=== PATIENT | male | born 1950 | race Caucasian/White ===

== ENCOUNTER 2016-09-14 07:50 | Inpatient (IN) | payer MEDICARE ==
[~2016-09-14] VITALS: Ht 177.8 cm; Wt 77.0 kg
[2016-09-14] VITALS (9 sets, daily range): BP systolic 76–161; BP diastolic 53–99; PULSE 71–90; RESP 16–20; TEMP 97.6–98.4; O2SAT 94–96
[~2016-09-14 07:50] MED LIST: ASAC800T PO; CANA10002 RE; CILO50 PO; CLOP75 PO; ECOT81TA2 PO; LISI-363 PO; LOVA40TA PO; METO25 PO; SODIPAK2; TAB-TAB PO; TAMS0.4C67 PO
--- NOTE | 2016-09-14 08:08 | PD ---
HPI Chief Complaint: Syncope/Near-Syncope Time Seen by Provider: 07:58 Travel History International Travel<30 days: No Contact w/Intl Traveler<30days: No Traveled to known affect area: No History of Present Illness HPI 66-year-old male with history of hypertension, CAD, previous MIs, left-sided carotid endarterectomy, CABG, femoral stents, presents to the ER today because he states that he has been coughing up small amounts of blood after taking several days of aspirin and ibuprofen for a toothache. He states that he felt very clammy this morning, tried to jump up from bed quickly and had a near syncopal episode. He denies any chest pains, shortness of breath, palpitations , fevers, black stools, or other symptoms. Modifying Factors: None Associated Signs & Symptoms: Spitting up blood, near syncopal episode Risk Factors: Cardiac history PFSH Past Medical History Hx Anticoagulant Therapy: Yes (PLAVIX ) Arthritis: No Asthma: No Autoimmune Disease: No Blood Disorders: No Anxiety: No Depression: No Heart Rhythm Problems: No Cancer: No Cardiac Catheterization: Yes (2009) Cardiovascular Problems: Yes (SC) High Cholesterol: Yes Chemotherapy: No Chest Pain: No Congestive Heart Failure: No COPD: No Cerebrovascular Accident: Yes Coronary Artery Disease: Yes Diabetes: No Endocrine: No Gastrointestinal Disorders: Yes GERD: Yes Genitourinary: No Headaches: No Hiatal Hernia: No Hypertension: Yes Immune Disorder: No Kidney Stones: No Musculoskeletal: No Neurologic: Yes Psychiatric: No Reproductive: No Respiratory: No Migraines: No Myocardial Infarction: Yes (X2) Radiation Therapy: No Renal Failure: No Seizures: No Sleep Apnea: No Thyroid Disease: No Ulcer: No Past Surgical History Abdominal Surgery: No AICD: Yes Arteriovenous Shunt: No Cardiac Surgery: Yes (left carotid endarterectomy in April 2011) Coronary Artery Bypass Graft: Yes (3 VESSEL 2001, 1 vessle and valve 2009) Coronary Stent: Yes Ear Surgery: No Endocrine Surgery: No Eye Surgery: No Genitourinary Surgery: No Gynecologic Surgery: No Insulin Pump: No Joint Replacement: No Oral Surgery: No Pacemaker: Yes (wire) Thoracic Surgery: No Other Surgery: Yes (pacer wire) Social History Alcohol Use: Yes (daily) Tobacco Use: Yes (CIGARS 1 X WEEK) Substance Use: Yes (marijuana) Allergies-Medications (Allergen,Severity, Reaction): Coded Allergies: MRI PRECAUTION (Verified Allergy, Severe, PACEMAKER LEAD PER DR MARTINEZ - 08/01/2010 KMD, 09/14/16) Nitrates (Verified Allergy, Severe, Hypotension, 09/14/16) Reported Meds & Prescriptions Reported Meds & Active Scripts Active Reported Cilostazol 50 Mg Tab 50 Mg PO BID Multi Vitamin (Multiple Vitamin) 1 Tab Tab 1 Tab PO DAILY Metoprolol Tartrate 25 Mg Tab 12.5 Mg PO BID Asacol HD (Mesalamine) 800 Mg Tab 800 Mg PO BID Swallow whole. Take on an empty stomach. Lovastatin 40 Mg Tab 80 Mg PO HS Lisinopril 20 Mg Tab 20 Mg PO BID Plavix (Clopidogrel Bisulfate) 75 Mg Tab 75 Mg PO DAILY Canasa Supp (Mesalamine) 1,000 Mg Supp 1,000 Mg [place] HS Aspirin 325 Mg Tab 325 Mg PO DAILY Review of Systems Except as stated in HPI: all other systems reviewed are Neg Physical Exam Narrative GENERAL: Well-nourished, well-developed elderly white male patient in no acute distress at rest. Awake and oriented 3. SKIN: Warm and dry. HEAD: Normocephalic. EYES: No scleral icterus. No injection or drainage. NECK: Supple, trachea midline. CARDIOVASCULAR: Regular rate and rhythm without murmurs, gallops, or rubs. RESPIRATORY: Breath sounds equal bilaterally. No accessory muscle use. GASTROINTESTINAL: Abdomen soft, non-tender, nondistended. MUSCULOSKELETAL: No cyanosis, or edema. BACK: Nontender without obvious deformity. No CVA tenderness. Data Data Last Documented VS Vital Signs Date Time Temp Pulse Resp B/P Pulse Ox O2 Delivery O2 Flow Rate FiO2 09/14/16 10:00 97.8 71 18 128/87 96 Room Air Orders Electrocardiogram (09/14/16 08:04) Complete Blood Count With Diff (09/14/16 08:04) Comprehensive Metabolic Panel (09/14/16 08:04) Magnesium (Mg) (09/14/16 08:04) B-Type Natriuretic Peptide (09/14/16 08:04) Ckmb (Isoenzyme) Profile (09/14/16 08:04) Troponin I (09/14/16 08:04) Act Partial Throm Time (Ptt) (09/14/16 08:04) Prothrombin Time / Inr (Pt) (09/14/16 08:04) Urinalysis - C+S If Indicated (09/14/16 08:04) Chest, Single Ap (09/14/16 08:04) Ct Brain W/O Iv Contrast(Rout) (09/14/16 08:04) Ecg Monitoring (09/14/16 08:04) Iv Access Insert/Monitor (09/14/16 08:04) Oximetry (09/14/16 08:04) Sodium Chloride 0.9% Flush (Ns Flush) (09/14/16 08:15) Orthostatic Vital Signs (09/14/16 08:04) Salicylates (Aspirin) (09/14/16 08:11) Ondansetron Inj (Zofran Inj) (09/14/16 08:45) Sodium Chlor 0.9% 1000 Ml Inj (Ns 1000 M (09/14/16 09:00) Cta Thor Abd Aorta W Iv C W3d (09/14/16 ) Iohexol 350 Inj (Omnipaque 350 Inj) (09/14/16 10:15) Labs Laboratory Tests Test 09/14/16 09/14/16 09/14/16 08:11 09:06 10:30 Prothrombin Time 11.2 SEC Prothromb Time International 1.0 RATIO Ratio Activated Partial 22.4 SEC Thromboplast Time Sodium Level 141 MEQ/L Potassium Level 4.1 MEQ/L Chloride Level 105 MEQ/L Carbon Dioxide Level 30.1 MEQ/L Anion Gap 6 MEQ/L Blood Urea Nitrogen 27 MG/DL Creatinine 1.28 MG/DL Estimat Glomerular Filtration 56 ML/MIN Rate Random Glucose 169 MG/DL Calcium Level 8.3 MG/DL Magnesium Level 1.7 MG/DL Total Bilirubin 0.3 MG/DL Aspartate Amino Transf 15 U/L (AST/SGOT) Alanine Aminotransferase 28 U/L (ALT/SGPT) Alkaline Phosphatase 41 U/L Total Creatine Kinase 77 U/L Troponin I 0.03 NG/ML B-Type Natriuretic Peptide 135 PG/ML Total Protein 6.1 GM/DL Albumin 3.3 GM/DL Salicylates Level 8.1 MG/DL White Blood Count 9.6 TH/MM3 Red Blood Count 3.36 MIL/MM3 Hemoglobin 10.4 GM/DL Hematocrit 30.2 % Mean Corpuscular Volume 90.0 FL Mean Corpuscular Hemoglobin 31.1 PG Mean Corpuscular Hemoglobin 34.5 % Concent Red Cell Distribution Width 12.9 % Platelet Count 210 TH/MM3 Mean Platelet Volume 8.4 FL Neutrophils (%) (Auto) 76.7 % Lymphocytes (%) (Auto) 13.6 % Monocytes (%) (Auto) 8.5 % Eosinophils (%) (Auto) 0.9 % Basophils (%) (Auto) 0.3 % Neutrophils # (Auto) 7.4 TH/MM3 Lymphocytes # (Auto) 1.3 TH/MM3 Monocytes # (Auto) 0.8 TH/MM3 Eosinophils # (Auto) 0.1 TH/MM3 Basophils # (Auto) 0.0 TH/MM3 CBC Comment DIFF FINAL Differential Comment Urine Color YELLOW Urine Turbidity CLEAR Urine pH 6.0 Urine Specific [place] 1.025 Urine Protein NEG mg/dL Urine Glucose (UA) TRACE mg/dL Urine Ketones NEG mg/dL Urine Occult Blood NEG Urine Nitrite NEG Urine Bilirubin NEG Urine Urobilinogen LESS THAN 2.0 MG/DL Urine Leukocyte Esterase NEG Urine RBC 1 /hpf Urine WBC 1 /hpf Urine Hyaline Casts 4 /lpf Urine Mucus FEW /lpf Microscopic Urinalysis Comment CULT NOT INDICATED MDM Medical Decision Making Medical Screen Exam Complete: Yes Emergency Medical Condition: Yes Medical Record Reviewed: Yes Interpretation(s) EKG shows NSR, no ST elevation or depression, and no arrhythmias. No significant T-wave inversions. Laboratory Tests Test 09/14/16 09/14/16 09/14/16 08:11 09:06 10:30 Activated Partial 22.4 SEC Thromboplast Time (24.3-30.1) Blood Urea Nitrogen 27 MG/DL (7-18) Estimat Glomerular Filtration 56 ML/MIN (>89) Rate Random Glucose 169 MG/DL (74-106) Calcium Level 8.3 MG/DL (8.5-10.1) Alkaline Phosphatase 41 U/L (45-117) B-Type Natriuretic Peptide 135 PG/ML (0-100) Total Protein 6.1 GM/DL (6.4-8.2) Albumin 3.3 GM/DL (3.4-5.0) Red Blood Count 3.36 MIL/MM3 (4.50-5.90) Hemoglobin 10.4 GM/DL (13.0-17.0) Hematocrit 30.2 % (39.0-51.0) Neutrophils (%) (Auto) 76.7 % (16.0-70.0) Monocytes (%) (Auto) 8.5 % (0.0-8.0) Urine Mucus FEW /lpf (OCC) Last [address] 09/14/16 0804 Signed Impressions: Service Date/Time: Wednesday, September 14, 2016 08:30 - CONCLUSION: No acute disease. Aden Cardenas MD Aorta CTA 09/14/16 0000 Signed Impressions: Service Date/Time: Wednesday, September 14, 2016 10:07 - CONCLUSION: 1. No evidence of aortic dissection. 2. Moderate focal stenosis involving the origin of the left subclavian artery. 3. Scattered fibrotic scarring and emphysematous changes bilaterally. 4. Uncomplicated colonic diverticulosis. 5. Enlarged prostate with central calcifications. Aden Cardenas MD Differential Diagnosis Coughing up blood, near syncopal episodepneumonia versus hemoptysis versus gastric ulcer versus coagulopathy versus dysrhythmias versus dehydration versus metabolic issues versus GI bleed Narrative Course Patient was initially hypertensive on initial evaluation but became hypotensive during the evaluation in the ER and IV fluids were initiated on the patient. After IV fluid bolus, his blood pressure improves. He appears to be orthostatic. He has Had a bed flat in the ER. Lab work did not indicate significant metabolic issues. His BUN is mildly elevated but not as much as expected for patient with severe dehydration. CAT scans did not reveal any signs of acute pathology. He has no focal neurological deficits. At this point , my plan would be to admit the patient for further evaluation and treatment of hypotension and syncope. Case was discussed with Dr. Willams for admission. Diagnosis Primary Impression: SYNCOPE AND COLLAPSE Admitting Information Admitting Physician Requests: Admit Reynaldo Tay MD Sep 14, 2016 08:08 Reynaldo Tay MD Sep 14, 2016 08:08
[2016-09-14] MEDS ORDERED: SODIUM CHLORIDE 0.9% FLUSH 5 ML FLUSH IVF PRN (08:15)
[2016-09-14 08:41] LABS: APTT (PATIENT) 22.4 SEC (24.3-30.1); PROTHROMBIN TIME - PATIENT 11.2 SEC (9.8-11.6)
[2016-09-14 08:45] LABS: ALT (GPT) 28 U/L (12-78); ANION GAP 6 MEQ/L (5-15); AST (GOT) 15 U/L (15-37); BICARBONATE 30.1 MEQ/L (21.0-32.0); BLOOD UREA NITROGEN 27 MG/DL (7-18); CHLORIDE 105 MEQ/L (98-107); MAGNESIUM 1.7 MG/DL (1.5-2.5); POTASSIUM 4.1 MEQ/L (3.5-5.1); SODIUM (NA) 141 MEQ/L (136-145)
[2016-09-14] MEDS ORDERED: ONDANSETRON HCL 4 MG/2 ML VIAL IV PUSH ONE (08:45)
[2016-09-14 08:50] LABS: ALKALINE PHOSPHATASE 41 U/L (45-117); GLOMERULAR FILTRATION RATE 56 ML/MIN (>89); TOTAL BILIRUBIN ADULT 0.3 MG/DL (0.2-1.0)
[2016-09-14 08:58] LABS: CREATINE KINASE 77 U/L (39-308)
[2016-09-14] MEDS ORDERED: SODIUM CHLOR 0.9% 1000 ML INJ 1,000 ML IV ONE (09:00)
--- NOTE | 2016-09-14 09:14 | RADRPT ---
EXAM DATE/TIME: 09/14/2016 08:30 [facility] COMPARISON: No previous studies available for comparison. INDICATIONS : Dizziness RADIATION DOSE: 42.12 CTDIvol (mGy) MEDICAL HISTORY : Hypertension. Cardiovascular disease Cardiovascular disease SURGICAL HISTORY : None. ENCOUNTER: Initial ACUITY: 1 day PAIN SCALE: 0/10 LOCATION: cranial TECHNIQUE: Multiple contiguous axial images were obtained of the head. Using automated exposure control and adj ustment of the mA and/or kV according to patient size, radiation dose was kept as low as reasonably a chievable to obtain optimal diagnostic quality images. FINDINGS: CEREBRUM: The ventricles are normal for age. No evidence of midline shift, mass lesion, hemorrhage or acute in farction. No extra-axial fluid collections are seen. POSTERIOR FOSSA: The cerebellum and brainstem are intact. The 4th ventricle is midline. The cerebellopontine angle i s unremarkable. EXTRACRANIAL: The visualized portion of the orbits is intact. SKULL: The calvaria is intact. No evidence of skull fracture. CONCLUSION: No acute disease. Aden Cardenas MD on September 14, 2016 at 9:11 Board Certified Radiologist. This report was verified electronically.
[2016-09-14 09:17] LABS: AUTOMATED NEUTROPHIL # 7.4 TH/MM3 (1.8-7.7); BASOPHIL % 0.3 % (0.0-2.0); EOSINOPHIL # 0.1 TH/MM3 (0-0.4); EOSINOPHIL % 0.9 % (0.0-4.0); HEMATOCRIT 30.2 % (39.0-51.0); HEMO FLAGS DIFF FINAL; LYMPH % 13.6 % (9.0-44.0); LYMPHOCYTE # 1.3 TH/MM3 (1.0-4.8); MEAN CORPUSCULAR HEMOGLOBIN 31.1 PG (27.0-34.0); MEAN CORPUSCULAR HGB CONC 34.5 % (32.0-36.0); MONO % 8.5 % (0.0-8.0); NEUT % 76.7 % (16.0-70.0); PLATELET COUNT 210 TH/MM3 (150-450); RED BLOOD COUNT 3.36 MIL/MM3 (4.50-5.90); RED CELL DISTRIBUTION WIDTH 12.9 % (11.6-17.2); WHITE BLOOD COUNT 9.6 TH/MM3 (4.0-11.0)
--- NOTE | 2016-09-14 09:56 | RADRPT ---
EXAM DATE/TIME: 09/14/2016 08:19 [facility] COMPARISON: No previous studies available for comparison. INDICATIONS: Syncope, nausea, chest tightness. MEDICAL HISTORY: Myocardial infarction. SURGICAL HISTORY: CABG. Coronary artery stent. ENCOUNTER: Initial ACUITY: 1 day PAIN SCORE: 0/10 LOCATION: Bilateral chest FINDINGS: Sternal wires from previous bypass are noted. Band and pacing lead is noted on the left. Heart and pulmonary vascularity are normal. Portion of bony skeleton visualized unremarkable. CONCLUSION: Negative chest for acute disease. Anton Amado MD FACR on September 14, 2016 at 9:12 Board Certified Radiologist. This report was verified electronically.
[2016-09-14] MEDS ORDERED: IOHEXOL 350 MG/ML 10 ML VIAL (for RAD DIAG) IV ONE (10:15)
[2016-09-14 10:49] LABS: BLOOD, URINE NEG (NEG); GLUCOSE,URINE TRACE mg/dL (NEG); HYALINE CAST, URINE 4 /lpf (RARE); KETONE, URINE NEG (NEG); MUCUS URINE FEW /lpf (OCC); NITRITE,URINE NEG (NEG); URINE COLOR YELLOW (YELLW/STRAW)
[2016-09-14 10:51] LABS: COMMENT (UR) CULT NOT INDICATED; CULTURE IF INDICATED CULT NOT INDICATED
[2016-09-14] MEDS ORDERED: LOVA40TA PO (10:51)
[2016-09-14] MEDS ORDERED: PLAV75TA29 PO (10:51)
[2016-09-14] MEDS ORDERED: ASPI325T PO (10:51)
[2016-09-14] MEDS ORDERED: ASAC800T PO (10:51)
[2016-09-14] MEDS ORDERED: LISI-515 PO (10:51)
[2016-09-14] MEDS ORDERED: CILO50TA PO (10:51)
[2016-09-14] MEDS ORDERED: METO25TA3 PO (10:51)
[2016-09-14] MEDS ORDERED: CANA10002 PR (10:51)
[2016-09-14] MEDS ORDERED: MULT-135 PO (10:51)
--- NOTE | 2016-09-14 11:03 | EKG ---
Date Performed: 09/14/2016 Time Performed: 08:08:06 PTAGE: 66 years EKG: Sinus rhythm POSSIBLE RIGHT VENTRICULAR CONDUCTION DELAY BORDERLINE ECG PREVIOUS TRACING : 01/16/2016 07.07 No significant change from previous tracing noted. DOCTOR: Eddie Clemons Interpretating Date/Time 09/14/2016 11:02:16
--- NOTE | 2016-09-14 11:16 | RADRPT ---
EXAM DATE/TIME: 09/14/2016 10:07 [facility] COMPARISON: No previous studies available for comparison. INDICATIONS : Syncope. Coughing up blood. Evaluate for aortic dissection. IV CONTRAST: 75 cc Omnipaque 350 (iohexol) IV RADIATION DOSE: 5.52 CTDIvol (mGy) MEDICAL HISTORY : Hypertension. Cardiovascular disease SURGICAL HISTORY : CABG ENCOUNTER: Initial ACUITY: 1 day PAIN SCALE: 0/10 LOCATION: chest TECHNIQUE: Volumetric scanning was performed using a multi-row detector CT scanner. The data was post processed with a variety of visualization algorithms including full volume maximum intensity projection, multi -planar sliding thin slab reformation, curved planar reformation, and surface rendering techniques. Using automated exposure control and adjustment of the mA and/or kV according to patient size, radiat ion dose was kept as low as reasonably achievable to obtain optimal diagnostic quality images. FINDINGS: LUNGS: Scattered fibrotic scarring in the minimal emphysematous changes are noted bilaterally. There is no c onsolidation or pneumothorax. No concerning pulmonary nodule is visualized. No pleural fluid is pre sent. MEDIASTINUM: No abnormally enlarged lymph nodes by CT criteria. No axillary or hilar abnormalities are identified. ABDOMEN: Uncomplicated colonic diverticulosis is noted. The liver and spleen are free of focal defects. The ga llbladder and pancreas demonstrate no abnormality. The adrenal glands are normal. The kidneys demonst rate no evidence of solid renal mass or hydronephrosis. No free fluid or abdominal masses are identif ied. No para-aortic adenopathy is seen. PELVIS: No evidence of free fluid or pelvic mass. No abnormally enlarged inguinal or retroperitoneal lymph no jess are present. The bladder is unremarkable. The prostate is enlarged and contains central calcifica tions. THORACIC AORTA: The thoracic aortic root is normal with normal branching of the great vessels. There is no evidence of aneurysm or dissection. There is moderate focal stenosis involving the origin of the left subclavi an artery. ABDOMINAL AORTA: The aorta is normal in caliber without aneurysm or dissection. The renal arteries are patent bilater ally. The proximal celiac and superior mesenteric arteries are patent and normal in diameter. PELVIC VESSELS: Bilateral common iliac stents are noted. The internal iliac and external iliac vessels are patent wit hout aneurysm or stenosis. CONCLUSION: 1. No evidence of aortic dissection. 2. Moderate focal stenosis involving the origin of the left subclavian artery. 3. Scattered fibrotic scarring and emphysematous changes bilaterally. 4. Uncomplicated colonic diverticulosis. 5. Enlarged prostate with central calcifications. Aden Cardenas MD on September 14, 2016 at 11:07 Board Certified Radiologist. This report was verified electronically.
[2016-09-14] MEDS ORDERED: ACETAMINOPHEN 325 MG TAB PO PRN (12:30)
[2016-09-14] MEDS ORDERED: PANTOPRAZOLE SODIUM 40 MG VIAL IV PUSH SCH (12:30)
[2016-09-14] MEDS ORDERED: SODIUM CHLOR 0.9% 1000 ML INJ 1,000 ML IV SCH ×2 (12:30→18:00)
[2016-09-14] MEDS ORDERED: ONDANSETRON HCL 4 MG/2 ML VIAL IV PRN (12:30)
--- NOTE | 2016-09-14 16:38 | HHI.HP ---
HPI Service [facility] Hospitalists Primary Care Physician Galindo Garcia MD Admission Diagnosis vomiting blood. Chief Complaint: vomiting blood Travel History International Travel<30 Days: No Contact w/Intl Traveler <30 Da: No Traveled to Known Affected Are: No History of Present Illness Pt is 66 yo with cad and pad who developed right bottom molar toothache 3 days ago. His dentist advised extraction of 2 bottom molars for decay in past. he flossed on Wednesday then developed severe intractable pain. He began taking asa 650mg q2hr x 3 days , he took ibuprofen x 10 pills, advil pm x 6 pills and also ultram and his usual plavix and pletal. he usually takes 3 or4 4 shots whiskey per day but none over past 3 days. this AM he awoke in sweat with epigastric discomfort. He jumped up from bed and nearly passed out but caught himsel and no loc. witness vomting of bright red blood into toilet. no melena or brbpr..no further episodes. In ED pt was orthostatic. He also reports mild dizziness upon standing for many months and stopped flomax..but still with some sx's. Review of Systems Other vomited blood. epigastric pain. near syncope. toothache Past Family Social History Past Medical History cad, cabg x 3, redo cabg x 1 with mitral valve repair Left CEA bilateral lower ext stenting for pad htn ulcerative colitis hyperlipidemia Reported Medications Cilostazol 50 Mg Tab 50 Mg PO BID Multi Vitamin (Multiple Vitamin) 1 Tab Tab 1 Tab PO DAILY Metoprolol Tartrate 25 Mg Tab 12.5 Mg PO BID Asacol HD (Mesalamine) 800 Mg Tab 800 Mg PO BID Swallow whole. Take on an empty stomach. Lovastatin 40 Mg Tab 80 Mg PO HS Lisinopril 20 Mg Tab 20 Mg PO BID Plavix (Clopidogrel Bisulfate) 75 Mg Tab 75 Mg PO DAILY Canasa Supp (Mesalamine) 1,000 Mg Supp 1,000 Mg [place] HS Aspirin 325 Mg Tab 325 Mg PO DAILY Allergies: Coded Allergies: MRI PRECAUTION (Verified Allergy, Severe, PACEMAKER LEAD PER DR MARTINEZ - 08/01/2010 [facility], 09/14/16) Nitrates (Verified Allergy, Severe, Hypotension, 09/14/16) Family History nc Social History tob 1ppd x 40yrs quit x 8yrs 3 or 4 shots whiskey per day Physical Exam Vital Signs heent neg heart reg lung cta abd s/nt/nabs ext no edema tatoos. Vital Signs Date Time Temp Pulse Resp B/P Pulse Ox O2 Delivery O2 Flow Rate FiO2 09/14/16 15:43 98.4 85 16 129/75 95 09/14/16 14:00 86 18 127/72 95 Room Air 09/14/16 13:00 82 20 92/59 94 Room Air 09/14/16 12:00 90 20 122/75 94 Room Air 09/14/16 10:00 97.8 71 18 128/87 96 Room Air 09/14/16 09:08 66 18 94/54 09/14/16 09:08 70 18 76/53 09/14/16 08:16 88 18 96 Room Air 09/14/16 08:16 96 Room Air 09/14/16 08:00 97.6 84 18 161/99 96 Laboratory Laboratory Tests Test 09/14/16 09/14/16 09/14/16 08:11 09:06 10:30 Prothrombin Time 11.2 Prothromb Time International 1.0 Ratio Activated Partial 22.4 Thromboplast Time Sodium Level 141 Potassium Level 4.1 Chloride Level 105 Carbon Dioxide Level 30.1 Anion Gap 6 Blood Urea Nitrogen 27 Creatinine 1.28 Estimat Glomerular Filtration 56 Rate Random Glucose 169 Calcium Level 8.3 Magnesium Level 1.7 Total Bilirubin 0.3 Aspartate Amino Transf 15 (AST/SGOT) Alanine Aminotransferase 28 (ALT/SGPT) Alkaline Phosphatase 41 Total Creatine Kinase 77 Troponin I 0.03 B-Type Natriuretic Peptide 135 Total Protein 6.1 Albumin 3.3 Salicylates Level 8.1 White Blood Count 9.6 Red Blood Count 3.36 Hemoglobin 10.4 Hematocrit 30.2 Mean Corpuscular Volume 90.0 Mean Corpuscular Hemoglobin 31.1 Mean Corpuscular Hemoglobin 34.5 Concent Red Cell Distribution Width 12.9 Platelet Count 210 Mean Platelet Volume 8.4 Neutrophils (%) (Auto) 76.7 Lymphocytes (%) (Auto) 13.6 Monocytes (%) (Auto) 8.5 Eosinophils (%) (Auto) 0.9 Basophils (%) (Auto) 0.3 Neutrophils # (Auto) 7.4 Lymphocytes # (Auto) 1.3 Monocytes # (Auto) 0.8 Eosinophils # (Auto) 0.1 Basophils # (Auto) 0.0 CBC Comment DIFF FINAL Differential Comment Urine Color YELLOW Urine Turbidity CLEAR Urine pH 6.0 Urine Specific [place] 1.025 Urine Protein NEG Urine Glucose (UA) TRACE Urine Ketones NEG Urine Occult Blood NEG Urine Nitrite NEG Urine Bilirubin NEG Urine Urobilinogen LESS THAN 2.0 Urine Leukocyte Esterase NEG Urine RBC 1 Urine WBC 1 Urine Hyaline Casts 4 Urine Mucus FEW Microscopic Urinalysis Comment CULT NOT INDICATED Result Diagram: 09/14/1690509/14/16 0811 Assessment and Plan Problem List: (1) Hematemesis Status: Acute Plan: Pt is 66 yo with cad and pad who developed right bottom molar toothache 3 days ago. His dentist advised extraction of 2 bottom molars for decay in past. he flossed on Wednesday then developed severe intractable pain. He began taking asa 650mg q2hr x 3 days , he took ibuprofen x 10 pills, advil pm x 6 pills and also ultram and his usual plavix and pletal. he usually takes 3 or4 4 shots whiskey per day but none over past 3 days. this AM he awoke in sweat with epigastric discomfort. He jumped up from bed and nearly passed out but caught himsel and no loc. witness vomting of bright red blood into toilet. no melena or brbpr.. In ED pt was orthostatic. He also reports mild dizziness upon standing for many months and stopped flomax..but still with some sx's. -concern would be development of erosions or ulcers in upper gi tract from overuse of nsaids and antiplts consult GI hold nsaids ppi recheck hgb clears and ivf overnight. dvt prophyaxis. (2) Drug side effects Status: Acute Plan: see above (3) Near syncope Status: Acute Plan: see above (4) Blood loss anemia Status: Acute Plan: see above (5) IBD (inflammatory bowel disease) Status: Chronic (6) Hypertension Status: Chronic (7) PAD (peripheral artery disease) Status: Chronic Physician Certification 2 Midnight Certification Type: Admission for Inpatient Services Order for Inpatient Services 2The services are ordered in accordance with Medicare regulations or non- Medicare payer requirements, as applicable. In the case of services not specified as inpatient-only, they are appropriately provided as inpatient services in accordance with the 2-midnight benchmark. Estimated LOS (days): 2 2 days is the estimated time the patient will need to remain in the hospital, assuming treatment plan goals are met and no additional complications. Post-Hospital Plan: Home Tyrell Willams MD Sep 14, 2016 16:38
[2016-09-14] MEDS ORDERED: PROT40TA PO ×2 (18:04→18:39)
--- NOTE | 2016-09-14 18:25 | PD.CONS ---
HPI History of Present Illness This is a 66 year old male who apparently presents with complaints of upper abdominal discomfort and near syncope then he vomited up some bright red blood the patient has known underlying colitis for which he takes Asacol and apparently he had been experiencing some molar pain and has been using ibuprofen and aspirin for the past several days this is his first time with hematemesis currently is comfortable in bed denies any pain nausea or vomiting denies any melena or hematochezia PFSH Past Medical History cabg x 3, redo cabg x 1 with mitral valve repair Left CEA bilateral lower ext stenting for pad htn ulcerative colitis hyperlipidemia Coded Allergies: MRI PRECAUTION (Verified Allergy, Severe, PACEMAKER LEAD PER DR MARTINEZ - 08/01/2010 KMD, 09/14/16) Nitrates (Verified Allergy, Severe, Hypotension, 09/14/16) Medications Cilostazol 50 Mg Tab 50 Mg PO BID Multi Vitamin (Multiple Vitamin) 1 Tab Tab 1 Tab PO DAILY Metoprolol Tartrate 25 Mg Tab 12.5 Mg PO BID Asacol HD (Mesalamine) 800 Mg Tab 800 Mg PO BID Swallow whole. Take on an empty stomach. Lovastatin 40 Mg Tab 80 Mg PO HS Lisinopril 20 Mg Tab 20 Mg PO BID Plavix (Clopidogrel Bisulfate) 75 Mg Tab 75 Mg PO DAILY Canasa Supp (Mesalamine) 1,000 Mg Supp 1,000 Mg [place] HS Aspirin 325 Mg Tab 325 Mg PO DAILY Family History Noncontributory Social History tob 1ppd x 40yrs quit x 8yrs 3 or 4 shots whiskey per day Review of Systems ROS Review of systems Patient denies any headache dizziness blurry vision, denies any chest pain shortness of breath cough fever chills, Denies any palpitations or fatigue denies any polyuria dysuria hematuria, denies any numbness tingling or weakness, denies any skin rash pruritus or jaundice, denies any easy bruising or bleeding tendency, denies any recent change in mood GI Exam Vitals I&O Vital Signs Date Time Temp Pulse Resp B/P Pulse Ox O2 Delivery O2 Flow Rate FiO2 09/14/16 15:43 98.4 85 16 129/75 95 09/14/16 14:00 86 18 127/72 95 Room Air 09/14/16 13:00 82 20 92/59 94 Room Air 09/14/16 12:00 90 20 122/75 94 Room Air 09/14/16 10:00 97.8 71 18 128/87 96 Room Air 09/14/16 09:08 66 18 94/54 09/14/16 09:08 70 18 76/53 09/14/16 08:16 88 18 96 Room Air 09/14/16 08:16 96 Room Air 09/14/16 08:00 97.6 84 18 161/99 96 Imaging Last Impressions Head CT 09/14/16 0804 Signed Impressions: Service Date/Time: Wednesday, September 14, 2016 08:30 - CONCLUSION: No acute disease. Aden Cardenas MD Chest X-Ray 09/14/16 0804 Signed Impressions: Service Date/Time: Wednesday, September 14, 2016 08:19 - CONCLUSION: Negative chest for acute disease. Anton Amado MD FACR Aorta CTA 09/14/16 0000 Signed Impressions: Service Date/Time: Wednesday, September 14, 2016 10:07 - CONCLUSION: 1. No evidence of aortic dissection. 2. Moderate focal stenosis involving the origin of the left subclavian artery. 3. Scattered fibrotic scarring and emphysematous changes bilaterally. 4. Uncomplicated colonic diverticulosis. 5. Enlarged prostate with central calcifications. Aden Cardenas MD Laboratory Test 09/14/16 09/14/16 09/14/16 08:11 09:06 10:30 Prothrombin Time 11.2 SEC Prothromb Time International 1.0 RATIO Ratio Activated Partial 22.4 SEC Thromboplast Time Sodium Level 141 MEQ/L Potassium Level 4.1 MEQ/L Chloride Level 105 MEQ/L Carbon Dioxide Level 30.1 MEQ/L Anion Gap 6 MEQ/L Blood Urea Nitrogen 27 MG/DL Creatinine 1.28 MG/DL Estimat Glomerular Filtration 56 ML/MIN Rate Random Glucose 169 MG/DL Calcium Level 8.3 MG/DL Magnesium Level 1.7 MG/DL Total Bilirubin 0.3 MG/DL Aspartate Amino Transf 15 U/L (AST/SGOT) Alanine Aminotransferase 28 U/L (ALT/SGPT) Alkaline Phosphatase 41 U/L Total Creatine Kinase 77 U/L Troponin I 0.03 NG/ML B-Type Natriuretic Peptide 135 PG/ML Total Protein 6.1 GM/DL Albumin 3.3 GM/DL Salicylates Level 8.1 MG/DL White Blood Count 9.6 TH/MM3 Red Blood Count 3.36 MIL/MM3 Hemoglobin 10.4 GM/DL Hematocrit 30.2 % Mean Corpuscular Volume 90.0 FL Mean Corpuscular Hemoglobin 31.1 PG Mean Corpuscular Hemoglobin 34.5 % Concent Red Cell Distribution Width 12.9 % Platelet Count 210 TH/MM3 Mean Platelet Volume 8.4 FL Neutrophils (%) (Auto) 76.7 % Lymphocytes (%) (Auto) 13.6 % Monocytes (%) (Auto) 8.5 % Eosinophils (%) (Auto) 0.9 % Basophils (%) (Auto) 0.3 % Neutrophils # (Auto) 7.4 TH/MM3 Lymphocytes # (Auto) 1.3 TH/MM3 Monocytes # (Auto) 0.8 TH/MM3 Eosinophils # (Auto) 0.1 TH/MM3 Basophils # (Auto) 0.0 TH/MM3 CBC Comment DIFF FINAL Differential Comment Urine Color YELLOW Urine Turbidity CLEAR Urine pH 6.0 Urine Specific [place] 1.025 Urine Protein NEG mg/dL Urine Glucose (UA) TRACE mg/dL Urine Ketones NEG mg/dL Urine Occult Blood NEG Urine Nitrite NEG Urine Bilirubin NEG Urine Urobilinogen LESS THAN 2.0 MG/DL Urine Leukocyte Esterase NEG Urine RBC 1 /hpf Urine WBC 1 /hpf Urine Hyaline Casts 4 /lpf Urine Mucus FEW /lpf Microscopic Urinalysis Comment CULT NOT INDICATED Physical Examination HEENT: Pupils round and reactive to light; normocephalic; atraumatic; no jaundice. Throat is clear. NECK: Neck is supple, no JVD, no lymphadenopathy. CHEST: Chest is clear to auscultation and percussion. CARDIAC: Regular rate and rhythm with no murmur gallop or rubs. ABDOMEN: Soft, nondistended, nontender; no hepatosplenomegaly; bowel sounds are present in all four quadrants. EXTREMITIES: No clubbing, cyanosis, or edema. SKIN: Normal; no rash; no jaundice. PRE ASSEMBLY WIRER: No focal deficits; alert and oriented times three. Assessment and Plan Plan Patient presenting with hematemesis with near syncope with noted anemia with known aspirin and NSAID use and underlying ulcerative colitis Patient is warned about use of aspirin and nonsteroidals No evidence of any active bleeding at this point Patient is advised an EGD and a colonoscopy Continue with current supportive care with PPI close monitoring and transfusions as needed Bry Montaño MD Sep 14, 2016 18:25
[2016-09-14] MEDS ORDERED: MAGNESIUM CITRATE SOLN 300 ML BTL PO ONE (20:00)
[2016-09-14] MEDS ORDERED: METOPROLOL TARTRATE 25 MG TAB PO SCH (21:00)
[2016-09-14] MEDS ORDERED: PRAVASTATIN SOD 80 MG TAB PO SCH (21:00)
[2016-09-15] MEDS ORDERED: MAGNESIUM CITRATE SOLN 300 ML BTL PO ONE (05:00)
[2016-09-15] MEDS ORDERED: MULTIVITAMIN TAB PO SCH (09:00)
== END 2016-09-14 19:31 | disposition left against medical advice (07) | DRG 378 ==
LOC: NEPC 07:50 → NEDA 11:42 → NEPFCDU 15:40
PROVIDERS: ADMIT Hospitalist; ATTEND Hospitalist
DX: K92.0 Hematemesis (principal); D62 Acute posthemorrhagic anemia; I10 Essential (primary) hypertension; K51.90 Ulcerative colitis, unspecified, without complications; I95.1 Orthostatic hypotension; I25.10 Atherosclerotic heart disease of native coronary artery without angina pectoris; I25.2 Old myocardial infarction; K21.9 Gastro-esophageal reflux disease without esophagitis; I73.9 Peripheral vascular disease, unspecified; E78.5 Hyperlipidemia, unspecified; K02.9 Dental caries, unspecified; F12.90 Cannabis use, unspecified, uncomplicated; Z72.0 Tobacco use; Z86.73 Personal history of transient ischemic attack (TIA), and cerebral infarction without residual deficits; Z95.1 Presence of aortocoronary bypass graft; Z95.5 Presence of coronary angioplasty implant and graft
CPT/HCPCS: 70450; 71010; 71275; 74174; 80053; 80329; 81001; 82550; 83735; 83880; 84484; 85025; 85610; 85730; 93005; 96374; 96375; C9113; G0480; J2405; J7030; Q9967

== ENCOUNTER 2016-09-15 01:07 | Inpatient (IN) | payer MEDICARE ==
[~2016-09-15] VITALS: Ht 177.8 cm; Wt 75.0 kg
[~2016-09-15 01:07] MED LIST changes: +ASPI325T PO; +CANA10002 PR; -CANA10002 RE; -CILO50 PO; +CILO50TA PO; -CLOP75 PO; -ECOT81TA2 PO; -LISI-363 PO; +LISI-515 PO; -METO25 PO; +METO25TA3 PO; +MULT-135 PO; +PLAV75TA29 PO; +PROT40TA PO; -SODIPAK2; -TAB-TAB PO; -TAMS0.4C67 PO
[2016-09-15 01:10] VITALS: BP 140/90; PULSE 111; RESP 18; TEMP 98.5; O2SAT 96
--- NOTE | 2016-09-15 06:12 | PD ---
HPI Chief Complaint: GI Complaint Time Seen by Provider: 05:52 Travel History International Travel<30 days: No Contact w/Intl Traveler<30days: No Traveled to known affect area: No History of Present Illness HPI 66yo M with PMH of HTN, CAD, CABG, left carotid endarterectomy, ulcerative colitis presents to the ED with c/o episode of dark blood per rectum at midnight last night after signing out AMA yesterday. Pt was admitted after hematemesis after overusing aspirin and ibuprofen for toothache. Pt was seen by GI Dr. Shultz who advised on EGD and colonoscopy. Pt states he got scared, panic and left AMA. However, pt was diaphoretic and felt weak during the episode of dark blood per rectum so decided to return. PFSH Past Medical History Hx Anticoagulant Therapy: Yes (ASA) Arthritis: No Asthma: No Autoimmune Disease: No Blood Disorders: No Anxiety: No Depression: No Heart Rhythm Problems: No Cancer: No Cardiac Catheterization: Yes (2009) Cardiovascular Problems: Yes (HTN, OPEN HEART SURGERY) High Cholesterol: Yes Chemotherapy: No Chest Pain: No Congestive Heart Failure: No COPD: No Cerebrovascular Accident: Yes (TIA) Coronary Artery Disease: Yes Diabetes: No Endocrine: No Gastrointestinal Disorders: Yes GERD: Yes Genitourinary: No Headaches: No Hiatal Hernia: No Hypertension: Yes Immune Disorder: No Implanted Vascular Access Dvce: No Kidney Stones: No Musculoskeletal: No Neurologic: Yes Psychiatric: No Reproductive: No Respiratory: No Migraines: No Myocardial Infarction: Yes (X2) Radiation Therapy: No Renal Failure: No Seizures: No Sleep Apnea: No Thyroid Disease: No Ulcer: No Past Surgical History Abdominal Surgery: No AICD: Yes Arteriovenous Shunt: No Cardiac Surgery: Yes (left carotid endarterectomy in April 2011) Coronary Artery Bypass Graft: Yes (3 VESSEL 2001, 1 vessle and valve 2009) Coronary Stent: Yes Ear Surgery: No Endocrine Surgery: No Eye Surgery: No Genitourinary Surgery: No Gynecologic Surgery: No Insulin Pump: No Joint Replacement: No Oral Surgery: No Pacemaker: Yes (wire) Thoracic Surgery: No Other Surgery: Yes (TRIPLE BYPASS IN 2001, SINGLE BYPASS IN 2009) Social History Alcohol Use: Yes (daily 4 SHOTS OF WISKEY ) Tobacco Use: No (QUIT ) Substance Use: Yes (cannabis) Allergies-Medications (Allergen,Severity, Reaction): Coded Allergies: MRI PRECAUTION (Verified Allergy, Severe, PACEMAKER LEAD PER DR MARTINEZ - 08/01/2010 KMD, 09/15/16) Nitrates (Verified Allergy, Severe, Hypotension, 09/15/16) Reported Meds & Prescriptions Reported Meds & Active Scripts Active Protonix (Pantoprazole Sodium) 40 Mg Tab 40 Mg PO BID Reported Cilostazol 50 Mg Tab 50 Mg PO BID Multi Vitamin (Multiple Vitamin) 1 Tab Tab 1 Tab PO DAILY Metoprolol Tartrate 25 Mg Tab 12.5 Mg PO BID Asacol HD (Mesalamine) 800 Mg Tab 800 Mg PO BID Swallow whole. Take on an empty stomach. Lovastatin 40 Mg Tab 80 Mg PO HS Lisinopril 20 Mg Tab 20 Mg PO BID Plavix (Clopidogrel Bisulfate) 75 Mg Tab 75 Mg PO DAILY Canasa Supp (Mesalamine) 1,000 Mg Supp 1,000 Mg [place] HS Aspirin 325 Mg Tab 325 Mg PO DAILY Review of Systems Except as stated in HPI: all other systems reviewed are Neg Physical Exam Narrative GENERAL: 66yo M not in distress. SKIN: Warm and dry. HEAD: Atraumatic. Normocephalic. EYES: Pupils equal and round. No scleral icterus. No injection or drainage. ENT: No nasal bleeding or discharge. Mucous membranes pink and moist. NECK: Trachea midline. No JVD. CARDIOVASCULAR: Tachycardic. No murmur appreciated. RESPIRATORY: No accessory muscle use. Clear to auscultation. Breath sounds equal bilaterally. GASTROINTESTINAL: Abdomen soft, non-tender, nondistended. No rebound tenderness or guarding. RECTAL: Black stool, positive hemaprompt. MUSCULOSKELETAL: No obvious deformities. No clubbing. No cyanosis. No edema. NEUROLOGICAL: Awake and alert. No obvious cranial nerve deficits. Motor grossly within normal limits. Normal speech. PSYCHIATRIC: Appropriate mood and affect; insight and judgment normal. Data Data Last Documented VS Vital Signs Date Time Temp Pulse Resp B/P Pulse Ox O2 Delivery O2 Flow Rate FiO2 09/15/16 01:10 98.5 111 18 140/90 96 Room Air Orders Complete Blood Count With Diff (09/15/16 06:12) Basic Metabolic Panel (Bmp) (09/15/16 06:12) Type And Screen (09/15/16 06:13) NPO (09/15/16 06:38) Sodium Chloride 0.9% Flush (Ns Flush) (09/15/16 06:45) Pantoprazole Inj (Protonix Inj) (09/15/16 06:45) Pantoprazole Inj (Protonix Inj) (09/15/16 06:45) Admit Order (Ed Use Only) (09/15/16 07:15) Labs Laboratory Tests Test 09/15/16 09/15/16 06:18 06:21 White Blood Count 7.9 TH/MM3 Red Blood Count 3.58 MIL/MM3 Hemoglobin 10.9 GM/DL Hematocrit 31.9 % Mean Corpuscular Volume 89.1 FL Mean Corpuscular Hemoglobin 30.5 PG Mean Corpuscular Hemoglobin 34.2 % Concent Red Cell Distribution Width 12.8 % Platelet Count 232 TH/MM3 Mean Platelet Volume 8.7 FL Neutrophils (%) (Auto) 73.5 % Lymphocytes (%) (Auto) 16.9 % Monocytes (%) (Auto) 8.7 % Eosinophils (%) (Auto) 0.5 % Basophils (%) (Auto) 0.4 % Neutrophils # (Auto) 5.8 TH/MM3 Lymphocytes # (Auto) 1.3 TH/MM3 Monocytes # (Auto) 0.7 TH/MM3 Eosinophils # (Auto) 0.0 TH/MM3 Basophils # (Auto) 0.0 TH/MM3 CBC Comment DIFF FINAL Differential Comment Sodium Level 140 MEQ/L Potassium Level 3.8 MEQ/L Chloride Level 106 MEQ/L Carbon Dioxide Level 25.0 MEQ/L Anion Gap 9 MEQ/L Blood Urea Nitrogen 28 MG/DL Creatinine 1.04 MG/DL Estimat Glomerular Filtration 72 ML/MIN Rate Random Glucose 109 MG/DL Calcium Level 8.4 MG/DL Blood Type A POSITIVE Antibody Screen NEGATIVE [facility] Medical Decision Making Medical Screen Exam Complete: Yes Emergency Medical Condition: Yes Differential Diagnosis Upper GI bleed vs. lower GI bleed vs. ulcerative colitis Narrative Course 66yo M with ulcerative colitis came in with black stool who AMA yesterday because he was scared. Pt was seen by GI who recommended EGD and endoscopy. Labs reviewed, H/H stable at 10.9/31.9 compared to yesterday at 10.4. Pt was initially mildly tachycardic at 111bpm. BP 140/90. Rectal exam showed black stool that was hemaprompt positive. Protonix bolus and drip ordered. Discussed with Dr. Willams who accepted the patient. Diagnosis Primary Impression: GI bleed Qualified Code: K92.2 - Gastrointestinal hemorrhage, unspecified gastrointestinal hemorrhage type Admitting Information Admitting Physician Requests: it Kalyn Beverly DO Sep 15, 2016 06:12
[2016-09-15 06:38] LABS: AUTOMATED NEUTROPHIL # 5.8 TH/MM3 (1.8-7.7); BASOPHIL % 0.4 % (0.0-2.0); EOSINOPHIL % 0.5 % (0.0-4.0); HEMATOCRIT 31.9 % (39.0-51.0); HEMO FLAGS DIFF FINAL; LYMPH % 16.9 % (9.0-44.0); LYMPHOCYTE # 1.3 TH/MM3 (1.0-4.8); MEAN CELL VOLUME 89.1 FL (80.0-100.0); MEAN CORPUSCULAR HEMOGLOBIN 30.5 PG (27.0-34.0); MEAN CORPUSCULAR HGB CONC 34.2 % (32.0-36.0); MONO % 8.7 % (0.0-8.0); NEUT % 73.5 % (16.0-70.0); PLATELET COUNT 232 TH/MM3 (150-450); RED BLOOD COUNT 3.58 MIL/MM3 (4.50-5.90); RED CELL DISTRIBUTION WIDTH 12.8 % (11.6-17.2); WHITE BLOOD COUNT 7.9 TH/MM3 (4.0-11.0)
[2016-09-15] MEDS ORDERED: SODIUM CHLORIDE 0.9% FLUSH 5 ML FLUSH IVF PRN (06:45)
[2016-09-15] MEDS ORDERED: PANTOPRAZOLE INJ 80 MG in SODIUM CHLORIDE 0.9% INJ 35 ML IV ONE (06:45)
[2016-09-15 06:55] LABS: POTASSIUM 3.8 MEQ/L (3.5-5.1)
[2016-09-15] MEDS ORDERED: ONDANSETRON HCL 4 MG/2 ML VIAL IV PUSH PRN (07:15)
[2016-09-15] MEDS: PANTOPRAZOLE INJ 80 MG in SODIUM CHLORIDE 0.9% INJ 100 ML IV SCH ×2 (07:28→16:22)
[2016-09-15] MEDS ORDERED: PILL SPLITTER OTHER PRN (08:00)
[2016-09-15 08:03] VITALS: BP 129/82; PULSE 100; RESP 18; O2SAT 98
--- NOTE | 2016-09-15 09:38 | HHI.HP ---
HPI Service CP Hospitalists Primary Care Physician No Primary Care Physician Admission Diagnosis GI bleed Chief Complaint: blood stool Travel History International Travel<30 Days: No Contact w/Intl Traveler <30 Da: No Traveled to Known Affected Are: No History of Present Illness Pt is 66 yo with cad and pad who developed right bottom molar toothache 4 days ago. His dentist advised extraction of 2 bottom molars for decay in past. he flossed on Wednesday then developed severe intractable pain. He began taking asa 650mg q2hr x 3 days , he took ibuprofen x 10 pills, advil pm x 6 pills and also ultram and his usual plavix and pletal. he usually takes 3 or4 4 shots whiskey per day but none over past 3 days. this AM he awoke in sweat with epigastric discomfort. He jumped up from bed and nearly passed out but caught himsel and no loc. witness vomting of bright red blood into toilet. We admitted him yesterday for egd/colon and he left AMA last night.; He went home and passed melena and came back. Review of Systems Other vomited blood bloody stool Past Family Social History Past Medical History cad, cabg x 3, redo cabg x 1 with mitral valve repair Left CEA bilateral lower ext stenting for pad htn ulcerative colitis hyperlipidemia Reported Medications Reported Meds & Active Scripts Active Protonix (Pantoprazole Sodium) 40 Mg Tab 40 Mg PO BID Reported Cilostazol 50 Mg Tab 50 Mg PO BID Multi Vitamin (Multiple Vitamin) 1 Tab Tab 1 Tab PO DAILY Metoprolol Tartrate 25 Mg Tab 12.5 Mg PO BID Asacol HD (Mesalamine) 800 Mg Tab 800 Mg PO BID Swallow whole. Take on an empty stomach. Lovastatin 40 Mg Tab 80 Mg PO HS Lisinopril 20 Mg Tab 20 Mg PO BID Plavix (Clopidogrel Bisulfate) 75 Mg Tab 75 Mg PO DAILY Canasa Supp (Mesalamine) 1,000 Mg Supp 1,000 Mg [place] HS Aspirin 325 Mg Tab 325 Mg PO DAILY Allergies: Coded Allergies: MRI PRECAUTION (Verified Allergy, Severe, PACEMAKER LEAD PER DR MARTINEZ - 08/01/2010 KMD, 09/15/16) Nitrates (Verified Allergy, Severe, Hypotension, 09/15/16) Family History nc Social History tob 1ppd x 40yrs quit x 8yrs 3 or 4 shots whiskey per day Physical Exam Vital Signs heent neg heart reg lung cta abd s/nt ext no edema Vital Signs Date Time Temp Pulse Resp B/P Pulse Ox O2 Delivery O2 Flow Rate FiO2 09/15/16 08:03 100 18 129/82 98 Room Air 09/15/16 01:10 98.5 111 18 140/90 96 Room Air Laboratory Laboratory Tests Test 09/15/16 09/15/16 06:18 06:21 White Blood Count 7.9 Red Blood Count 3.58 Hemoglobin 10.9 Hematocrit 31.9 Mean Corpuscular Volume 89.1 Mean Corpuscular Hemoglobin 30.5 Mean Corpuscular Hemoglobin 34.2 Concent Red Cell Distribution Width 12.8 Platelet Count 232 Mean Platelet Volume 8.7 Neutrophils (%) (Auto) 73.5 Lymphocytes (%) (Auto) 16.9 Monocytes (%) (Auto) 8.7 Eosinophils (%) (Auto) 0.5 Basophils (%) (Auto) 0.4 Neutrophils # (Auto) 5.8 Lymphocytes # (Auto) 1.3 Monocytes # (Auto) 0.7 Eosinophils # (Auto) 0.0 Basophils # (Auto) 0.0 CBC Comment DIFF FINAL Differential Comment Sodium Level 140 Potassium Level 3.8 Chloride Level 106 Carbon Dioxide Level 25.0 Anion Gap 9 Blood Urea Nitrogen 28 Creatinine 1.04 Estimat Glomerular Filtration 72 Rate Random Glucose 109 Calcium Level 8.4 Blood Type A POSITIVE Antibody Screen NEGATIVE Result Diagram: 09/15/1661709/15/16617 Assessment and Plan Problem List: (1) Hematemesis Status: Acute Plan: Pt is 66 yo with cad and pad who developed right bottom molar toothache 4 days ago. His dentist advised extraction of 2 bottom molars for decay in past. he flossed on Wednesday then developed severe intractable pain. He began taking asa 650mg q2hr x 3 days , he took ibuprofen x 10 pills, advil pm x 6 pills and also ultram and his usual plavix and pletal. he usually takes 3 or4 4 shots whiskey per day but none over past 3 days. this AM he awoke in sweat with epigastric discomfort. He jumped up from bed and nearly passed out but caught himself and no loc. witness vomting of bright red blood into toilet. He was admitted for egd/colon then left AMA last night. He went home and apparently started passing melena then returned -concern would be development of erosions or ulcers in upper gi tract from overuse of nsaids and antiplts -Reconsult GI -hold nsaids -ppi -recheck hgb -npo -dvt prophyaxis. (2) Drug side effects Status: Acute Plan: see above (3) Near syncope Status: Acute Plan: see above (4) Blood loss anemia Status: Acute Plan: see above (5) Hypertension Status: Chronic Plan: hold elbert (6) IBD (inflammatory bowel disease) Status: Chronic Plan: ulcerative colitis. hold asacol today (7) PAD (peripheral artery disease) Status: Chronic Physician Certification 2 Midnight Certification Type: Admission for Inpatient Services Order for Inpatient Services 2The services are ordered in accordance with Medicare regulations or non- Medicare payer requirements, as applicable. In the case of services not specified as inpatient-only, they are appropriately provided as inpatient services in accordance with the 2-midnight benchmark. Estimated LOS (days): 2 2 days is the estimated time the patient will need to remain in the hospital, assuming treatment plan goals are met and no additional complications. Post-Hospital Plan: Home Tyrell Willams MD Sep 15, 2016 09:38 Microscopic Urinalysis Comment CULT NOT INDICATED Physical Exam Vital Signs heent neg heart reg lung cta abd s/nt ext no edema Vital Signs Date Time Temp Pulse Resp B/P Pulse Ox O2 Delivery O2 Flow Rate FiO2 09/15/16 08:03 100 18 129/82 98 Room Air 09/15/16 01:10 98.5 111 18 140/90 96 Room Air Laboratory Laboratory Tests Test 09/15/16 09/15/16 06:18 06:21 White Blood Count 7.9 Red Blood Count 3.58 Hemoglobin 10.9 Hematocrit 31.9 Mean Corpuscular Volume 89.1 Mean Corpuscular Hemoglobin 30.5 Mean Corpuscular Hemoglobin 34.2 Concent Red Cell Distribution Width 12.8 Platelet Count 232 Mean Platelet Volume 8.7 Neutrophils (%) (Auto) 73.5 Lymphocytes (%) (Auto) 16.9 Monocytes (%) (Auto) 8.7 Eosinophils (%) (Auto) 0.5 Basophils (%) (Auto) 0.4 Neutrophils # (Auto) 5.8 Lymphocytes # (Auto) 1.3 Monocytes # (Auto) 0.7 Eosinophils # (Auto) 0.0 Basophils # (Auto) 0.0 CBC Comment DIFF FINAL Differential Comment Sodium Level 140 Potassium Level 3.8 Chloride Level 106 Carbon Dioxide Level 25.0 Anion Gap 9 Blood Urea Nitrogen 28 Creatinine 1.04 Estimat Glomerular Filtration 72 Rate Random Glucose 109 Calcium Level 8.4 Blood Type A POSITIVE Antibody Screen NEGATIVE Result Diagram: 09/15/1661709/15/16617 Assessment and Plan Problem List: (1) Hematemesis Status: Acute Plan: Pt is 66 yo with cad and pad who developed right bottom molar toothache 4 days ago. His dentist advised extraction of 2 bottom molars for decay in past. he flossed on Wednesday then developed severe intractable pain. He began taking asa 650mg q2hr x 3 days , he took ibuprofen x 10 pills, advil pm x 6 pills and also ultram and his usual plavix and pletal. he usually takes 3 or4 4 shots whiskey per day but none over past 3 days. this AM he awoke in sweat with epigastric discomfort. He jumped up from bed and nearly passed out but caught himself and no loc. witness vomting of bright red blood into toilet. He was admitted for egd/colon then left AMA last night. He went home and apparently started passing melena then returned -concern would be development of erosions or ulcers in upper gi tract from overuse of nsaids and antiplts -Reconsult GI -hold nsaids -ppi -recheck hgb -npo -dvt prophyaxis. (2) Drug side effects Status: Acute Plan: see above (3) Near syncope Status: Acute Plan: see above (4) Blood loss anemia Status: Acute Plan: see above (5) Hypertension Status: Chronic Plan: hold elbert (6) IBD (inflammatory bowel disease) Status: Chronic Plan: ulcerative colitis. hold asacol today (7) PAD (peripheral artery disease) Status: Chronic Physician Certification 2 Midnight Certification Type: Admission for Inpatient Services Order for Inpatient Services 2The services are ordered in accordance with Medicare regulations or non- Medicare payer requirements, as applicable. In the case of services not specified as inpatient-only, they are appropriately provided as inpatient services in accordance with the 2-midnight benchmark. Estimated LOS (days): 2 2 days is the estimated time the patient will need to remain in the hospital, assuming treatment plan goals are met and no additional complications. Post-Hospital Plan: Home Tyrell Willams MD Sep 15, 2016 09:38
[2016-09-15 09:41] VITALS: BP 139/86; PULSE 98; RESP 16; O2SAT 95
[2016-09-15] MEDS: METOPROLOL TARTRATE 25 MG TAB PO SCH ×2 (09:41→22:39)
[2016-09-15] MEDS: SODIUM CHLOR 0.9% 1000 ML INJ 1,000 ML IV SCH ×2 (09:41→22:42)
--- NOTE | 2016-09-15 10:28 | HHI.GIFU ---
Subjective Remarks Patient came in yesterday after an episode of hematemesis with bright red blood after taking aspirin 650 mg by mouth every 2 hours 3 days, along with 10 ibuprofen, and 6 ibuprofen p.m. He also has a history of ulcerative colitis for which she is on mesalamine. It was recommended that he undergo evaluation with an EGD and colonoscopy, but the patient left AMA prior to this being scheduled last night. He reports that he felt fine when he arrived home that shortly after had an episode of hematochezia consisting of red blood mixed within his stool and he became alarmed and returned to the ER. He reports that he had 2 more episodes overnight but has not had any this morning. She is now agreeable to stay and proceed with an EGD colonoscopy in a.m. (Airam Roche) Objective Vitals I&O Vital Signs Date Time Temp Pulse Resp B/P Pulse Ox O2 Delivery O2 Flow Rate FiO2 09/15/16 09:41 98 16 139/86 95 Room Air 09/15/16 08:03 100 18 129/82 98 Room Air 09/15/16 01:10 98.5 111 18 140/90 96 Room Air Laboratory Laboratory Tests Test 09/15/16 09/15/16 06:18 06:21 White Blood Count 7.9 Red Blood Count 3.58 Hemoglobin 10.9 Hematocrit 31.9 Mean Corpuscular Volume 89.1 Mean Corpuscular Hemoglobin 30.5 Mean Corpuscular Hemoglobin 34.2 Concent Red Cell Distribution Width 12.8 Platelet Count 232 Mean Platelet Volume 8.7 Neutrophils (%) (Auto) 73.5 Lymphocytes (%) (Auto) 16.9 Monocytes (%) (Auto) 8.7 Eosinophils (%) (Auto) 0.5 Basophils (%) (Auto) 0.4 Neutrophils # (Auto) 5.8 Lymphocytes # (Auto) 1.3 Monocytes # (Auto) 0.7 Eosinophils # (Auto) 0.0 Basophils # (Auto) 0.0 CBC Comment DIFF FINAL Differential Comment Sodium Level 140 Potassium Level 3.8 Chloride Level 106 Carbon Dioxide Level 25.0 Anion Gap 9 Blood Urea Nitrogen 28 Creatinine 1.04 Estimat Glomerular Filtration 72 Rate Random Glucose 109 Calcium Level 8.4 Blood Type A POSITIVE Antibody Screen NEGATIVE Physical Exam HEENT: Normocephalic; atraumatic; no jaundice. NECK: Neck is supple, no JVD, no lymphadenopathy. CHEST: CTA CARDIAC: RRR ABDOMEN: Soft, nondistended, nontender; no hepatosplenomegaly; bowel sounds are present in all four quadrants. EXTREMITIES: No clubbing, cyanosis, or edema. SKIN: Normal; no rash; no jaundice. SCOOPER: No focal deficits; alert and oriented times three. (Airam Roche) Assessment and Plan Plan Assessment: - GIB with hematemesis and hematochezia in patient with underlying ulcerative colitis who recently took ASA 650mg po q2h x 3 days along with 10 ibuprofen, and 6 ibuprofen p.m. He also has a history of ulcerative colitis for which she is on mesalamine. It was recommended that he undergo evaluation with an EGD and colonoscopy, but the patient left AMA prior to this being scheduled last night. He reports that after he arrived home, he had 2 more episodes overnight but has not had any this morning. He is now agreeable to stay and proceed with an EGD colonoscopy in a.m. HH is stable .. - Anemia secondary to acute blood loss. H&H .. No active bleeding at this time - Ulcerative colitis. Diagnosed in June 2016. Followed by Dr. Clayton. He was taking mesalamine and Canasa suppositories for this but states that he was feeling well and therefore stopped taking the suppositories the months ago and has not had any further diarrhea or rectal bleeding up until last night. - Coronary artery disease, hypertension, hyperlipidemia per primary PLAN: - Plan for EGD/colonoscopy in a.m. - Obtain consent - Clear liquid - Nothing by mouth after midnight - GoLYTELY prep - Mesalamine - Monitor labs - Notify GI of active bleeding - Supportive care - Further recommendations to follow based on results of above - Patient seen and examined by Dr. Montaño and myself and this note is written on his behalf (Airam Roche) Physician Comments Patient seen and examined Agree with above Continue with current supportive care Monitor labs Plan for EGD and colonoscopy tomorrow (Bry Montaño MD) Airam Roche Sep 15, 2016 10:28 Bry Montaño MD Sep 15, 2016 22:12
[2016-09-15 12:07] VITALS: BP 112/65; PULSE 77; RESP 20; O2SAT 99
[2016-09-15] MEDS ORDERED: PEG (High)/E-LYTE SOLN 4000 ML BTL PO ONE (16:00)
[2016-09-15 17:05] VITALS: BP 131/79; PULSE 82; RESP 18; O2SAT 98
[2016-09-15 21:30] VITALS: BP 142/77; PULSE 89; RESP 18; TEMP 98.2; O2SAT 100
[2016-09-15] MEDS: MESALAMINE HD 800 MG DELAYED RELEASE TAB PO SCH (23:08)
[2016-09-16] VITALS: BP 146/70; PULSE 79; RESP 17; TEMP 96.2; O2SAT 98
[2016-09-16] MEDS ORDERED: TEMAZEPAM 15 MG CAP PO PRN ×2 (00:15)
[2016-09-16] MEDS: PANTOPRAZOLE INJ 80 MG in SODIUM CHLORIDE 0.9% INJ 100 ML IV SCH (00:19)
[2016-09-16 04:52] LABS: AUTOMATED NEUTROPHIL # 2.7 TH/MM3 (1.8-7.7); BASOPHIL % 0.6 % (0.0-2.0); EOSINOPHIL # 0.2 TH/MM3 (0-0.4); EOSINOPHIL % 2.8 % (0.0-4.0); HEMATOCRIT 26.1 % (39.0-51.0); HEMO FLAGS DIFF FINAL; MEAN CELL VOLUME 90.4 FL (80.0-100.0); MEAN CORPUSCULAR HEMOGLOBIN 31.4 PG (27.0-34.0); MEAN CORPUSCULAR HGB CONC 34.7 % (32.0-36.0); MONO % 11.7 % (0.0-8.0); NEUT % 48.9 % (16.0-70.0); PLATELET COUNT 189 TH/MM3 (150-450); RED BLOOD COUNT 2.89 MIL/MM3 (4.50-5.90); WHITE BLOOD COUNT 5.5 TH/MM3 (4.0-11.0)
[2016-09-16] MEDS ORDERED: LACTATED RINGER'S 1000 ML IV SCH (05:00)
[2016-09-16 05:29] LABS: APTT (PATIENT) 26.3 SEC (24.3-30.1)
[2016-09-16 08:00] VITALS: BP 151/76; PULSE 79; RESP 18; TEMP 96.7; O2SAT 98
[2016-09-16] MEDS: MESALAMINE HD 800 MG DELAYED RELEASE TAB PO SCH (09:03)
[2016-09-16] MEDS: METOPROLOL TARTRATE 25 MG TAB PO SCH (09:03)
[2016-09-16 12:00] VITALS: BP 148/82; PULSE 76; RESP 18; TEMP 98.7; O2SAT 98
--- NOTE | 2016-09-16 12:27 | HHI.PR ---
Subjective Remarks no bleeding overnight no abdomen pain Objective Vitals heent neg heart reg lung cta abd s/nt ext no edema Vital Signs Date Time Temp Pulse Resp B/P Pulse Ox O2 Delivery O2 Flow Rate FiO2 09/16/16 08:00 96.7 79 18 151/76 98 09/16/16 00:00 96.2 79 17 146/70 98 09/15/16 21:30 98.2 89 18 142/77 100 09/15/16 17:05 82 18 131/79 98 Room Air 09/15/16 09/15/16 09/16/16 15:00 23:00 07:00 Intake Total 495 ml 766 ml Output Total 300 ml 400 ml Balance 195 ml 366 ml Intake Oral 240 ml 240 ml IV Total 255 ml 526 ml Output Urine Total 300 ml 400 ml Result Diagram: 09/16/16 0410 09/15/16 0618 A/P Problem List: (1) Hematemesis Status: Acute Plan: Pt is 66 yo with cad and pad who developed right bottom molar toothache 4 days ago. His dentist advised extraction of 2 bottom molars for decay in past. he flossed on Wednesday then developed severe intractable pain. He began taking asa 650mg q2hr x 3 days , he took ibuprofen x 10 pills, advil pm x 6 pills and also ultram and his usual plavix and pletal. he usually takes 3 or4 4 shots whiskey per day but none over past 3 days. this AM he awoke in sweat with epigastric discomfort. He jumped up from bed and nearly passed out but caught himself and no loc. witness vomting of bright red blood into toilet. He was admitted for egd/colon then left AMA . He went home and apparently started passing melena then returned -concern would be development of erosions or ulcers in upper gi tract from overuse of nsaids and antiplts -egd/colon today..if clear for d/c the send home -hold nsaids -ppi -npo -dvt prophyaxis. will discuss with GI about asa/plavix for cad/pad after egd (2) Drug side effects Status: Acute Plan: see above (3) Near syncope Status: Acute Plan: see above (4) Blood loss anemia Status: Acute Plan: see above (5) Hypertension Status: Chronic Plan: hold elbert (6) IBD (inflammatory bowel disease) Status: Chronic Plan: ulcerative colitis. hold asacol today (7) PAD (peripheral artery disease) Status: Chronic Tyrell Willams MD Sep 16, 2016 12:27
[2016-09-16 13:30] VITALS: BP 148/72; PULSE 76; RESP 20; TEMP 98.7; O2SAT 98
[2016-09-16] MEDS ORDERED: LACTATED RINGER'S 1,000 ML BAG IV ONE (15:10)
[2016-09-16] MEDS ORDERED: PROPOFOL 200 MG/20 ML AMP IV ONE (15:10)
--- NOTE | 2016-09-16 15:33 | PD.PROCEDR ---
GI Procedure REFERRING PHYSICIAN Dr. Willams PROCEDURE PERFORMED EGD with biopsy INDICATION FOR PROCEDURE GI bleed PROCEDURE: The procedure, risks and benefits were discussed with Mr. Smith and informed consent was obtained. Anesthesia sedated him with Diprivan. He was placed in the left lateral decubitus position. EGD: The Pentax videoscope was introduced through the oropharynx and advanced to the second portion of the duodenum under direct visualization. Retroflexion was performed in the stomach. FINDINGS: The esophagus this was normal The stomach there was a medium size ulcer in the antrum clean-based no visible vessel edges slightly prominent this was biopsied otherwise gastric mucosa was unremarkable The duodenum this was normal Colonoscopy: The Pentax videoscope was introduced through the rectum and advanced to cecum where the ileocecal valve and appendiceal orifice were identified. Retroflexion was performed in the rectum. Colonic prep was good FINDINGS: Colonic withdrawal time greater than 6 minutes as the scope was slowly withdrawn colonic mucosa was carefully inspected the patient was noted to have a small polyp in the sigmoid region this was excised using cold snare technique and retrieved for further evaluation the patient was also found to have mild scattered diverticulosis retroflexion was unremarkable cells rectal examination and colonic mucosa was otherwise unremarkable ESTIMATED BLOOD LOSS: None SPECIMENS REMOVED: Gastric and colon COMPLICATIONS: None IMPRESSION: Gastric ulcer Colonic Polyp Diverticulosis PLAN: Await biopsy Avoid aspirin Okay for Plavix PPI Protonix 40 mg daily EGD in 2 months Colonoscopy in 3 years for history of ulcerative colitis and polyp Okay for discharge from a GI standpoint Heart healthy diet Follow-up with GI post discharge Bry Montaño MD Sep 16, 2016 15:33
[2016-09-16 15:41] VITALS: BP 133/77; PULSE 62; RESP 18; O2SAT 100
[2016-09-16] MEDS ORDERED: PROT40TA PO (16:09)
[2016-09-16] MEDS ORDERED: ASPI325T PO (16:09)
--- NOTE | 2016-09-16 16:10 | HHI.DCPOC ---
Discharge Care Plan Diagnosis: (1) Gastric ulcer (2) Hematemesis (3) Blood loss anemia (4) Drug side effects (5) IBD (inflammatory bowel disease) Goals to Promote Your Health * To prevent worsening of your condition and complications * To maintain your health at the optimal level Directions to Meet Your Goals Take your medications as prescribed Follow your dietary instruction Follow activity as directed Keep your appointments as scheduled Take your immunizations and boosters as scheduled If your symptoms worsen call your PCP, if no PCP go to Urgent Care Center or Emergency Room Smoking is Dangerous to Your Health. Avoid second hand smoke Call the 24-hour hour crisis hotline for domestic abuse at Tyrell Willams MD Sep 16, 2016 16:10
[2016-09-16] MEDS ORDERED: MIDAZOLAM HCL 2 MG/2 ML VIAL ONE (17:03)
== END 2016-09-16 18:21 | disposition home or self-care (01) | DRG 378 ==
LOC: NEPE 01:07 → NEDA 07:17 → N07B 21:10
PROVIDERS: ADMIT Hospitalist; ATTEND Hospitalist
PROC: 0DBN8ZZ Excision of Sigmoid Colon, Via Natural or Artificial Opening Endoscopic (ICD-10-PCS; principal; 2016-09-16 14:25)
PROC: 0DB68ZX Excision of Stomach, Via Natural or Artificial Opening Endoscopic, Diagnostic (ICD-10-PCS; 2016-09-16 14:25)
DX: K92.1 Melena (principal); D62 Acute posthemorrhagic anemia; K51.90 Ulcerative colitis, unspecified, without complications; K25.9 Gastric ulcer, unspecified as acute or chronic, without hemorrhage or perforation; I10 Essential (primary) hypertension; I25.10 Atherosclerotic heart disease of native coronary artery without angina pectoris; I25.2 Old myocardial infarction; K21.9 Gastro-esophageal reflux disease without esophagitis; I73.9 Peripheral vascular disease, unspecified; K02.9 Dental caries, unspecified; E78.5 Hyperlipidemia, unspecified; D12.5 Benign neoplasm of sigmoid colon; K57.30 Diverticulosis of large intestine without perforation or abscess without bleeding; F12.90 Cannabis use, unspecified, uncomplicated; Z86.73 Personal history of transient ischemic attack (TIA), and cerebral infarction without residual deficits; Z87.891 Personal history of nicotine dependence; Z95.1 Presence of aortocoronary bypass graft; Z95.5 Presence of coronary angioplasty implant and graft
CPT/HCPCS: 80048; 85025; 85730; 86850; 86900; 86901; 88305; 88312; 99285; C9113; J2250; J7030; J7120

== ENCOUNTER 2016-10-31 08:59 | Inpatient (IN) | payer MEDICARE ==
[2016-10-31] VITALS (8 sets, daily range): BP systolic 94–205; BP diastolic 51–97; PULSE 76–138; RESP 18–28; TEMP 98.5–101.1; O2SAT 94–96
[~2016-10-31] VITALS: Ht 177.8 cm; Wt 79.0 kg
[2016-10-31] MEDS ORDERED: SODIUM CHLOR 0.9% 1000 ML INJ 1,000 ML IV SCH (09:16)
[2016-10-31] MEDS ORDERED: MORPHINE SULFATE 4 MG/ML INJ IV PUSH ONE ×2 (09:30→12:15)
[2016-10-31] MEDS ORDERED: ACETAMINOPHEN 325 MG TAB PO ONE (09:30)
[2016-10-31] MEDS ORDERED: SODIUM CHLORIDE 0.9% FLUSH 5 ML FLUSH IVF PRN ×2 (09:30→15:15)
[2016-10-31] MEDS ORDERED: ONDANSETRON HCL 4 MG/2 ML VIAL IVP ONE (09:30)
--- NOTE | 2016-10-31 09:34 | PD ---
HPI Chief Complaint: GI Complaint Time Seen by Provider: 09:10 Travel History International Travel<30 days: No Contact w/Intl Traveler<30days: No Traveled to known affect area: No History of Present Illness HPI Patient is a 66-year-old male who comes in complaining of fever, weakness, low back pain, constipation. He says he has a history of ulcerative colitis and is on immune modulators for it. He says for the past for 5 days been feeling very weak. He reports no bowel movement in the past 5 days. He says his back is hurting, mostly the lower back. He went to an urgent care yesterday and they gave him some MiraLAX and told him to increase his water intake. He says he still has not had a bowel movement and is feeling worse. He denies chest pain or shortness of breath. He has not had any vomiting. He denies any urinary symptoms. PFSH Past Medical History Hx Anticoagulant Therapy: Yes (ASA) Arthritis: No Asthma: No Autoimmune Disease: No Blood Disorders: No Anxiety: No Depression: No Heart Rhythm Problems: No Cancer: No Cardiac Catheterization: Yes (2009) Cardiovascular Problems: Yes (HTN, OPEN HEART SURGERY) High Cholesterol: Yes Chemotherapy: No Chest Pain: No Congestive Heart Failure: No COPD: No Cerebrovascular Accident: Yes (TIA 2010) Coronary Artery Disease: Yes Diabetes: No Endocrine: No Gastrointestinal Disorders: Yes GERD: Yes Genitourinary: No Headaches: No Hiatal Hernia: No Hypertension: Yes Immune Disorder: No Implanted Vascular Access Dvce: No Kidney Stones: No Musculoskeletal: No Neurologic: Yes Psychiatric: No Reproductive: No Respiratory: No Migraines: No Myocardial Infarction: Yes (X2) Radiation Therapy: No Renal Failure: No Seizures: No Sleep Apnea: No Thyroid Disease: No Ulcer: No Past Surgical History Abdominal Surgery: No AICD: Yes Arteriovenous Shunt: No Cardiac Surgery: Yes (left carotid endarterectomy in April 2011) Coronary Artery Bypass Graft: Yes (3 VESSEL 2001, 1 vessle and valve 2009) Coronary Stent: Yes Ear Surgery: No Endocrine Surgery: No Eye Surgery: No Genitourinary Surgery: No Gynecologic Surgery: No Insulin Pump: No Joint Replacement: No Oral Surgery: No Pacemaker: Yes (wire but no pacer per pt) Thoracic Surgery: No Other Surgery: Yes (TRIPLE BYPASS IN 2001, SINGLE BYPASS IN 2009) Social History Alcohol Use: Yes (daily 4 SHOTS OF WISKEY ) Tobacco Use: No (QUIT ) Substance Use: Yes (cannabis, everyday wednesday) Allergies-Medications (Allergen,Severity, Reaction): Coded Allergies: MRI PRECAUTION (Verified Allergy, Severe, PACEMAKER LEAD PER DR MARTINEZ - 08/01/2010 KMD, 10/31/16) Nitrates (Verified Allergy, Severe, Hypotension, 10/31/16) Reported Meds & Prescriptions Reported Meds & Active Scripts Active Protonix (Pantoprazole Sodium) 40 Mg Tab 40 Mg PO BID Reported Cilostazol 50 Mg Tab 50 Mg PO BID Multi Vitamin (Multiple Vitamin) 1 Tab Tab 1 Tab PO DAILY Metoprolol Tartrate 25 Mg Tab 12.5 Mg PO BID Asacol HD (Mesalamine) 800 Mg Tab 800 Mg PO BID Swallow whole. Take on an empty stomach. Lovastatin 40 Mg Tab 80 Mg PO HS Lisinopril 20 Mg Tab 20 Mg PO BID Plavix (Clopidogrel Bisulfate) 75 Mg Tab 75 Mg PO DAILY Canasa Supp (Mesalamine) 1,000 Mg Supp 1,000 Mg ND HS Review of Systems Except as stated in HPI: all other systems reviewed are Neg General / Constitutional: Positive: Fever, Chills HENT: Positive: Headaches Cardiovascular: No: Chest Pain or Discomfort Respiratory: No: Shortness of Breath Gastrointestinal: Positive: Abdominal Pain, Constipation, No: Nausea, Vomiting , Hematemesis, Hematochezia Genitourinary: No: Dysuria Musculoskeletal: Positive: Weakness Skin: No Rash, No Change in Pigmentation Physical Exam Narrative GENERAL: Awake and alert, in no acute distress. SKIN: Warm and dry. HEAD: Atraumatic. Normocephalic. EYES: Pupils equal and round. No scleral icterus. ENT: Mucous membranes pink and moist. NECK: Trachea midline. No JVD. CARDIOVASCULAR: Regular rate and rhythm. No murmur appreciated. RESPIRATORY: No accessory muscle use. Clear to auscultation. Breath sounds equal bilaterally. GASTROINTESTINAL: Abdomen soft, non-tender, nondistended. No CVA tenderness. MUSCULOSKELETAL: No obvious deformities. No clubbing. No cyanosis. No edema. NEUROLOGICAL: Awake and alert. No obvious cranial nerve deficits. Motor grossly within normal limits. Normal speech. PSYCHIATRIC: Appropriate mood and affect; insight and judgment normal. Data Data Last Documented VS Vital Signs Date Time Temp Pulse Resp B/P Pulse Ox O2 Delivery O2 Flow Rate FiO2 10/31/16 12:37 99 20 94/51 95 Nasal Cannula 2 10/31/16 09:02 101.1 Orders Basic Metabolic Panel (Bmp) (10/31/16 09:16) Complete Blood Count With Diff (10/31/16 09:16) Lipase (10/31/16 09:16) Lactic Acid (10/31/16 09:16) Prothrombin Time / Inr (Pt) (10/31/16 09:16) Act Partial Throm Time (Ptt) (10/31/16 09:16) Urinalysis - C+S If Indicated (10/31/16 09:16) Ua Includes Microscopic (10/31/16 09:16) Ct Abd/Pel W Iv Contrast(Rout) (10/31/16 09:16) Iv Access Insert/Monitor (10/31/16 09:16) Ecg Monitoring (10/31/16 09:16) Oximetry (10/31/16 09:16) Morphine Inj (Morphine Inj) (10/31/16 09:30) Ondansetron Inj (Zofran Inj) (10/31/16 09:30) Sodium Chlor 0.9% 1000 Ml Inj (Ns 1000 M (10/31/16 09:16) Sodium Chloride 0.9% Flush (Ns Flush) (10/31/16 09:30) Hepatic Functional Panel (10/31/16 09:16) Acetaminophen (Tylenol) (10/31/16 09:30) Chest, Pa & Lat (10/31/16 ) Sodium Chlor 0.9% 1000 Ml Inj (Ns 1000 M (10/31/16 10:45) Iohexol 350 Inj (Omnipaque 350 Inj) (10/31/16 11:38) Morphine Inj (Morphine Inj) (10/31/16 12:15) Blood Culture (10/31/16 12:30) Piperacil-Tazo 3.375 Gm Premix (Zosyn 3. (10/31/16 12:30) Type And Screen (10/31/16 12:37) Vancomycin Inj (Vancomycin Inj) (10/31/16 13:15) Sodium Chlor 0.9% 1000 Ml Inj (Ns 1000 M (10/31/16 13:45) Admit Order (Ed Use Only) (10/31/16 ) Troponin I (10/31/16 09:30) Labs Laboratory Tests Test 10/31/16 10/31/16 09:30 12:45 White Blood Count 4.1 TH/MM3 Red Blood Count 3.83 MIL/MM3 Hemoglobin 10.3 GM/DL Hematocrit 31.6 % Mean Corpuscular Volume 82.3 FL Mean Corpuscular Hemoglobin 26.9 PG Mean Corpuscular Hemoglobin 32.7 % Concent Red Cell Distribution Width 15.6 % Platelet Count 229 TH/MM3 Mean Platelet Volume 8.4 FL Neutrophils (%) (Auto) 92.5 % Lymphocytes (%) (Auto) 6.1 % Monocytes (%) (Auto) 1.2 % Eosinophils (%) (Auto) 0.1 % Basophils (%) (Auto) 0.1 % Neutrophils # (Auto) 3.8 TH/MM3 Lymphocytes # (Auto) 0.2 TH/MM3 Monocytes # (Auto) 0.0 TH/MM3 Eosinophils # (Auto) 0.0 TH/MM3 Basophils # (Auto) 0.0 TH/MM3 CBC Comment DIFF FINAL Differential Comment Prothrombin Time 11.3 SEC Prothromb Time International 1.0 RATIO Ratio Activated Partial 26.1 SEC Thromboplast Time Urine Color YELLOW Urine Turbidity CLEAR Urine pH 6.0 Urine Specific [place] 1.021 Urine Protein 30 mg/dL Urine Glucose (UA) TRACE mg/dL Urine Ketones TRACE mg/dL Urine Occult Blood NEG Urine Nitrite NEG Urine Bilirubin NEG Urine Urobilinogen LESS THAN 2.0 MG/DL Urine Leukocyte Esterase NEG Urine RBC LESS THAN 1 /hpf Urine WBC 1 /hpf Urine Bacteria RARE /hpf Urine Hyaline Casts 2 /lpf Urine Mucus FEW /lpf Microscopic Urinalysis Comment CULT NOT INDICATED Sodium Level 131 MEQ/L Potassium Level 3.8 MEQ/L Chloride Level 94 MEQ/L Carbon Dioxide Level 22.7 MEQ/L Anion Gap 14 MEQ/L Blood Urea Nitrogen 12 MG/DL Creatinine 1.41 MG/DL Estimat Glomerular Filtration 50 ML/MIN Rate Random Glucose 192 MG/DL Lactic Acid Level 5.4 mmol/L Calcium Level 8.5 MG/DL Total Bilirubin 0.8 MG/DL Direct Bilirubin 0.3 MG/DL Indirect Bilirubin 0.5 MG/DL Aspartate Amino Transf 13 U/L (AST/SGOT) Alanine Aminotransferase 22 U/L (ALT/SGPT) Alkaline Phosphatase 62 U/L Troponin I LESS THAN 0.02 NG/ML Total Protein 7.3 GM/DL Albumin 3.2 GM/DL Lipase 73 U/L Blood Type A POSITIVE Antibody Screen NEGATIVE MDM Medical Decision Making Medical Screen Exam Complete: Yes Emergency Medical Condition: Yes Medical Record Reviewed: Yes Differential Diagnosis Colitis versus diverticulitis versus ulcerative colitis flare versus sepsis Narrative Course Patient is a 66-year-old male who comes in complaining of feeling unwell with back pain and lower abdominal pain. Patient is febrile on arrival. IV established, patient given IV fluids and Tylenol. Labs sent. Given morphine for pain. Lactic acid is elevated to 5.4. CT abdomen and pelvis shows a periaortitis. Patient given Zosyn and vancomycin for broad coverage. Dr. Schwartz consulted for vascular surgery, he will follow the patient. Suggests no surgical management at this time. Patient became hypotensive. He was given 4 L of IV fluid total. He was admitted to the ICU and started on the bed. Critical Care Narrative Aggregate critical care time was 35 minutes. Time to perform other separately billable procedures was not included in the critical care time. My time did not include minutes spent treating any other patients simultaneously or on activities that did not directly contribute to the patient's treatment. The services I provided to this patient were to treat and/or prevent clinically significant deterioration that could result in: Serious illness or I provided critical care services requiring my management, as noted below: Chart data review, documentation time, medication orders and management, vital sign assessments/reviewing monitor data, ordering and reviewing lab tests, ordering and interpreting/reviewing x-rays and diagnostic studies, care of the patient and discussion of the patient with the admitting physicians. Diagnosis Primary Impression: Severe sepsis Additional Impression: Aortitis Admitting Information Admitting Physician Requests: Admit Haylee Kuhn MD Oct 31, 2016 09:34
[2016-10-31 09:51] LABS: AUTOMATED NEUTROPHIL # 3.8 TH/MM3 (1.8-7.7); BASOPHIL % 0.1 % (0.0-2.0); EOSINOPHIL % 0.1 % (0.0-4.0); HEMATOCRIT 31.6 % (39.0-51.0); HEMO FLAGS DIFF FINAL; LYMPH % 6.1 % (9.0-44.0); LYMPHOCYTE # 0.2 TH/MM3 (1.0-4.8); MEAN CELL VOLUME 82.3 FL (80.0-100.0); MEAN CORPUSCULAR HEMOGLOBIN 26.9 PG (27.0-34.0); MEAN CORPUSCULAR HGB CONC 32.7 % (32.0-36.0); MONO % 1.2 % (0.0-8.0); NEUT % 92.5 % (16.0-70.0); PLATELET COUNT 229 TH/MM3 (150-450); RED BLOOD COUNT 3.83 MIL/MM3 (4.50-5.90); RED CELL DISTRIBUTION WIDTH 15.6 % (11.6-17.2); WHITE BLOOD COUNT 4.1 TH/MM3 (4.0-11.0)
[2016-10-31 09:56] LABS: BACTERIA, URINE RARE /hpf; BLOOD, URINE NEG (NEG); COMMENT (UR) CULT NOT INDICATED; CULTURE IF INDICATED CULT NOT INDICATED; GLUCOSE,URINE TRACE mg/dL (NEG); HYALINE CAST, URINE 2 /lpf (RARE); KETONE, URINE TRACE mg/dL (NEG); MUCUS URINE FEW /lpf (OCC); NITRITE,URINE NEG (NEG); URINE COLOR YELLOW (YELLW/STRAW)
[2016-10-31 09:59] LABS: APTT (PATIENT) 26.1 SEC (24.3-30.1); PROTHROMBIN TIME - PATIENT 11.3 SEC (9.8-11.6)
[2016-10-31 10:19] LABS: ANION GAP 14 MEQ/L (5-15); AST (GOT) 13 U/L (15-37); BICARBONATE 22.7 MEQ/L (21.0-32.0); BLOOD UREA NITROGEN 12 MG/DL (7-18); CHLORIDE 94 MEQ/L (98-107); GLOMERULAR FILTRATION RATE 50 ML/MIN (>89); POTASSIUM 3.8 MEQ/L (3.5-5.1); SODIUM (NA) 131 MEQ/L (136-145)
[2016-10-31 10:22] LABS: ALKALINE PHOSPHATASE 62 U/L (45-117); ALT (GPT) 22 U/L (12-78); INDIRECT BILIRUBIN 0.5 MG/DL (0.0-0.8); TOTAL BILIRUBIN ADULT 0.8 MG/DL (0.2-1.0)
--- NOTE | 2016-10-31 10:44 | RADRPT ---
EXAM DATE/TIME: 10/31/2016 10:03 [facility] COMPARISON: No previous studies available for comparison. INDICATIONS : Fever starting today MEDICAL HISTORY : Myocardial infarction SURGICAL HISTORY : CABG. Coronary artery stent. ENCOUNTER: Initial ACUITY: 1 day PAIN SCORE: 0/10 LOCATION: Bilateral chest FINDINGS: AP and lateral views of the chest. Median sternotomy wires. Prosthetic cardiac valve. The lungs are c lear. Cardiomediastinal silhouette within normal limits. No evidence of pleural effusion or pneumotho rax. CONCLUSION: No acute cardiopulmonary disease identified. Damir Garcia MD on October 31, 2016 at 10:42 Board Certified Radiologist. This report was verified electronically.
[2016-10-31] MEDS ORDERED: SODIUM CHLOR 0.9% 1000 ML INJ 1,000 ML IV ONE ×5 (10:45→14:02)
[2016-10-31] MEDS ORDERED: IOHEXOL 350 MG/ML 10 ML VIAL (for RAD DIAG) IV ONE (11:38)
--- NOTE | 2016-10-31 12:17 | RADRPT ---
EXAM DATE/TIME: 10/31/2016 11:13 [facility] COMPARISON: CTA THORACIC ABDOMINAL AORTA W 3D RECON, September 14, 2016, 10:07. CT ABDOMEN & PELVIS W CONTRAST, Oc tober 2014, 17:43. INDICATIONS : Diffuse abdominal pain and cramping, constipation for 5 days. IV CONTRAST: 67 cc Omnipaque 350 (iohexol) IV ORAL CONTRAST: No oral contrast ingested. RADIATION DOSE: 9.96 CTDIvol (mGy) MEDICAL HISTORY : Gastroesophageal reflux disease. Ulcerative colitis. Hypertension.Cardiovascular disease. SURGICAL HISTORY : CABG Pacemaker. ENCOUNTER: Initial ACUITY: 4 - 6 days PAIN SCALE: 6/10 LOCATION: abdomen. TECHNIQUE: Volumetric scanning of the abdomen and pelvis was performed. Using automated exposure control and ad justment of the mA and/or kV according to patient size, radiation dose was kept as low as reasonably achievable to obtain optimal diagnostic quality images. FINDINGS: LOWER LUNGS: Mild atelectasis at the lung bases. LIVER: Homogeneous density without lesion. There is no dilation of the biliary tree. No calcified gallston es. SPLEEN: Normal size without lesion. PANCREAS: 2.6 cm duodenal diverticulum in the region of the pancreatic head. Pancreas otherwise within normal l imits. KIDNEYS: Normal in size and shape. There is no mass, stone or hydronephrosis. ADRENAL GLANDS: Within normal limits. VASCULAR: Diffuse arterial calcification. New hazy/stranding opacity is seen about the distal abdominal aorta. Aortic diameter within normal limits. There is a small amount of gas also seen within the calcified r ight-sided distal abdominal aortic wall. No associated ureteral dilatation is seen. BOWEL/MESENTERY: Scattered colonic diverticula. No evidence of acute diverticulitis. No bowel wall thickening identifi ed. No evidence of bowel dilatation. Likely appendix seen, within normal limits. ABDOMINAL WALL: Within normal limits. RETROPERITONEUM: Hazy/granular opacity about the distal abdominal aorta. BLADDER: No wall thickening or mass. REPRODUCTIVE: Prostate enlarged measuring 4.5 cm. Prostate calcifications noted. INGUINAL: There is no lymphadenopathy or hernia. MUSCULOSKELETAL: Within normal limits for patient age. CONCLUSION: 1. Inflammatory changes are seen about the distal abdominal aorta. There is prominent stranding/hazy opacity in the para-aortic fat. These findings are new when compared to the prior CTA of 09/14/2016. Fi ndings indicate periaortitis. Aortic diameter is within normal limits. There is a small amount of new gas within the aortic wall in this region. 2. Chronic colonic diverticula cyst. Damir Garcia MD on October 31, 2016 at 11:54 Board Certified Radiologist. This report was verified electronically.
[2016-10-31] MEDS ORDERED: PIPERACIL-TAZO 3.375 GM PREMIX 50 ML IV ONE (12:30)
[2016-10-31] MEDS ORDERED: VANCOMYCIN INJ 1,000 MG in SODIUM CHLOR 0.9% 250 ML INJ 250 ML IV ONE (12:30)
[2016-10-31] MEDS ORDERED: VANCOMYCIN 1,000 MG/NS 250 ML IV ONE ×4 (13:15→16:30)
[2016-10-31] MEDS ORDERED: SODIUM CHLOR 0.9% 1000 ML INJ 400 ML IV ONE (14:02)
[2016-10-31 14:10] LABS: HEMATOCRIT 26.6 % (39.0-51.0); MEAN CELL VOLUME 81.6 FL (80.0-100.0); MEAN CORPUSCULAR HEMOGLOBIN 26.8 PG (27.0-34.0); MEAN CORPUSCULAR HGB CONC 32.9 % (32.0-36.0); PLATELET COUNT 228 TH/MM3 (150-450); RED BLOOD COUNT 3.27 MIL/MM3 (4.50-5.90); RED CELL DISTRIBUTION WIDTH 15.4 % (11.6-17.2); WHITE BLOOD COUNT 15.6 TH/MM3 (4.0-11.0)
[2016-10-31 14:14] LABS: HEMO FLAGS AUTO DIFF
[2016-10-31] MEDS ORDERED: DEXTROSE 50% IN WATER 50 ML VIAL(D50) IV PUSH PRN (14:15)
[2016-10-31] MEDS ORDERED: TERBUTALINE INJ 1 MG/ML AMP SQ PRN (14:15)
[2016-10-31] MEDS ORDERED: ONDANSETRON HCL 4 MG/2 ML VIAL IV PRN (14:15)
[2016-10-31] MEDS ORDERED: ACETAMINOPHEN 325 MG TAB PO PRN (14:15)
[2016-10-31] MEDS ORDERED: SENNOSIDES 8.6 MG TAB PO PRN (14:15)
[2016-10-31] MEDS ORDERED: NOREPINEPHRINE-DEXTROSE DRIP 250 ML IV SCH (14:15)
[2016-10-31] MEDS ORDERED: GLUCAGON 1 MG/ML VIAL OTHER PRN (14:15)
[2016-10-31] MEDS ORDERED: MORPHINE SULFATE 4 MG/ML INJ IV PRN (14:15)
[2016-10-31] MEDS ORDERED: SODIUM CHLORIDE 0.9% FLUSH 5 ML FLUSH IV FLUSH PRN ×2 (14:15)
[2016-10-31] MEDS ORDERED: RESP: ALBUTEROL 2.5 MG/IPRATROPIUM 0.5 MG NEB (PRN) INH (14:15)
[2016-10-31] MEDS ORDERED: MISCELLANEOUS NURSING INFORMATION XX SCH (14:15)
[2016-10-31] MEDS ORDERED: CHLORHEXIDINE GLUCONATE 2 % 1 PACK (2 CLOTHS) TOP PRN (14:15)
[2016-10-31] MEDS ORDERED: NOREPINEPHRINE 4 MG/4 ML AMP ONE (14:18)
--- NOTE | 2016-10-31 14:24 | HHI.HP ---
[facility] Service Critical Care Medicine Primary Care Physician Galindo Garcia MD Admission Diagnosis Sepsis, periaortitis Diagnosis: (1) Aortitis Diagnosis: Principal (2) ETOHism Diagnosis: Principal (3) Hyperglyceridemia Diagnosis: Principal (4) Marijuana abuse Diagnosis: Principal (5) Tobacco use disorder Diagnosis: Principal (6) Alcohol abuse Diagnosis: Principal (7) CAD (coronary artery disease) Diagnosis: Principal (8) Sepsis Diagnosis: Principal (9) Hyperglycemia Diagnosis: Principal (10) Hyponatremia Diagnosis: Principal (11) Lactic acidosis Diagnosis: Principal (12) PAD (peripheral artery disease) Diagnosis: Principal (13) IBD (inflammatory bowel disease) Diagnosis: Principal Chief Complaint: Abd pn Travel History International Travel<30 Days: No Contact w/Intl Traveler <30 Da: No Traveled to Known Affected Are: No Sepsis Criteria SIRS Criteria (2 or more): Heart rate over 90, WBC > 78182, < 4000 or > 10% bands Sepsis Criteria (SIRS+source): Infect source susp/known Severe Sepsis (+one): Lactate >2 Septic Shock Criteria: Lactic acid >=4 Criteria Outcome: Meets septic shock criteria History of Present Illness 66-year-old male. Date of admission 10/31/2016. Past medical history includes peripheral vascular disease, peripheral arterial disease, CABG 3/MVR, Ulcerative Colitis, Hypertension, Dyslipidemia, Coronary Disease, History of TIA , Tobaccoism Prior, THC and EtOH Use. Patient has a history of a known dental abscess lower jaw 6 weeks. Patient presents to [place] ED with a 5 day history of fatigue, fevers, nausea vomiting abdominal pain. CT chest revealed inflammation of the distal abdominal aorta stranding with gas in the wall of the aorta likely indicating aortitis. Incidentally noted was a 2.6 cm duodenal diverticuli at the head of the pancreas. Initially the patient was hypertensive with a normal white blood cell count. Patient deteriorated requiring 4 L normal saline placement of central line with flexion of 5.4. Status post surgery was asked to see. Currently recommending conservative management with antibiotics with possible repaired future. Patient is currently resting very complaining of abdominal pain. CT maxillofacial pending. Review of Systems Constitutional: COMPLAINS OF: Fatigue, Fever, DENIES: Weight gain, Weight loss Endocrine: DENIES: Polydipsia, Polyuria Eyes: DENIES: Blurred vision, Vision loss Ears, nose, mouth, throat: COMPLAINS OF: Toothache, DENIES: Odynophagia Respiratory: DENIES: Apneas, Cough, Shortness of breath Cardiovascular: DENIES: Chest pain Gastrointestinal: COMPLAINS OF: Abdominal pain, Nausea, DENIES: Diarrhea Genitourinary: DENIES: Urgency, Dysuria Musculoskeletal: DENIES: Joint pain, Back pain Integumentary: DENIES: Pruritus, Rash Hematologic/lymphatic: DENIES: Bruising Immunologic/allergic: DENIES: Eczema Neurologic: DENIES: Headache Psychiatric: DENIES: Anxiety, Mood changes Past Family Social History Allergies: Coded Allergies: MRI PRECAUTION (Verified Allergy, Severe, PACEMAKER LEAD PER DR MARTINEZ - 08/01/2010 KMD, 10/31/16) Nitrates (Verified Allergy, Severe, Hypotension, 10/31/16) Past Medical History Ulcerative colitis Peripheral vascular disease Peripheral arterial disease THC use Tobaccoism Coronary artery disease Hypertension Dyslipidemia History of claudication EtOH use Past Surgical History Bilateral lower extremity iliac stents Left carotid endarterectomy 2010 CABG 3 2001, CABG 2009 Mitral valve replacement Reported Medications Reported Meds & Prescriptions Reported Meds & Active Scripts Active Protonix (Pantoprazole Sodium) 40 Mg Tab 40 Mg PO BID Aspirin 325 Mg Tab 325 Mg PO DAILY hold aspirin for 2 weeks then resume. Reported Cilostazol 50 Mg Tab 50 Mg PO BID Multi Vitamin (Multiple Vitamin) 1 Tab Tab 1 Tab PO DAILY Metoprolol Tartrate 25 Mg Tab 12.5 Mg PO BID Asacol HD (Mesalamine) 800 Mg Tab 800 Mg PO BID Swallow whole. Take on an empty stomach. Lovastatin 40 Mg Tab 80 Mg PO HS Lisinopril 20 Mg Tab 20 Mg PO BID Plavix (Clopidogrel Bisulfate) 75 Mg Tab 75 Mg PO DAILY Canasa Supp (Mesalamine) 1,000 Mg Supp 1,000 Mg DE HS Active Ordered Medications Reviewed in EMR Family History F - CAD Social History 3-4 whiskey/day, quit tob x8 years -40 pk years - cigars+, + THC Physical Exam Vital Signs Vital Signs Date Time Temp Pulse Resp B/P Pulse Ox O2 Delivery O2 Flow Rate FiO2 10/31/16 12:37 99 20 94/51 95 Nasal Cannula 2 10/31/16 10:24 18 95 Nasal Cannula 2 10/31/16 10:24 18 10/31/16 09:02 101.1 138 28 205/97 96 Room Air Physical Exam GENERAL: 66-year-old male, critically ill currently resting in bed in no acute distress SKIN: Warm and dry. No rash HEAD: Atraumatic. Normocephalic. EYES: Pupils equal and round around 3 mm bilaterally and reactive. No scleral icterus. No injection or drainage. ENT: No nasal bleeding or discharge. Mucous membranes pink and moist. Oropharynx without erythema NECK: Trachea midline. No JVD. CARDIOVASCULAR: Regular rate and rhythm. S1, S2. No S4 without murmur RESPIRATORY: Clear to auscultation. Breath sounds equal bilaterally. GASTROINTESTINAL: Abdomen soft, tender to palpation periumbilical to suprapubic. Voluntary guarding. No rigidity. Hypoactive bowel sounds. MUSCULOSKELETAL: Extremities without significant peripheral edema. No obvious deformities. NEUROLOGICAL: Awake and alert. No obvious cranial nerve deficits. Motor grossly within normal limits. Five out of 5 muscle strength in the arms and legs. Normal speech. PSYCHIATRIC: Appropriate mood and affect; insight and judgment normal. Laboratory Laboratory Tests Test 10/31/16 10/31/16 10/31/16 09:30 12:45 13:58 White Blood Count 4.1 15.6 Red Blood Count 3.83 3.27 Hemoglobin 10.3 8.8 Hematocrit 31.6 26.6 Mean Corpuscular Volume 82.3 81.6 Mean Corpuscular Hemoglobin 26.9 26.8 Mean Corpuscular Hemoglobin 32.7 32.9 Concent Red Cell Distribution Width 15.6 15.4 Platelet Count 229 228 Mean Platelet Volume 8.4 8.3 Neutrophils (%) (Auto) 92.5 Lymphocytes (%) (Auto) 6.1 Monocytes (%) (Auto) 1.2 Eosinophils (%) (Auto) 0.1 Basophils (%) (Auto) 0.1 Neutrophils # (Auto) 3.8 Lymphocytes # (Auto) 0.2 Monocytes # (Auto) 0.0 Eosinophils # (Auto) 0.0 Basophils # (Auto) 0.0 CBC Comment DIFF FINAL AUTO DIFF Differential Comment Prothrombin Time 11.3 Prothromb Time International 1.0 Ratio Activated Partial 26.1 Thromboplast Time Urine Color YELLOW Urine Turbidity CLEAR Urine pH 6.0 Urine Specific [place] 1.021 Urine Protein 30 Urine Glucose (UA) TRACE Urine Ketones TRACE Urine Occult Blood NEG Urine Nitrite NEG Urine Bilirubin NEG Urine Urobilinogen LESS THAN 2.0 Urine Leukocyte Esterase NEG Urine RBC LESS THAN 1 Urine WBC 1 Urine Bacteria RARE Urine Hyaline Casts 2 Urine Mucus FEW Microscopic Urinalysis Comment CULT NOT INDICATED Sodium Level 131 Potassium Level 3.8 Chloride Level 94 Carbon Dioxide Level 22.7 Anion Gap 14 Blood Urea Nitrogen 12 Creatinine 1.41 Estimat Glomerular Filtration 50 Rate Random Glucose 192 Lactic Acid Level 5.4 Calcium Level 8.5 Total Bilirubin 0.8 Direct Bilirubin 0.3 Indirect Bilirubin 0.5 Aspartate Amino Transf 13 (AST/SGOT) Alanine Aminotransferase 22 (ALT/SGPT) Alkaline Phosphatase 62 Total Protein 7.3 Albumin 3.2 Lipase 73 Blood Type A POSITIVE Antibody Screen NEGATIVE Date/Time Procedure Status Source Growth 10/31/16 12:15 Aerobic Blood Culture Received Blood Peripheral Pending 10/31/16 12:15 Anaerobic Blood Culture Received Blood Peripheral Pending Result Diagram: 10/31/16 1358 10/31/16 0930 Imaging Last Impressions Abdomen/Pelvis CT 10/31/16 0916 Signed Impressions: Service Date/Time: Monday, October 31, 2016 11:13 - CONCLUSION: 1. Inflammatory changes are seen about the distal abdominal aorta. There is prominent stranding/hazy opacity in the para-aortic fat. These findings are new when compared to the prior CTA of 09/14/2016. Findings indicate periaortitis. Aortic diameter is within normal limits. There is a small amount of new gas within the aortic wall in this region. 2. Chronic colonic diverticula cyst. Damir Garcia MD Chest X-Ray 10/31/16 0000 Signed Impressions: Service Date/Time: Monday, October 31, 2016 10:03 - CONCLUSION: No acute cardiopulmonary disease identified. Damir Garcia MD Assessment and Plan Assessment and Plan Neuro/Psych: History of EtOH THC use History of TIA 2010 Acetaminophen for fever [place]/morphine as needed for pain management Vitamin bag daily 3 days for EtOH use. Last use Wednesday according to patient. Monitor for DTs. No history of withdrawal seizures per patient CV: Peripheral arterial disease Peripheral vascular disease History of bilateral iliac stents History of left carotid endarterectomy History of CABG 11/04 with mitral valve replacement Hypertension Dyslipidemia Severe sepsis Claudication Lactic acidosis Status post 4 L normal saline in ED. Norepinephrine if needed to maintain MAP greater than 65 Holding lisinopril 20 mg by mouth twice a day in light of hypotension Holding metoprolol 12.5 mg twice a day in light of hypotension Okay to continue lovastatin 80 mg by mouth at bedtime for dyslipidemia Holding Pletal 50 mg twice a day and Plavix 75 mg daily in light of possible intervention. Resp: Tobaccoism Nasal cannula to maintain saturations greater than or equal to 92% Incentive spirometry while awake Chest x-ray reveals no acute cardio pulmonary findings Tobacco cessation encouraged. GI: History of ulcerative colitis/IBD Continue Asacol 800 mg twice a day and Canasa 100 mg at night for ulcerative colitis Clear liquid diet Protonix for GI prophylaxis. On Protonix 40 mg daily at home Colace/as needed Senokot for bowel regimen : History of BPH Sesay if indicated for accurate I's nose any critically ill patient Endo: Hyperglycemia likely critical illness Sliding-scale insulin to maintain euglycemia. Accu-Cheks before meals/at bedtime/low regimen Renal: Acute kidney injury creatinine currently 1.4 Accurate I/Os Monitor urine output Status post 4 L and normal saline ED. Recheck BMP at 1999 Currently normal saline at 84 cc an hour Heme: Leukocytosis Anemia Currently no indication for transfusion of blood products Follow-up on CBC at 1999 ID: Aortitis Possible dental abscess Empirically placed on vancomycin/Zosyn for aortitis Vascular surgery/Dr. Cooper seen. Please see his note. Currently plan for antibiotic coverage with possible repair in the future. To be determined. Blood cultures 2 pending. UA no acute findings CT maxillofacial pending ID consult for antibiotic management MSK: PT evaluate and treat FEN: Hyponatremia Recheck BMP 1999. Replace electrolytes as clinically indicated Access - Left IJ CVL day #1 Prophylaxis - GI - Protonix - DVT - SCD/holding pharmacological prophylaxis. Resume when okay with vascular surgery Critical Care: The total critical care time was 65 minutes. Time to perform other separately billable procedures was not included in the critical care time. Code Status Full code Discussed Condition With Dr. Cooper, vascular, patient. ED physician Dr. Draper. Care plan discussed all questions answered. Problem Qualifiers (1) CAD (coronary artery disease): Qualified Code: I25.10 - Coronary artery disease involving [place] heart without angina pectoris, unspecified vessel or lesion type (2) Sepsis: Qualified Code: A41.9 - Sepsis, due to unspecified organism Gary Rowell MD Oct 31, 2016 14:23
[2016-10-31 15:00] LABS: BANDS 16 % (0-6); BASOPHILS 2 % (0-2); NEUTROPHIL # MANUAL DIFF 13.4 TH/MM3 (1.8-7.7); POLYS (SEG NEUTROPHILS) 70 % (16-70); WBC DIFF SAMPLE 100
[2016-10-31 15:01] LABS: PLATELET ESTIMATE SMEAR NORMAL (NORMAL); PLATELET MORPHOLOGY NORMAL (NORMAL); SCAN/DIFF FINAL DIFF MANUAL
--- NOTE | 2016-10-31 15:08 | PD.PROCEDR ---
Central Line Procedure REASON FOR PROCEDURE Central venous access PROCEDURE PERFORMED Central line placement: Left IJ CVL CONSENT Informed consent for procedure was obtained. The risks and benefits of the procedure were discussed to include but limited to bleeding, clot formation, infection, and even . ANESTHESIA Local injection of 1% Lidocaine DESCRIPTION OF THE PROCEDURE The patient was placed in supine, mild Trendelenburg position. The area was exposed and cleansed with ChloraPrep, times two. Large sterile drape was used to cover the patient, with the site exposed, under sterile conditions including cap, face mask, sterile gown, and sterile gloves. On single attempt, the introducer needle was inserted with negative pressure in syringe and venous flash was obtained. The guide wire was then advanced without any restriction and the needle was removed. The dilator was used without any complications. Using Seldinger technique the triple lumen catheter was advanced over the guide wire to a depth of 20 centimeters. The guide wire was removed. All ports were aspirated with dark venous blood return and flushed easily with sterile saline. All ports were capped. Antibiotic disc was placed around central line at puncture site. The central line was secured to the skin with two interrupted 2.0 silk sutures. The area was bandaged with sterile see-through central line bandage. RADIOLOGICAL DATA Ultrasound guidance was used to locate left internal jugular vein. Doppler/ color flow was used to confirm venous flow. COMPLICATIONS: No apparent complications ESTIMATED BLOOD LOSS: Less than 1 cc. Gary Rowell MD Oct 31, 2016 15:08
[2016-10-31] MEDS ORDERED: Vancomycin Consult Pharmacy 1 EA OTHER SCH (15:15)
[2016-10-31] MEDS: SODIUM CHLOR 0.9% 1000 ML INJ 1,000 ML IV SCH ×2 (15:25→23:54)
[2016-10-31] MEDS: SODIUM CHLORIDE 0.9% FLUSH 5 ML FLUSH IVF SCH (15:26)
--- NOTE | 2016-10-31 15:27 | RADRPT ---
EXAM DATE/TIME: 10/31/2016 15:01 [facility] COMPARISON: CHEST SINGLE AP, September 14, 2016, 8:19. INDICATIONS : Central Line Placement. MEDICAL HISTORY : Gastroesophageal reflux disease. Ulcerative colitis. Hypertension. Cardiovascular disease. SURGICAL HISTORY : CABG. Pacemaker. ENCOUNTER: Initial ACUITY: 1 day PAIN SCORE: 0/10 LOCATION: Bilateral chest FINDINGS: A single view of the chest demonstrates the lungs to be symmetrically aerated without evidence of mas s, infiltrate or effusion. The cardiomediastinal contours are unremarkable. Osseous structures are intact. Left jugular central line with tip in the cavoatrial junction. Status post CABG. CONCLUSION: Adequate placement of left jugular central line. Attila Whalen MD on October 31, 2016 at 15:25 Board Certified Radiologist. This report was verified electronically.
--- NOTE | 2016-10-31 15:32 | RADRPT ---
EXAM DATE/TIME: 10/31/2016 14:08 [facility] COMPARISON: No previous studies available for comparison. INDICATIONS : Abdominal pain. MEDICAL HISTORY : Myocardial infarction. Hypercholesterolemia. Inflammatory bowel disease. TIA. HTN. Hyperlipidemia. CA D. GERD. Substance use. Anticoagulant therapy, Aspirin. SURGICAL HISTORY : Carotid endarterectomy. CABG. Coronary artery stent. Pacemaker. Cardiac cath. ENCOUNTER: Initial ACUITY: 4-6 days PAIN SCORE: 10/10 LOCATION: Abdomen. MEASUREMENTS: LIVER: 15.3 cm length COMMON DUCT: 3 mm RIGHT KIDNEY: 10.1 x 5.5 x 5.5 cm LEFT KIDNEY: 10.5 x 5.4 x 5.7 cm SPLEEN: 11.1 cm length AORTA: 2.4cm maximal FINDINGS: LIVER: Normal echotexture without focal lesion or ductal dilatation. COMMON DUCT: No intraluminal mass or stone visualized. GALLBLADDER: Contains no stones, demonstrates no wall thickening or pericholecystic fluid. PANCREAS: The visualized portions are within normal limits. RIGHT KIDNEY: 4 mm echogenic focus in the lower pole of the right kidney indicating either an angiomyolipoma or non obstructing calculus. LEFT KIDNEY: No hydronephrosis, stone or mass. SPLEEN: No focal lesion. AORTA: Non aneurysmal. IVC: Within normal limits. CONCLUSION: Nonobstructing calculus versus angiomyolipoma in the lower pole of the right kidney. Abdominal ultras ound otherwise within normal limits. Damir Garcia MD on October 31, 2016 at 15:28 Board Certified Radiologist. This report was verified electronically.
[2016-10-31] MEDS ORDERED: MULTIVITAMIN INJ 10 ML, THIAMINE INJ 100 MG, FOLIC ACID INJ 1 MG in SODIUM CHLORID 0.9%... IV SCH (16:00)
[2016-10-31] MEDS: INSULIN NovoLIN REGULAR SUPPLEMENTAL SCALE SQ SCH ×2 (16:00→21:00)
--- NOTE | 2016-10-31 16:44 | EC ---
Study Study Date:10/31/2016 STUDY CONCLUSIONS SUMMARY - Procedure narrative: Transthoracic echocardiography. Image quality was fair. Scanning was performed from the parasternal, apical, and subcostal acoustic windows. - Left ventricle: The cavity size was normal. Wall thickness was normal. Systolic function was normal. The estimated ejection fraction was in the range of 55% to 60%. Wall motion was normal; there were no regional wall motion abnormalities. - Mitral valve: Moderately calcified annulus. Trace regurgitation. - Tricuspid valve: Mild regurgitation. - Pulmonary arteries: PA peak pressure: 38mm Hg (S). If LV function is below 40, please consider prescribing an ACEI or ARB or document rationale for non-use. PROCEDURE DATA STUDY STATUS: Elective. Procedure: Transthoracic echocardiography. Image quality was fair. Scanning was performed from the parasternal, apical, and subcostal acoustic windows. Study completion: The patient tolerated the procedure well. Transthoracic echocardiography. M-mode, complete 2D, complete spectral Doppler, and color Doppler. Height: Height: 70in. Weight: Weight: 164.7lb. Body mass index: BMI: 23.7kg/m^2. Body surface area: BSA: 1.92m^2. Patient status: Inpatient. CARDIAC ANATOMY LEFT VENTRICLE: The cavity size was normal. Wall thickness was normal. Systolic function was normal. The estimated ejection fraction was in the range of 55% to 60%. Wall motion was normal; there were no regional wall motion abnormalities. AORTIC VALVE: Trileaflet; normal thickness leaflets. Doppler: Transvalvular velocity was within the normal range. There was no stenosis. No regurgitation. Indexed valve area: 0.78cm^2/m^2 (VTI). Valve area: 1.36cm^2 (Vmax). Indexed valve area: 0.71cm^2/m^2 (Vmax). Mean gradient: 6mm Hg (S). Peak gradient: 10mm Hg (S). AORTA: Aortic root: The aortic root was normal in size. MITRAL VALVE: Moderately calcified annulus. Doppler: Transvalvular velocity was within the normal range. There was no evidence for stenosis. Trace regurgitation. Peak gradient: 5mm Hg (D). LEFT ATRIUM: The atrium was normal in size. RIGHT VENTRICLE: The cavity size was normal. Wall thickness was normal. PULMONIC VALVE: Doppler: Transvalvular velocity was within the normal range. There was no evidence for stenosis. No regurgitation. TRICUSPID VALVE: Structurally normal valve. Doppler: Transvalvular velocity was within the normal range. Mild regurgitation. PULMONARY ARTERY: The main pulmonary artery was normal-sized. Systolic pressure was within the normal range. RIGHT ATRIUM: The atrium was normal in size. PERICARDIUM: There was no pericardial effusion. SYSTEMIC VEINS: Inferior vena cava: The vessel was normal in size. Patient weight: 164.7lb _Ejection fraction:_ 65-75% _Fractional shortening:_ 32% up to 5Kg 5-11.5Kg 11.6-22.9Kg 23-45Kg 45-57Kg Aortic Root 7-13 <17 13-22 17-27 17-27 LA diam 6-13 <23 24-38 33-47 37-40 RVID 10-17 7-15 7-15 7-18 8-17 LVIDd 12-22 <32 24-38 33-47 37-40 LVPW 2-4 3-6 5-7 6-8 7-8 IVS 2-4 3-6 5-7 6-8 7-8 BASIC MEASUREMENTS ADULT NORMAL Left ventricle LV internal dimension, ED, chordal 48.7 mm 43-52 level, PLAX LV internal dimension, ES, chordal 33.9 mm 23-38 level, PLAX Fractional shortening, chordal level, 30 % >29 PLAX LV posterior wall thickness, ED 6.38 mm IVS/LVPW ratio, ED *1.32 <1.3 Ventricular septum Septal thickness, ED 8.43 mm Aortic valve Leaflet separation 22 mm 15-26 Aorta Root diameter, ED 39 mm Left atrium Anterior-posterior dimension 44 mm Anterior-posterior dimension index *2.29 cm/m^2 <2.2 BASIC MEASUREMENTS ADULT NORMAL Aortic valve Leaflet separation 22 mm 15-26 DOPPLER MEASUREMENTS ADULT NORMAL Main pulmonary artery Pressure, S *38 mm Hg =30 Aortic valve Peak velocity, S 159 cm/s Mean velocity, S 113 cm/s VTI, S 30.6 cm Mean gradient, S 6 mm Hg Peak gradient, S 10 mm Hg Valve area index, VTI 0.78 cm^2/m^2 Valve area, Vmax 1.36 cm^2 Valve area index, Vmax 0.71 cm^2/m^2 Mitral valve Peak E-wave velocity 116 cm/s Peak A-wave velocity 66.9 cm/s Peak gradient, D 5 mm Hg Peak E/A ratio 1.7 Tricuspid valve Regurgitant peak velocity 270 cm/s Peak RV-RA gradient, S 29 mm Hg Maximal regurgitant velocity 270 cm/s Systemic veins Estimated CVP 10 mm Hg Right ventricle RV pressure, S *39 mm Hg <30 Pulmonic valve Peak velocity, S 53.4 cm/s LEGEND: Mean values are shown as u=mean value. Asterisk (*) patel values outside specified normal range. Prepared and signed by Eddie Clemons [id number]
[2016-10-31] MEDS ORDERED: VANCOMYCIN INJ 2,000 MG in SODIUM CHLOR 0.9% 250 ML INJ 250 ML IV ONE (17:00)
[2016-10-31] MEDS ORDERED: VANCOMYCIN INJ 2,000 MG in SODIUM CHLORID 0.9% 500 ML INJ 500 ML IV ONE (17:00)
--- NOTE | 2016-10-31 17:02 | PD.CONS ---
History of Present Illness Service Infectious disease Consult Requested By Dr. Miley Rowell Reason for Consult Evaluate patient with [place]ton-aortitis, history of dental abscess Primary Care Physician Galindo Garcia MD Diagnoses: History of Present Illness Patient seen and examined. Records reviewed. Patient is a 66-year-old male presented to the hospital for evaluation of constipation, abdominal pain, and back pain. His problems started about 5 days prior to admission when he woke up and he has this lower abdominal discomfort. The pain goes to his lower back. He also didn't have a bowel movement that day which is unusual for him because he usually goes like clockwork every 7:00 in the morning. Over the next days, he has not had any bowel movement, and has developed worsening abdominal pain and back pain. He's been having some chills , and had an episode of sweats. He never took his temperature. He denies any respiratory complaint, no sore throat, no nausea or vomiting. He denies any urinary complaints. Patient's last hospitalization was back in September and at that time he had hematemesis, as well as black tarry stools. He underwent upper endoscopy which showed gastric ulcer, and also had colonoscopy. During that admission he had mentioned that he was having problem with pain on his right lower molar. There is no real significant swelling on his face or jaw area. At that time he had called his dentist, and patient was instructed to hold his Plavix before his dentist can do any kind of procedure. He was given a prescription for antibiotics as well as pain medication. His symptoms resolved, but the patient never did follow-up with his dentist. All his dental complaints have resolved. He has not had any recurrent pain, and has not developed any kind of swelling on his face. On presentation here in the emergency room his white count was 15,000. He was febrile up to 101+. CT of the abdomen and pelvis showed some evidence of inflammatory changes around the distal aorta. His blood pressure was initially elevated, but while in the ED he dropped his blood pressure which improved after fluid resuscitation. Patient currently is pain-free. Vascular surgery saw the patient and recommended conservative treatment and antibiotics. Back in September patient had undergone CT of the aorta and there was no findings as far as aneurysm. Infectious disease consultation has been requested to evaluate the patient. Review of Systems Constitutional: COMPLAINS OF: Fever, Chills, Night Sweats Eyes: DENIES: Eye pain Ears, nose, mouth, throat: COMPLAINS OF: Toothache, DENIES: Nasal discharge, Oral lesions, Throat pain, Ear Pain, Sinus Pain Respiratory: DENIES: Cough, Shortness of breath Cardiovascular: DENIES: Chest pain, Palpitations Gastrointestinal: COMPLAINS OF: Abdominal pain, Constipation, DENIES: Diarrhea , Nausea, Vomiting, Difficulty Swallowing Genitourinary: COMPLAINS OF: Nocturia, DENIES: Urgency, Hematuria, Dysuria Musculoskeletal: COMPLAINS OF: Back pain, DENIES: Joint pain, Joint Swelling Integumentary: DENIES: Rash Hematologic/lymphatic: DENIES: Lymphadenopathy Immunologic/allergic: DENIES: Urticaria Psychiatric: DENIES: Anxiety, Hallucinations Past Family Social History Allergies: Coded Allergies: MRI PRECAUTION (Verified Allergy, Severe, PACEMAKER LEAD PER DR MARTINEZ - 08/01/2010 KMD, 10/31/16) Nitrates (Verified Allergy, Severe, Hypotension, 10/31/16) Past Medical History Ulcerative colitis Peripheral vascular disease THC use Tobaccoism Coronary artery disease Hypertension Dyslipidemia History of claudication ETOH use Gastric ulcer, previous GIB Past Surgical History Bilateral lower extremity iliac stents Left carotid endarterectomy 2010 CABG 3 2001 CABG 1, MV ring annuloplasty 2009 Active Ordered Medications Tylenol [place] Albuterol Colace Insulin Asa call I [place] Morphine MVI thiamine and folate acid Zofran Protonix Zosyn Pravachol Senokot Vancomycin Social History Smokes cigars Drinks whiskey every night about 3 shots Smokes marijuana every day Hari IVDU Physical Exam Vital Signs Vital Signs Date Time Temp Pulse Resp B/P Pulse Ox O2 Delivery O2 Flow Rate FiO2 10/31/16 15:32 79 18 113/63 96 Room Air 10/31/16 12:37 99 20 94/51 95 Nasal Cannula 2 10/31/16 10:24 18 95 Nasal Cannula 2 10/31/16 10:24 18 10/31/16 09:02 101.1 138 28 205/97 96 Room Air Physical Exam GENERAL: This is a well-nourished, well-developed male, awake and alert, not toxic appearing, in no apparent distress. SKIN: Warm and dry. No generalized rash or ecchymosis. No peripheral embolic lesions seen. HEAD: Atraumatic. Normocephalic. No temporal or scalp tenderness. EYES: [place] conjunctivae, no petechia or hemorrhage. Pupils equal round and reactive. Extraocular motions intact. No scleral icterus. No injection or drainage. ENT: Nose without bleeding, or purulent drainage. Moist oral mucosa. Throat without erythema, or exudate. Uvula midline. Airway patent. NECK: Trachea midline. No JVD or lymphadenopathy. Supple, nontender, no meningeal signs. CARDIOVASCULAR: Regular rate and rhythm without murmurs, gallops, or rubs. No murmur. Healed sternotomy incision. RESPIRATORY: Clear to auscultation. Breath sounds equal bilaterally. No wheezes , rales, or rhonchi. GASTROINTESTINAL: Abdomen soft, non-tender, nondistended. Bowel sounds are present and normoactive. No hepato-splenomegaly, or palpable masses. No guarding. No rebound. MUSCULOSKELETAL: Extremities without clubbing, cyanosis, or edema. No joint tenderness, effusion, or edema noted. No calf tenderness. Negative Homans sign bilaterally. NEUROLOGICAL: Awake and alert. Cranial nerves II through XII intact. Motor and sensory grossly within normal limits. Five out of 5 muscle strength in all muscle groups. Normal speech. PSYCH: Normal affect, calm and cooperative LINE: Central line with no evidence of infection, placed 10/31 Laboratory Laboratory Tests Test 10/31/16 10/31/16 10/31/16 09:30 12:45 13:58 White Blood Count 4.1 15.6 Red Blood Count 3.83 3.27 Hemoglobin 10.3 8.8 Hematocrit 31.6 26.6 Mean Corpuscular Volume 82.3 81.6 Mean Corpuscular Hemoglobin 26.9 26.8 Mean Corpuscular Hemoglobin 32.7 32.9 Concent Red Cell Distribution Width 15.6 15.4 Platelet Count 229 228 Mean Platelet Volume 8.4 8.3 Neutrophils (%) (Auto) 92.5 Lymphocytes (%) (Auto) 6.1 Monocytes (%) (Auto) 1.2 Eosinophils (%) (Auto) 0.1 Basophils (%) (Auto) 0.1 Neutrophils # (Auto) 3.8 Lymphocytes # (Auto) 0.2 Monocytes # (Auto) 0.0 Eosinophils # (Auto) 0.0 Basophils # (Auto) 0.0 CBC Comment DIFF FINAL AUTO DIFF Differential Comment FINAL DIFF MANUAL Prothrombin Time 11.3 Prothromb Time International 1.0 Ratio Activated Partial 26.1 Thromboplast Time Urine Color YELLOW Urine Turbidity CLEAR Urine pH 6.0 Urine Specific [place] 1.021 Urine Protein 30 Urine Glucose (UA) TRACE Urine Ketones TRACE Urine Occult Blood NEG Urine Nitrite NEG Urine Bilirubin NEG Urine Urobilinogen LESS THAN 2.0 Urine Leukocyte Esterase NEG Urine RBC LESS THAN 1 Urine WBC 1 Urine Bacteria RARE Urine Hyaline Casts 2 Urine Mucus FEW Microscopic Urinalysis Comment CULT NOT INDICATED Sodium Level 131 Potassium Level 3.8 Chloride Level 94 Carbon Dioxide Level 22.7 Anion Gap 14 Blood Urea Nitrogen 12 Creatinine 1.41 Estimat Glomerular Filtration 50 Rate Random Glucose 192 Lactic Acid Level 5.4 Calcium Level 8.5 Total Bilirubin 0.8 Direct Bilirubin 0.3 Indirect Bilirubin 0.5 Aspartate Amino Transf 13 (AST/SGOT) Alanine Aminotransferase 22 (ALT/SGPT) Alkaline Phosphatase 62 Total Protein 7.3 Albumin 3.2 Lipase 73 Blood Type A POSITIVE Antibody Screen NEGATIVE Differential Total Cells 100 Counted Neutrophils % (Manual) 70 Band Neutrophils % 16 Lymphocytes % 5 Monocytes % 7 Basophils % 2 Neutrophils # (Manual) 13.4 Platelet Estimate NORMAL Platelet Morphology Comment NORMAL Date/Time Procedure Status Source Growth 10/31/16 12:15 Aerobic Blood Culture Received Blood Peripheral Pending 10/31/16 12:15 Anaerobic Blood Culture Received Blood Peripheral Pending Result Diagram: 10/31/16 1358 10/31/16 0930 Imaging RADIOLOGY STUDIES/FILMS REVIEWED Chest X-Ray 10/31/16 1508 Signed Impressions: Service Date/Time: Monday, October 31, 2016 15:01 - CONCLUSION: Adequate placement of left jugular central line. Attila Whalen MD Abdomen/Pelvis CT 10/31/16 0916 Signed Impressions: Service Date/Time: Monday, October 31, 2016 11:13 - CONCLUSION: 1. Inflammatory changes are seen about the distal abdominal aorta. There is prominent stranding/hazy opacity in the para-aortic fat. These findings are new when compared to the prior CTA of 09/14/2016. Findings indicate periaortitis. Aortic diameter is within normal limits. There is a small amount of new gas within the aortic wall in this region. 2. Chronic colonic diverticula cyst. Damir Garcia MD Abdomen Ultrasound 10/31/16 0000 Signed Impressions: Service Date/Time: Monday, October 31, 2016 14:08 - CONCLUSION: Nonobstructing calculus versus angiomyolipoma in the lower pole of the right kidney. Abdominal ultrasound otherwise within normal limits. 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
--- NOTE | 2016-10-31 17:35 | MB ---
cc: NIEVES ANDREW DATE OF CONSULTATION 10/31/16 REASON FOR CONSULTATION Abdominal aorta sepsis, hypotensive shock, peripheral vascular disease. Critical care time 45 minutes. HISTORY OF PRESENT ILLNESS This 66-year-old male presents to the hospital with some mild lower abdominal pain and sweating two days ago. The patient is being is worked up in the emergency room, underwent CT scan of abdomen and pelvis which reveals some air in the distal abdominal aortic wall and has some inflammation around the distal aorta, hence, the consultation. PAST MEDICAL HISTORY 1. Medical noncompliance 2. Hypertension, 3. Coronary artery disease, 4. Peripheral vascular disease PAST SURGICAL HISTORY 1. Bilateral SFA stenting two years ago and last year the patient had a bilateral common iliac stenting for peripheral vascular disease, 2. Pacemaker placement. 3. The patient also has had two admissions for rotten teeth and oral infections just about a few weeks ago. MEDICATIONS 1. Metoprolol. 2. Lisinopril. 3. Plavix. 4. Mesalamine SOCIAL HISTORY The patient smokes cigars and drinks admittedly fair amount of whiskey. REVIEW OF SYSTEMS Except for mild diffuse back pain and abdominal pain, the patient feels okay. PHYSICAL EXAMINATION GENERAL: A 66-year-old male. HEENT: Normocephalic. No trauma to the head. Pupils equally reactive. Extraocular muscles intact. Sclerae appear to be nonicteric and mucous membranes are well vascularized and pink. NECK: Bilateral carotid pulses and bilateral carotid bruits, left more than right. CHEST: Decreased breath sounds over both lung rodriguez consistent with moderate degree of COPD. HEART: Regular rhythm. Pacemaker in place. ABDOMEN: Actually soft. Active bowel sounds. On palpation while I examine the patient, he is not tender. There is no rebound, guarding. No masses. The inflammatory changes observed on the CT scan cannot be confirmed at clinical exam, although ____ there. GROINS: Normal. EXTREMITIES: The patient has weak palpable femoral pulses and dopplerable posterior tibial pulses. Bilateral dorsalis pedis on the left, none on the right. BACK: Back appears to be normal. NEUROLOGIC: The patient is grossly intact. CONCLUSION I reviewed laboratory and diagnostic procedures. 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 There are indeed several specks of air in the abdominal aortic wall, mainly on the right side. Aortitis in humans occurs in two categories. There are noninfectious inflammations of the aorta and then infectious ones in noninfectious ones where generally dealing with collagen vascular diseases like Becket syndrome, ankylosing spondylitis, scleroderma, lupus and other autoimmune connective tissue collagen vascular disorders. As far as infectious processes are concerned, the classic aortic infection seen in the distant past were those related to syphilis and which are very rarely seen today and the most commonly now we see are staph aureus, Streptococcus as well as Salmonella. About 50% of the infections seen are either Salmonella or Staphylococcus. Other things that we can see today are infections with Campylobacter, Clostridium and of course those related to HIV and AIDS infectious. Infectious __titis is bad news because medical therapy sometimes often not sufficient and the patients end up with resections of the aorta and extraanatomic bypasses. In this particular gentleman, he is starting to show symptoms of sepsis. He is becoming slightly more labile in blood pressure, has received about four liters of fluids and is now being resuscitated back to his normotension. This gentleman will get worse before he gets better. He should be placed on broad-spectrum antibiotics, have an echocardiogram of the heart and supportive care in the ICU. It is my opinion that the patient probably acquired infection in the aorta as a result of entries place in his oral cavity, but it is not inconceivable to think that maybe placement of the stents last year might have been the nidus and with infection in the oral cavity, the foreign body has a gotten infected and hence the problem. Either way, the patient will be placed in the ICU. He will be placed on antibiotics and supportive care. In best case scenario, the patient will improve and will not need any surgery. Aortograft unfortunately will not be a good option for this gentleman in face of infection, but also in the face of the fact that he has bilateral iliac stents so I could not place aortobifemoral graft so the only other option would be resection of the abdominal aorta with extraanatomic axillobifemoral graft which is not a small undertaking. Therefore hopefully he will respond to antibiotics and no surgery will be necessary. I will follow patient with you. Critical care time 45 minutes. Piobodan Allison ZHENG /3:23 PM /5:07 PM
--- NOTE | 2016-10-31 17:40 | RADRPT ---
EXAM DATE/TIME: 10/31/2016 17:14 [facility] COMPARISON: No previous studies available for comparison. INDICATIONS : Left molar abscess. RADIATION DOSE: 36.48 CTDIvol (mGy) MEDICAL HISTORY : Cardiovascular disease. Hypertension. SURGICAL HISTORY : None. ENCOUNTER: Initial ACUITY: 1 day PAIN SCORE: 5/10 LOCATION: Left facial TECHNIQUE: Volumetric scanning of the facial bones was performed. Using automated exposure control and adjustme nt of the mA and/or kV according to patient size, radiation dose was kept as low as reasonably achiev able to obtain optimal diagnostic quality images. FINDINGS: ORBITS: The orbital and infraorbital osseous structures are intact. The retroconal structures have a normal configuration. No radiopaque foreign bodies are seen. NASAL BONE: The nasal bone and maxillary spine are intact ZYGOMATIC ARCHES: Symmetric without evidence of fracture. SINUSES: The maxillary, ethmoid and frontal sinuses are intact. No air-fluid levels seen. NASAL CAVITY: The nasal septum is intact and midline. The lacrimal ducts are intact. SOFT TISSUES: No radiopaque foreign bodies seen. There is soft-tissue swelling seen. INTRACRANIAL: No intracranial air seen. CRIBIFORM PLATE: Grossly intact. CONCLUSION: No abscess/fluid collection. Attila Whalen MD on October 31, 2016 at 17:36 Board Certified Radiologist. This report was verified electronically.
[2016-10-31] MEDS: ARTIFICIAL TEARS OPTH SOLN 15 ML BTL EACH EYE SCH (18:00)
[2016-10-31] MEDS: PIPERACIL-TAZO 4.5 GM PREMIX 100 ML IV SCH ×2 (18:44→23:54)
[2016-10-31] MEDS: RESP: ALBUTEROL 2.5 MG/IPRATROPIUM 0.5 MG NEB (SCH) INH (20:51)
[2016-10-31] MEDS ORDERED: SODIUM CHLORIDE 0.9% FLUSH 5 ML FLUSH IV FLUSH SCH (21:00)
[2016-10-31 21:13] LABS: HEMATOCRIT 23.5 % (39.0-51.0); MEAN CELL VOLUME 82.2 FL (80.0-100.0); MEAN CORPUSCULAR HEMOGLOBIN 27.4 PG (27.0-34.0); MEAN CORPUSCULAR HGB CONC 33.3 % (32.0-36.0); PLATELET COUNT 211 TH/MM3 (150-450); RED BLOOD COUNT 2.86 MIL/MM3 (4.50-5.90); RED CELL DISTRIBUTION WIDTH 15.2 % (11.6-17.2); REVIEW FLAG FINAL; WHITE BLOOD COUNT 15.3 TH/MM3 (4.0-11.0)
[2016-10-31] MEDS: PRAVASTATIN SOD 40 MG TAB PO SCH (21:21)
[2016-10-31] MEDS: ACETAMINOPHEN/HYDROcodone 325 MG/5 MG TAB PO PRN (21:21)
[2016-10-31] MEDS: DOCUSATE SODIUM 100 MG CAP PO SCH (21:22)
[2016-10-31] MEDS: SODIUM CHLORIDE 0.9% FLUSH 5 ML FLUSH IV FLUSH SCH (21:22)
[2016-10-31] MEDS: MESALAMINE HD 800 MG DELAYED RELEASE TAB PO SCH (21:22)
[2016-10-31] MEDS: MESALAMINE 1000 MG SUPP PR SCH (21:23)
[2016-10-31] MEDS ORDERED: ZOLPIDEM TARTRATE 10 MG TAB PO PRN (21:30)
[2016-10-31 22:48] LABS: BICARBONATE 24.4 MEQ/L (21.0-32.0); INDIRECT BILIRUBIN 0.3 MG/DL (0.0-0.8); POTASSIUM 4.1 MEQ/L (3.5-5.1); TOTAL BILIRUBIN ADULT 0.5 MG/DL (0.2-1.0)
[2016-11-01] VITALS (14 sets, daily range): BP systolic 90–166; BP diastolic 52–78; PULSE 60–107; RESP 19–27; TEMP 98–98.9; O2SAT 89–98
[2016-11-01] MEDS: RESP: ALBUTEROL 2.5 MG/IPRATROPIUM 0.5 MG NEB (SCH) INH ×4 (03:28→22:27)
[2016-11-01] MEDS: CHLORHEXIDINE GLUCONATE 2 % 1 PACK (2 CLOTHS) TOP SCH (04:00)
[2016-11-01] MEDS: PIPERACIL-TAZO 4.5 GM PREMIX 100 ML IV SCH ×4 (04:25→21:52)
[2016-11-01 04:52] LABS: AUTOMATED NEUTROPHIL # 9.6 TH/MM3 (1.8-7.7); BASOPHIL % 0.2 % (0.0-2.0); EOSINOPHIL # 0.1 TH/MM3 (0-0.4); EOSINOPHIL % 0.7 % (0.0-4.0); HEMATOCRIT 23.2 % (39.0-51.0); HEMO FLAGS DIFF FINAL; LYMPH % 7.1 % (9.0-44.0); LYMPHOCYTE # 0.8 TH/MM3 (1.0-4.8); MEAN CORPUSCULAR HEMOGLOBIN 27.1 PG (27.0-34.0); MONO % 10.6 % (0.0-8.0); NEUT % 81.4 % (16.0-70.0); PLATELET COUNT 207 TH/MM3 (150-450); RED BLOOD COUNT 2.83 MIL/MM3 (4.50-5.90); RED CELL DISTRIBUTION WIDTH 15.5 % (11.6-17.2); WHITE BLOOD COUNT 11.8 TH/MM3 (4.0-11.0)
[2016-11-01 05:06] LABS: APTT (PATIENT) 31.7 SEC (24.3-30.1); PROTHROMBIN TIME - PATIENT 11.6 SEC (9.8-11.6)
[2016-11-01] MEDS: INSULIN NovoLIN REGULAR SUPPLEMENTAL SCALE SQ SCH ×4 (07:00→20:54)
[2016-11-01] MEDS ORDERED: GLYCERIN ADULT 2 GM SUPP RECTAL PRN (08:15)
--- NOTE | 2016-11-01 08:23 | HHI.CCPN ---
Subjective Remarks/Hospital Course 66-year-old male. Date of admission 10/31/2016. Past medical history includes peripheral vascular disease, peripheral arterial disease, CABG 3/MVR, Ulcerative Colitis, Hypertension, Dyslipidemia, Coronary Disease, History of TIA , Tobaccoism Prior, THC and EtOH Use. Patient has a history of a known dental abscess lower jaw 6 weeks. Patient presents to [facility] ED with a 5 day history of fatigue, fevers, nausea vomiting abdominal pain. CT chest revealed inflammation of the distal abdominal aorta stranding with gas in the wall of the aorta likely indicating aortitis. Incidentally noted was a 2.6 cm duodenal diverticuli at the head of the pancreas. Initially the patient was hypertensive with a normal white blood cell count. Patient deteriorated requiring 4 L normal saline placement of central line with flexion of 5.4. Status post surgery was asked to see. Currently recommending conservative management with antibiotics with possible repaired future. Patient is currently resting very complaining of abdominal pain. CT maxillofacial pending. Subjective 11/01: Resting currently in bed. Currently afebrile. Major complaint is constipation. No bowel movement 5 days according to patient. Abdomen less tender today. Tolerating diet. Objective Vital Signs Date Time Temp Pulse Resp B/P Pulse Ox O2 Delivery O2 Flow Rate FiO2 11/01/16 06:00 83 11/01/16 04:00 98.9 19 104/61 98 10/31/16 19:40 Nasal Cannula 2.00 Intake and Output 10/31/16 10/31/16 11/01/16 08:00 16:00 00:00 Intake Total 2136 ml Output Total 800 ml 475 ml Balance -800 ml 1661 ml Result Diagram: 11/01/16 0430 10/31/160 Other Results Microbiology Date/Time Procedure Status Source Growth 11/01/16 04:40 Aerobic Blood Culture Received Blood Peripheral Pending 11/01/16 04:40 Anaerobic Blood Culture Received Blood Peripheral Pending Imaging Last Impressions Chest X-Ray 10/31/16 1508 Signed Impressions: Service Date/Time: Monday, October 31, 2016 15:01 - CONCLUSION: Adequate placement of left jugular central line. Attila Whalen MD Abdomen/Pelvis CT 10/31/16 0916 Signed Impressions: Service Date/Time: Monday, October 31, 2016 11:13 - CONCLUSION: 1. Inflammatory changes are seen about the distal abdominal aorta. There is prominent stranding/hazy opacity in the para-aortic fat. These findings are new when compared to the prior CTA of 09/14/2016. Findings indicate periaortitis. Aortic diameter is within normal limits. There is a small amount of new gas within the aortic wall in this region. 2. Chronic colonic diverticula cyst. Damir Garcia MD Maxillofacial CT 10/31/16 0000 Signed Impressions: Service Date/Time: Monday, October 31, 2016 17:14 - CONCLUSION: No abscess/fluid collection. Attila Whalen MD Abdomen Ultrasound 10/31/16 0000 Signed Impressions: Service Date/Time: Monday, October 31, 2016 14:08 - CONCLUSION: Nonobstructing calculus versus angiomyolipoma in the lower pole of the right kidney. Abdominal ultrasound otherwise within normal limits. Damir Garcia MD Objective Remarks GENERAL: 66-year-old male, critically ill currently resting in bed in no acute distress SKIN: Warm and dry. No rash HEAD: Atraumatic. Normocephalic. EYES: Pupils equal and round around 3 mm bilaterally and reactive. No scleral icterus. No injection or drainage. ENT: No nasal bleeding or discharge. Mucous membranes pink and moist. Oropharynx without erythema NECK: Trachea midline. No JVD. CARDIOVASCULAR: Regular rate and rhythm. S1, S2. No S4 without murmur RESPIRATORY: Clear to auscultation. Breath sounds equal bilaterally. GASTROINTESTINAL: Abdomen soft, tender to palpation periumbilical to suprapubic. Currently minimal voluntary guarding. No rigidity. Hypoactive bowel sounds. MUSCULOSKELETAL: Extremities without significant peripheral edema. No obvious deformities. NEUROLOGICAL: Awake and alert. No obvious cranial nerve deficits. Motor grossly within normal limits. Five out of 5 muscle strength in the arms and legs. Normal speech. PSYCHIATRIC: Appropriate mood and affect; insight and judgment normal. Urinary Catheter: No Assessment to: Continue Vascular Central Line Catheter: Yes Assessment to: Continue Date of Insertion: Oct 31, 2016 Line: Central Venous Catheter Side: Left Location: Internal, Jugular A/P Assessment and Plan Neuro/Psych: History of EtOH THC use History of TIA 2010 Acetaminophen for fever [place]/morphine as needed for pain management Vitamin bag daily 3 days for EtOH use switch to thiamine/folate and multivitamin daily. Last use Wednesday according to patient. Monitor for DTs. No history of withdrawal seizures per patient CV: Peripheral arterial disease Peripheral vascular disease History of bilateral iliac stents History of left carotid endarterectomy History of CABG 11/04 with mitral valve replacement Hypertension Dyslipidemia Severe sepsis Claudication Lactic acidosis Status post 4 L normal saline in ED. Norepinephrine if needed to maintain MAP greater than 65. Currently map acceptable Holding lisinopril 20 mg by mouth twice a day in light of hypotension Holding metoprolol 12.5 mg twice a day in light of hypotension Okay to continue lovastatin 80 mg by mouth at bedtime for dyslipidemia Holding Pletal 50 mg twice a day and Plavix 75 mg daily in light of possible intervention. Discussed with Dr. Allison Dominguez Noted area and wall of aorta on CT with periaortic fat stranding indicative inflammatory type changes likely aortitis. See consult note from vascular. No immediate need for intervention at this time. Likely in future Echo 10/31 EF 55-60%. Calcified mitral valve. Trace regurg. Trace tricuspid regurg. NI 38 mmHg. No signs of endocarditis Resp: Tobaccoism Nasal cannula to maintain saturations greater than or equal to 92% Incentive spirometry while awake Chest x-ray reveals no acute cardio pulmonary findings Tobacco cessation encouraged. GI: History of ulcerative colitis/IBD Constipation Colonic diverticular cyst Continue Asacol 800 mg twice a day and [place] 1000 mg at night for ulcerative colitis Clear liquid diet. Advance as tolerated Protonix for GI prophylaxis. On Protonix 40 mg daily at home Colace/ Senokot/MiraLAX twice a day for bowel regimen. Add lactulose 4 times a day and as needed glycerin suppositories CT abdomen/pelvis revealed no obstructive process his bowels. Positive diverticular cyst near pancreas. Chronic. : History of BPH Sesay if indicated for accurate I's nose any critically ill patient Prostate 4.[address] abdomen/pelvis Endo: Hyperglycemia likely critical illness Sliding-scale insulin to maintain euglycemia. Accu-Cheks before meals/at bedtime/low regimen Renal: Acute kidney injury creatinine currently 1.4 Accurate I/Os Monitor urine output Status post 4 L and normal saline ED. Recheck BMP at 1999 Currently normal saline at 84 cc an hour Heme: Leukocytosis Anemia Currently no indication for transfusion of blood products Follow-up on CBC hemoglobin currently 7.7. ID: Aortitis Possible dental abscess Empirically placed on vancomycin/Zosyn for aortitis day #2 Vascular surgery/Dr. Cooper seen. Please see his note. Currently plan for antibiotic coverage with possible repair in the future. To be determined. Blood cultures 2 10/31 and 11/01 pending. UA revealed no acute findings CT maxillofacial revealed no dental abscess ID consult for antibiotic management MSK: PT evaluate and treat FEN: Hyponatremia - resolved Recheck BMP in a.m. Replace electrolytes as clinically indicated Access - Left IJ CVL day #2 Prophylaxis - GI - Protonix - DVT - SCD/holding pharmacological prophylaxis. Resume when okay with vascular surgery Critical Care: The total care time was 35 minutes. Time to perform other separately billable procedures was not included in the critical care time. Gary Rowell MD Nov 01, 2016 08:23
[2016-11-01] MEDS ORDERED: MAGNESIUM HYDROXIDE SUSP 30 ML CUP PO PRN (08:30)
[2016-11-01] MEDS: MESALAMINE HD 800 MG DELAYED RELEASE TAB PO SCH ×2 (08:41→20:51)
[2016-11-01] MEDS: MULTIVITAMIN TAB PO SCH (08:41)
[2016-11-01] MEDS: DOCUSATE SODIUM 100 MG CAP PO SCH ×2 (08:41→20:52)
[2016-11-01] MEDS: ACETAMINOPHEN/HYDROcodone 325 MG/5 MG TAB PO PRN ×4 (08:42→21:51)
[2016-11-01] MEDS: PANTOPRAZOLE SODIUM 40 MG VIAL IV SCH (08:42)
[2016-11-01] MEDS: SODIUM CHLORIDE 0.9% FLUSH 5 ML FLUSH IV FLUSH SCH ×2 (08:42→20:52)
[2016-11-01] MEDS: FOLIC ACID 1 MG TAB PO SCH (08:42)
[2016-11-01] MEDS: SODIUM CHLORIDE 0.9% FLUSH 5 ML FLUSH IVF SCH (08:43)
[2016-11-01] MEDS: POLYETHYLENE GLYCOL 17 GM PKG PO SCH ×2 (08:49→20:52)
[2016-11-01] MEDS: LACTULOSE SYRUP 20 GM/30 ML CUP PO SCH ×4 (08:50→20:52)
[2016-11-01] MEDS ORDERED: MULTIVITAMIN TAB PO SCH (09:00)
--- NOTE | 2016-11-01 09:25 | HHI.IDPN ---
Subjective Subjective Remarks Notes reviewed Temps normal BP ok, not on pressors Abdominal pain better Still no BM BC (+) gram variable lauro in anaerobic bottle I spoke with micro, it will be subcultured, due to unusual appearance on gram stain WBC better Creatinine down to normal Antibiotics Vancomycin Zosyn Lines Central line LIJ - 10/31 Past Medical History Ulcerative colitis Peripheral vascular disease THC use Tobaccoism Coronary artery disease Hypertension Dyslipidemia History of claudication ETOH use Gastric ulcer, previous GIB Past Surgical History Bilateral lower extremity iliac stents Left carotid endarterectomy 2010 CABG 3 2001 CABG 1, MV ring annuloplasty 2009 Allergies: Coded Allergies: MRI PRECAUTION (Verified Allergy, Severe, PACEMAKER LEAD PER DR MARTINEZ - 08/01/2010 KMD, 10/31/16) Nitrates (Verified Allergy, Severe, Hypotension, 10/31/16) Objective . Vital Signs Date Time Temp Pulse Resp B/P Pulse Ox O2 Delivery O2 Flow Rate FiO2 11/01/16 08:18 97 Nasal Cannula 4.00 11/01/16 06:00 83 11/01/16 04:00 98.9 78 19 104/61 98 11/01/16 04:00 78 11/01/16 02:00 75 11/01/16 00:00 89 11/01/16 00:00 98.4 89 20 90/52 89 10/31/16 22:00 86 10/31/16 20:00 76 10/31/16 20:00 98.5 76 26 99/55 96 10/31/16 19:40 94 Nasal Cannula 2.00 10/31/16 18:00 98.7 80 20 127/64 94 10/31/16 18:00 78 10/31/16 15:32 79 18 113/63 96 Room Air 10/31/16 12:37 99 20 94/51 95 Nasal Cannula 2 10/31/16 10:24 18 95 Nasal Cannula 2 10/31/16 10:24 18 10/31/16 10/31/16 11/01/16 15:00 23:00 07:00 Intake Total 2136 ml 1246 ml Output Total 400 ml 875 ml 775 ml Balance -400 ml 1261 ml 471 ml Intake Oral 480 ml 300 ml IV Total 1656 ml 946 ml Output Urine Total 400 ml 875 ml 775 ml # Voids 1 3 . Laboratory Tests Test 2/25/10/31/16 10/31/16 11/01/16 09:30 13:58 20:50 04:30 White Blood Count 4.1 TH/MM3 15.6 TH/MM3 15.3 TH/MM3 11.8 TH/MM3 Red Blood Count 3.83 MIL/MM3 3.27 MIL/MM3 2.86 MIL/MM3 2.83 MIL/MM3 Hemoglobin 10.3 GM/DL 8.8 GM/DL 7.8 GM/DL 7.7 GM/DL Hematocrit 31.6 % 26.6 % 23.5 % 23.2 % Mean Corpuscular Volume 82.3 FL 81.6 FL 82.2 FL 82.0 FL Mean Corpuscular Hemoglobin 26.9 PG 26.8 PG 27.4 PG 27.1 PG Mean Corpuscular Hemoglobin 32.7 % 32.9 % 33.3 % 33.0 % Concent Red Cell Distribution Width 15.6 % 15.4 % 15.2 % 15.5 % Platelet Count 229 TH/MM3 228 TH/MM3 211 TH/MM3 207 TH/MM3 Mean Platelet Volume 8.4 FL 8.3 FL 8.3 FL 8.3 FL Neutrophils (%) (Auto) 92.5 % % 81.4 % Lymphocytes (%) (Auto) 6.1 % % 7.1 % Monocytes (%) (Auto) 1.2 % % 10.6 % Eosinophils (%) (Auto) 0.1 % % 0.7 % Basophils (%) (Auto) 0.1 % % 0.2 % Neutrophils # (Auto) 3.8 TH/MM3 TH/MM3 9.6 TH/MM3 Lymphocytes # (Auto) 0.2 TH/MM3 TH/MM3 0.8 TH/MM3 Monocytes # (Auto) 0.0 TH/MM3 TH/MM3 1.2 TH/MM3 Eosinophils # (Auto) 0.0 TH/MM3 TH/MM3 0.1 TH/MM3 Basophils # (Auto) 0.0 TH/MM3 TH/MM3 0.0 TH/MM3 CBC Comment DIFF FINAL AUTO DIFF DIFF FINAL Differential Comment FINAL DIFF MANUAL Differential Total Cells 100 Counted Neutrophils % (Manual) 70 % Band Neutrophils % 16 % Lymphocytes % 5 % Monocytes % 7 % Basophils % 2 % Neutrophils # (Manual) 13.4 TH/MM3 Platelet Estimate NORMAL Platelet Morphology Comment NORMAL Laboratory Tests Test 10/31/16 10/31/16 11/01/16 09:30 20:50 04:30 Sodium Level 131 MEQ/L 142 MEQ/L Potassium Level 3.8 MEQ/L 4.1 MEQ/L Chloride Level 94 MEQ/L 109 MEQ/L Carbon Dioxide Level 22.7 MEQ/L 24.4 MEQ/L Anion Gap 14 MEQ/L 9 MEQ/L Blood Urea Nitrogen 12 MG/DL 11 MG/DL Creatinine 1.41 MG/DL 0.99 MG/DL Estimat Glomerular Filtration 50 ML/MIN 76 ML/MIN Rate Random Glucose 192 MG/DL 89 MG/DL Lactic Acid Level 5.4 mmol/L 0.7 mmol/L 0.5 mmol/L Calcium Level 8.5 MG/DL 7.5 MG/DL Total Bilirubin 0.8 MG/DL 0.5 MG/DL Direct Bilirubin 0.3 MG/DL 0.2 MG/DL Indirect Bilirubin 0.5 MG/DL 0.3 MG/DL Aspartate Amino Transf 13 U/L 11 U/L (AST/SGOT) Alanine Aminotransferase 22 U/L 15 U/L (ALT/SGPT) Alkaline Phosphatase 62 U/L 43 U/L Troponin I LESS THAN 0.02 0.03 NG/ML NG/ML Total Protein 7.3 GM/DL 5.6 GM/DL Albumin 3.2 GM/DL 2.6 GM/DL Lipase 73 U/L Ammonia 17 MCMOL/L Total Creatine Kinase 147 U/L Phosphorus Level 2.9 MG/DL Magnesium Level 2.0 MG/DL Microbiology Date/Time Procedure Status Source Growth 10/31/16 12:10 Aerobic Blood Culture Resulted Blood Peripheral Pending 10/31/16 12:10 Anaerobic Blood Culture - Preliminary Resulted Gram Variable Lauro 10/31/16 12:15 Aerobic Blood Culture Resulted Blood Peripheral Pending 10/31/16 12:15 Anaerobic Blood Culture - Preliminary Resulted Gram Variable Lauro 11/01/16 04:40 Aerobic Blood Culture Received Blood Peripheral Pending 11/01/16 04:40 Anaerobic Blood Culture Received Blood Peripheral Pending 11/01/16 04:40 Aerobic Blood Culture Received Blood Peripheral Pending 11/01/16 04:40 Anaerobic Blood Culture Received Blood Peripheral Pending Imaging Chest X-Ray 10/31/16 1504 Signed Impressions: Service Date/Time: Monday, October 31, 2016 15:01 - CONCLUSION: Adequate placement of left jugular central line. Attila Whalen MD Abdomen/Pelvis CT 10/31/16 0916 Signed Impressions: Service Date/Time: Monday, October 31, 2016 11:13 - CONCLUSION: 1. Inflammatory changes are seen about the distal abdominal aorta. There is prominent stranding/hazy opacity in the para-aortic fat. These findings are new when compared to the prior CTA of 09/14/2016. Findings indicate periaortitis. Aortic diameter is within normal limits. There is a small amount of new gas within the aortic wall in this region. 2. Chronic colonic diverticula cyst. Damir Garcia MD Maxillofacial CT 10/31/16 0000 Signed Impressions: Service Date/Time: Monday, October 31, 2016 17:14 - CONCLUSION: No abscess/fluid collection. Attila Whalen MD Abdomen Ultrasound 10/31/16 0000 Signed Impressions: Service Date/Time: Monday, October 31, 2016 14:08 - CONCLUSION: Nonobstructing calculus versus angiomyolipoma in the lower pole of the right kidney. Abdominal ultrasound otherwise within normal limits. Damir Garcia MD Physical Exam GENERAL: Awakens easily, NAD SKIN: Warm and dry. No generalized rash or ecchymosis. No peripheral embolic lesions seen. HEENT: [place] conjunctivae, no petechia or hemorrhage. No scleral icterus. Moist oral mucosa. NECK: Trachea midline. No JVD or lymphadenopathy. Supple, nontender, no meningeal signs. CARDIOVASCULAR: Regular rate and rhythm without murmurs, gallops, or rubs. No murmur. Healed sternotomy incision. RESPIRATORY: Clear to auscultation. Breath sounds equal bilaterally. No wheezes , rales, or rhonchi. GASTROINTESTINAL: Abdomen soft, non-tender, nondistended. Bowel sounds are present and normoactive. No hepato-splenomegaly, or palpable masses. No guarding. No rebound. MUSCULOSKELETAL: Extremities without clubbing, cyanosis, or edema. No calf tenderness. 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
[2016-11-01] MEDS: THIAMINE INJ 100 MG in SODIUM CHLORIDE 0.9% INJ 100 ML IV SCH (09:30)
[2016-11-01] MEDS: ARTIFICIAL TEARS OPTH SOLN 15 ML BTL EACH EYE SCH ×3 (09:30→17:14)
[2016-11-01] MEDS: VANCOMYCIN INJ 1,250 MG in SODIUM CHLOR 0.9% 250 ML INJ 250 ML IV SCH ×2 (10:21→20:51)
[2016-11-01] MEDS: SENNOSIDES 8.6 MG TAB PO SCH (13:15)
[2016-11-01] MEDS: SODIUM CHLOR 0.9% 1000 ML INJ 1,000 ML IV SCH (13:15)
[2016-11-01 13:43] LABS: BICARBONATE 26.3 MEQ/L (21.0-32.0); POTASSIUM 3.7 MEQ/L (3.5-5.1)
--- NOTE | 2016-11-01 17:12 | PD.CAR.PN ---
CVT Progress Note Subjective/Hospital Course: Patient with abdominal pain and finding of periaortic inflammation in the distal aorta just above the bifurcation Patient also has a few small bubbles of air within the aortic wall has the consultation and fear of gas forming organisms in the aortic wall As noted in the consultation the most common pathogens are Staphylococcus and salmonella comprises about half of these cases and the rest this is a divided between gram-negative and gram-positive aerobes and anaerobes. In this particular situation patient is currently stable he is treated with antibiotics In the best case scenario this is going to resolve and long-term antibiotics will treat the condition permanently provided that the sources eliminate which in this case may be patient's dental abscess And worse case scenario patient would need resection of the abdominal aorta with axillobifemoral bypass which is quite an undertaking and carries with it high morbidity and significant mortality in the long run Therefore every effort should be made to treat this medically if possible It should be noted that patient is not a candidate for endovascular grafting for 2 reasons, the first one being that this is an infectious process and placing a stent is possible, but not recommended and the secondarily, patient had recently mental iliac stents placed precluding placement of an aortobifemoral stent graft Today patient is doing better abdomen is soft with few bowel sounds no rebound or guarding White count is normalized the left shift is resolving At this point patient is responding to antibiotics and this is exactly what we should continue The exam, history, and the medical decision-making described in the above note were completed. I reviewed and agree with the findings presented. I attest that I had a [id number] encounter with the patient on the same day, and personally performed and documented my assessment and findings in the medical record. Critical care time 35 minutes. Objective: Vital Signs Date Time Temp Pulse Resp B/P Pulse Ox O2 Delivery O2 Flow Rate FiO2 11/01/16 14:00 88 11/01/16 12:00 82 11/01/16 12:00 98.1 82 20 123/57 94 11/01/16 10:00 93 11/01/16 08:18 97 Nasal Cannula 4.00 11/01/16 08:00 99 11/01/16 08:00 98.5 99 26 166/78 92 11/01/16 06:00 83 11/01/16 04:00 98.9 78 19 104/61 98 11/01/16 04:00 78 2/26/17 02:00 75 11/01/16 00:00 89 11/01/16 00:00 98.4 89 20 90/52 89 10/31/16 22:00 86 10/31/16 20:00 76 10/31/16 20:00 98.5 76 26 99/55 96 10/31/16 19:40 94 Nasal Cannula 2.00 10/31/16 18:00 98.7 80 20 127/64 94 10/31/16 18:00 78 Labs: Laboratory Tests Test 11/01/16 13:00 Sodium Level 140 MEQ/L (136-145) Potassium Level 3.7 MEQ/L (3.5-5.1) Chloride Level 106 MEQ/L (98-107) Carbon Dioxide Level 26.3 MEQ/L (21.0-32.0) Anion Gap 8 MEQ/L (5-15) Blood Urea Nitrogen 10 MG/DL (7-18) Creatinine 0.92 MG/DL (0.60-1.30) Estimat Glomerular Filtration 83 ML/MIN (>89) Rate Random Glucose 106 MG/DL (74-106) Lactic Acid Level 0.8 mmol/L (0.4-2.0) Calcium Level 7.7 MG/DL (8.5-10.1) Result Diagram: 11/01/16 0430 11/01/16 1300 Tierra Cooper MD Nov 01, 2016 17:12
[2016-11-01] MEDS: PRAVASTATIN SOD 40 MG TAB PO SCH (20:51)
[2016-11-01] MEDS: MESALAMINE 1000 MG SUPP PR SCH (20:52)
[2016-11-01 22:16] LABS: HEMATOCRIT 24.6 % (39.0-51.0); MEAN CELL VOLUME 81.5 FL (80.0-100.0); MEAN CORPUSCULAR HEMOGLOBIN 27.2 PG (27.0-34.0); MEAN CORPUSCULAR HGB CONC 33.4 % (32.0-36.0); PLATELET COUNT 213 TH/MM3 (150-450); RED BLOOD COUNT 3.02 MIL/MM3 (4.50-5.90); RED CELL DISTRIBUTION WIDTH 15.6 % (11.6-17.2); REVIEW FLAG FINAL; WHITE BLOOD COUNT 10.4 TH/MM3 (4.0-11.0)
[2016-11-02] VITALS (14 sets, daily range): BP systolic 135–168; BP diastolic 65–84; PULSE 81–115; RESP 20–27; TEMP 98.5–99; O2SAT 92–100
[2016-11-02] MEDS: SENNOSIDES 8.6 MG TAB PO SCH ×3 (02:00→23:33)
[2016-11-02] MEDS: RESP: ALBUTEROL 2.5 MG/IPRATROPIUM 0.5 MG NEB (SCH) INH ×4 (03:53→20:57)
[2016-11-02] MEDS: CHLORHEXIDINE GLUCONATE 2 % 1 PACK (2 CLOTHS) TOP SCH ×2 (04:00→23:33)
[2016-11-02 04:12] LABS: AUTOMATED NEUTROPHIL # 7.6 TH/MM3 (1.8-7.7); BASOPHIL % 0.4 % (0.0-2.0); EOSINOPHIL # 0.1 TH/MM3 (0-0.4); EOSINOPHIL % 0.7 % (0.0-4.0); HEMATOCRIT 24.1 % (39.0-51.0); HEMO FLAGS DIFF FINAL; LYMPH % 9.8 % (9.0-44.0); LYMPHOCYTE # 0.9 TH/MM3 (1.0-4.8); MEAN CELL VOLUME 81.5 FL (80.0-100.0); MEAN CORPUSCULAR HEMOGLOBIN 27.2 PG (27.0-34.0); MEAN CORPUSCULAR HGB CONC 33.3 % (32.0-36.0); MONO % 10.1 % (0.0-8.0); PLATELET COUNT 216 TH/MM3 (150-450); RED BLOOD COUNT 2.95 MIL/MM3 (4.50-5.90); RED CELL DISTRIBUTION WIDTH 15.1 % (11.6-17.2); WHITE BLOOD COUNT 9.6 TH/MM3 (4.0-11.0)
[2016-11-02 04:33] LABS: ALT (GPT) 14 U/L (12-78); ANION GAP 8 MEQ/L (5-15); AST (GOT) 12 U/L (15-37); BICARBONATE 24.4 MEQ/L (21.0-32.0); BLOOD UREA NITROGEN 7 MG/DL (7-18); CHLORIDE 109 MEQ/L (98-107); GLOMERULAR FILTRATION RATE 80 ML/MIN (>89); POTASSIUM 3.3 MEQ/L (3.5-5.1); SODIUM (NA) 141 MEQ/L (136-145)
[2016-11-02 04:35] LABS: ALKALINE PHOSPHATASE 43 U/L (45-117); CREATINE KINASE 110 U/L (39-308); TOTAL BILIRUBIN ADULT 0.3 MG/DL (0.2-1.0)
[2016-11-02] MEDS: PIPERACIL-TAZO 4.5 GM PREMIX 100 ML IV SCH ×4 (04:56→23:30)
[2016-11-02] MEDS: SODIUM CHLOR 0.9% 1000 ML INJ 1,000 ML IV SCH ×3 (04:59→23:33)
[2016-11-02] MEDS: INSULIN NovoLIN REGULAR SUPPLEMENTAL SCALE SQ SCH ×4 (07:00→20:43)
[2016-11-02] MEDS: MESALAMINE HD 800 MG DELAYED RELEASE TAB PO SCH ×2 (08:29→20:40)
[2016-11-02] MEDS: LACTULOSE SYRUP 20 GM/30 ML CUP PO SCH ×4 (08:29→20:41)
[2016-11-02] MEDS: POLYETHYLENE GLYCOL 17 GM PKG PO SCH ×2 (08:29→20:42)
[2016-11-02] MEDS: PANTOPRAZOLE SODIUM 40 MG VIAL IV SCH (08:29)
[2016-11-02] MEDS: DOCUSATE SODIUM 100 MG CAP PO SCH ×2 (08:29→20:41)
[2016-11-02] MEDS: THIAMINE INJ 100 MG in SODIUM CHLORIDE 0.9% INJ 100 ML IV SCH (08:29)
[2016-11-02] MEDS: MULTIVITAMIN TAB PO SCH (08:30)
[2016-11-02] MEDS: FOLIC ACID 1 MG TAB PO SCH (08:30)
[2016-11-02] MEDS: SODIUM CHLORIDE 0.9% FLUSH 5 ML FLUSH IVF SCH (09:00)
[2016-11-02] MEDS: SODIUM CHLORIDE 0.9% FLUSH 5 ML FLUSH IV FLUSH SCH ×2 (09:00→20:41)
[2016-11-02] MEDS: ARTIFICIAL TEARS OPTH SOLN 15 ML BTL EACH EYE SCH ×3 (09:00→17:38)
[2016-11-02] MEDS ORDERED: LORazepam 2 MG/ML VIAL ONE (09:43)
[2016-11-02] MEDS: ACETAMINOPHEN/HYDROcodone 325 MG/5 MG TAB PO PRN (09:47)
--- NOTE | 2016-11-02 11:07 | HHI.CCPN ---
Subjective Remarks/Hospital Course 66-year-old male. Date of admission 10/31/2016. Past medical history includes peripheral vascular disease, peripheral arterial disease, CABG 3/MVR, Ulcerative Colitis, Hypertension, Dyslipidemia, Coronary Disease, History of TIA , Tobaccoism Prior, THC and EtOH Use. Patient has a history of a known dental abscess lower jaw 6 weeks. Patient presents to [place] ED with a 5 day history of fatigue, fevers, nausea vomiting abdominal pain. CT chest revealed inflammation of the distal abdominal aorta stranding with gas in the wall of the aorta likely indicating aortitis. Incidentally noted was a 2.6 cm duodenal diverticuli at the head of the pancreas. Initially the patient was hypertensive with a normal white blood cell count. Patient deteriorated requiring 4 L normal saline placement of central line with flexion of 5.4. Status post surgery was asked to see. Currently recommending conservative management with antibiotics with possible repaired future. Patient is currently resting very complaining of abdominal pain. CT maxillofacial pending. Subjective 11/01: Resting currently in bed. Currently afebrile. Major complaint is constipation. No bowel movement 5 days according to patient. Abdomen less tender today. Tolerating diet. 11/02: Patient alert and oriented, appearing slightly anxious this morning. The patient had 3 bowel movements last night. The patient denies abdominal tenderness at this time. The patient is noted to be hypertensive BP 186/102, sinus tachycardia 107. Patient has a history of EtOH use normally 3-4 whiskeys a day, HC last drank on Wednesday. The patient's concerns are his anxiety, and inability to sleep last evening. Objective Vital Signs Date Time Temp Pulse Resp B/P Pulse Ox O2 Delivery O2 Flow Rate FiO2 11/02/16 10:00 81 11/02/16 08:02 98.6 23 166/77 100 11/01/16 22:27 Nasal Cannula 4.00 Intake and Output 11/01/16 11/01/16 11/02/16 08:00 16:00 00:00 Intake Total 1246 ml 1530 ml 1132 ml Output Total 775 ml 350 ml 400 ml Balance 471 ml 1180 ml 732 ml Result Diagram: 11/02/16 0356 11/02/16 0356 Imaging Last Impressions Chest X-Ray 10/31/16 1508 Signed Impressions: Service Date/Time: Monday, October 31, 2016 15:01 - CONCLUSION: Adequate placement of left jugular central line. Attila Whalen MD Abdomen/Pelvis CT 10/31/16 0916 Signed Impressions: Service Date/Time: Monday, October 31, 2016 11:13 - CONCLUSION: 1. Inflammatory changes are seen about the distal abdominal aorta. There is prominent stranding/hazy opacity in the para-aortic fat. These findings are new when compared to the prior CTA of 09/14/2016. Findings indicate periaortitis. Aortic diameter is within normal limits. There is a small amount of new gas within the aortic wall in this region. 2. Chronic colonic diverticula cyst. Damir Garcia MD Maxillofacial CT 10/31/16 0000 Signed Impressions: Service Date/Time: Monday, October 31, 2016 17:14 - CONCLUSION: No abscess/fluid collection. Attila Whalen MD Abdomen Ultrasound 10/31/16 0000 Signed Impressions: Service Date/Time: Monday, October 31, 2016 14:08 - CONCLUSION: Nonobstructing calculus versus angiomyolipoma in the lower pole of the right kidney. Abdominal ultrasound otherwise within normal limits. Damir Garcia MD Objective Remarks GENERAL: 66-year-old male, critically ill currently resting in bed in no acute distress SKIN: Warm and dry. No rash HEAD: Atraumatic. Normocephalic. EYES: Pupils equal and round around 3 mm bilaterally and reactive. No scleral icterus. No injection or drainage. ENT: No nasal bleeding or discharge. Mucous membranes pink and moist. Oropharynx without erythema NECK: Trachea midline. No JVD. CARDIOVASCULAR: Regular rate and rhythm. S1, S2. No S4 without murmur RESPIRATORY: Clear to auscultation. Breath sounds equal bilaterally. GASTROINTESTINAL: Abdomen soft, tender to palpation periumbilical to suprapubic. Currently minimal voluntary guarding. No rigidity. Hypoactive bowel sounds. MUSCULOSKELETAL: Extremities without significant peripheral edema. No obvious deformities. NEUROLOGICAL: Awake and alert. No obvious cranial nerve deficits. Motor grossly within normal limits. Five out of 5 muscle strength in the arms and legs. Normal speech. PSYCHIATRIC: Appropriate mood and affect; insight and judgment normal. Date of Insertion: Oct 31, 2016 Line: Central Venous Catheter Side: Left Location: Internal, Jugular A/P Assessment and Plan Neuro/Psych: History of EtOH THC use History of TIA 2010 Insomnia Acetaminophen for fever [place]/morphine as needed for pain management Vitamin bag daily 3 days for EtOH use switch to thiamine/folate and multivitamin daily. Last use Wednesday according to patient. Monitor for DTs. No history of withdrawal seizures per patient Will provide Ativan PRN, 1 mg IV now Melatonin 5 mg daily at bedtime when necessary CV: Peripheral arterial disease Peripheral vascular disease History of bilateral iliac stents History of left carotid endarterectomy History of CABG 11/04 with mitral valve replacement Hypertension Dyslipidemia Severe sepsis Claudication Lactic acidosis Status post 4 L normal saline in ED. Norepi discontinued 11/01 Maintain MAP greater than 65mmHg Holding lisinopril 20 mg by mouth twice a day in light of hypotension Resume metoprolol 12.5 mg twice a day in light of hypotension Okay to continue lovastatin 80 mg by mouth at bedtime for dyslipidemia Holding Pletal 50 mg twice a day and Plavix 75 mg daily in light of possible intervention. Discussed with Dr. Allison Dominguez Noted area and wall of aorta on CT with periaortic fat stranding indicative inflammatory type changes likely aortitis. See consult note from vascular. No immediate need for intervention at this time. Likely in future Echo 10/31 EF 55-60%. Calcified mitral valve. Trace regurg. Trace tricuspid regurg. NI 38 mmHg. No signs of endocarditis Resp: Tobaccoism Nasal cannula to maintain saturations greater than or equal to 92% Incentive spirometry while awake Chest x-ray reveals no acute cardio pulmonary findings Tobacco cessation encouraged. GI: History of ulcerative colitis/IBD Constipation Colonic diverticular cyst Continue Asacol 800 mg twice a day and Canasa 1000 mg at night for ulcerative colitis Clear liquid diet. Advance as tolerated Protonix for GI prophylaxis. On Protonix 40 mg daily at home Colace/ Senokot/MiraLAX twice a day for bowel regimen. Discontinue lactulose hold bowel regimen CT abdomen/pelvis revealed no obstructive process his bowels. Positive diverticular cyst near pancreas. Chronic. : History of BPH Sesay if indicated for accurate I's nose any critically ill patient Prostate 4.[address] abdomen/pelvis Endo: Hyperglycemia likely critical illness Sliding-scale insulin to maintain euglycemia. Accu-Cheks before meals/at bedtime/low regimen Renal: Acute kidney injury creatinine currently 1.4 Accurate I/Os Monitor urine output Status post 4 L and normal saline ED. Recheck BMP at 2000 Currently normal saline at 84 cc an hour Heme: Leukocytosis Anemia Currently no indication for transfusion of blood products Follow-up on CBC hemoglobin currently 7.7. ID: Aortitis Possible dental abscess Empirically placed on vancomycin/Zosyn for aortitis day #3 Vascular surgery/Dr. Cooper seen. Please see his note. Currently plan for antibiotic coverage with possible repair in the future. To be determined. Blood cultures 2 10/31 and 11/01 pending. UA revealed no acute findings CT maxillofacial revealed no dental abscess ID consult for antibiotic management MSK: PT evaluate and treat FEN: Hyponatremia - resolved Recheck BMP in a.m. Replace electrolytes as clinically indicated Access - Left IJ CVL day #3 Prophylaxis - GI - Protonix - DVT - SCD/holding pharmacological prophylaxis. Resume when okay with vascular surgery Critical Care: The total care time was 37 minutes. Time to perform other separately billable procedures was not included in the critical care time. Physician Venecia Warner MD Nov 02, 2016 11:07
[2016-11-02] MEDS: VANCOMYCIN INJ 1,250 MG in SODIUM CHLOR 0.9% 250 ML INJ 250 ML IV SCH ×2 (12:37→23:30)
--- NOTE | 2016-11-02 16:09 | PD.CAR.PN ---
CVT Progress Note Subjective/Hospital Course: Patient with abdominal pain and finding of periaortic inflammation in the distal aorta just above the bifurcation Patient also has a few small bubbles of air within the aortic wall has the consultation and fear of gas forming organisms in the aortic wall As noted in the consultation the most common pathogens are Staphylococcus and salmonella comprises about half of these cases and the rest this is a divided between gram-negative and gram-positive aerobes and anaerobes. In this particular situation patient is currently stable he is treated with antibiotics In the best case scenario this is going to resolve and long-term antibiotics will treat the condition permanently provided that the sources eliminate which in this case may be patient's dental abscess And worse case scenario patient would need resection of the abdominal aorta with axillobifemoral bypass which is quite an undertaking and carries with it high morbidity and significant mortality in the long run Therefore every effort should be made to treat this medically if possible It should be noted that patient is not a candidate for endovascular grafting for 2 reasons, the first one being that this is an infectious process and placing a stent is possible, but not recommended and the secondarily, patient had recently mental iliac stents placed precluding placement of an aortobifemoral stent graft Today patient is doing better abdomen is soft with few bowel sounds no rebound or guarding White count is normalized the left shift is resolving At this point patient is responding to antibiotics and this is exactly what we should continue The exam, history, and the medical decision-making described in the above note were completed. I reviewed and agree with the findings presented. I attest that I had a [id number] encounter with the patient on the same day, and personally performed and documented my assessment and findings in the medical record. Critical care time 35 minutes. 11/02/16 Patient is greatly improved abdomen is soft with active bowel sounds and sepsis has resolved Hyperdynamic state has abated and patient is better Would continue antibiotic therapy and a repeat CAT scan of abdomen and pelvis with IV contrast probably by the end of this week which should show significant resolution of inflammatory changes and the aorta Patient will need to be on long-term antibiotics for about 6 weeks and then we can rescan him again If patient remains asymptomatic nothing will need to be done on the other hand the patient still has inflammatory changes of the aorta and he clinically worsens then the only option would be resection of the abdominal aorta with axillobifemoral bypass. Cadaveric aortic graft placement is another option in this patient's but this would be associated with high risk of complications especially with the common iliac stents right up there by the aortic bifurcation Objective: Vital Signs Date Time Temp Pulse Resp B/P Pulse Ox O2 Delivery O2 Flow Rate FiO2 11/02/16 14:00 81 11/02/16 12:00 98.5 97 23 168/79 100 11/02/16 12:00 81 11/02/16 11:07 95 Nasal Cannula 4.00 11/02/16 10:00 81 11/02/16 08:02 98.6 86 23 166/77 100 11/02/16 08:00 81 11/02/16 06:00 92 11/02/16 04:00 98.6 89 23 144/79 100 11/02/16 04:00 89 11/02/16 02:00 88 11/02/16 00:00 91 11/02/16 00:00 99.0 91 20 135/72 93 11/01/16 22:27 94 Nasal Cannula 4.00 11/01/16 22:00 86 11/01/16 20:00 98.8 107 27 129/65 93 11/01/16 20:00 107 11/01/16 18:00 60 Result Diagram: 11/02/16 0356 11/02/16 0356 Tierra Cooper MD Nov 02, 2016 16:09
[2016-11-02] MEDS ORDERED: POTASSIUM PHOSPHATE INJ 30 MMOL in SODIUM CHLOR 0.9% 250 ML INJ 250 ML IV PRN (20:30)
[2016-11-02] MEDS ORDERED: MAGNESIUM OXIDE 400 MG TAB PO PRN (20:30)
[2016-11-02] MEDS ORDERED: METOPROLOL TARTRATE 5 MG/5 ML VIAL IV PUSH PRN (20:30)
[2016-11-02] MEDS ORDERED: MAGNESIUM SULFATE INJ 4 GM in SODIUM CHLORIDE 0.9% INJ 92 ML IV PRN (20:30)
[2016-11-02] MEDS ORDERED: POTASSIUM CHLOR 20 MEQ PREMIX 100 ML IV PRN ×2 (20:30)
[2016-11-02] MEDS ORDERED: POTASSIUM PHOSPHATE MONOBASIC 500 MG TAB PO PRN (20:30)
[2016-11-02] MEDS ORDERED: POTASSIUM CHLOR 40 MEQ PREMIX 100 ML IV PRN ×2 (20:30)
[2016-11-02] MEDS ORDERED: PILL SPLITTER OTHER PRN (20:30)
[2016-11-02] MEDS ORDERED: POTASSIUM PHOSPHATE MONOBASIC 500 MG TAB PO/TUBE PRN (20:30)
[2016-11-02] MEDS ORDERED: POTASSIUM CL 40 MEQ/30 ML LIQ UDC PO/TUBE PRN ×2 (20:30)
[2016-11-02] MEDS ORDERED: SODIUM PHOSPHATE INJ 30 MMOL in SODIUM CHLOR 0.9% 250 ML INJ 240 ML IV PRN (20:30)
[2016-11-02] MEDS ORDERED: MAGNESIUM SULFATE INJ 2 GM in SODIUM CHLORIDE 0.9% INJ 96 ML IV PRN (20:30)
[2016-11-02] MEDS: PRAVASTATIN SOD 40 MG TAB PO SCH (20:40)
[2016-11-02] MEDS: MELATONIN 5 MG TAB PO PRN (20:40)
[2016-11-02] MEDS: LISINOPRIL 20 MG TAB PO SCH (20:40)
[2016-11-02] MEDS: METOPROLOL TARTRATE 25 MG TAB PO SCH (20:41)
[2016-11-02] MEDS: MESALAMINE 1000 MG SUPP PR SCH (20:43)
[2016-11-02] MEDS ORDERED: PHARMACY ORDERED LAB XX ONE (21:45)
[2016-11-02 23:14] LABS: VANCOMYCIN TROUGH 20.3 MCG/ML (5.0-10.0)
[2016-11-03] VITALS (14 sets, daily range): BP systolic 136–172; BP diastolic 65–90; PULSE 80–103; RESP 23–28; TEMP 98.2–98.9; O2SAT 90–99
[2016-11-03] MEDS: RESP: ALBUTEROL 2.5 MG/IPRATROPIUM 0.5 MG NEB (SCH) INH ×4 (04:00→21:55)
[2016-11-03] MEDS: PIPERACIL-TAZO 4.5 GM PREMIX 100 ML IV SCH ×4 (04:26→22:16)
[2016-11-03] MEDS: INSULIN NovoLIN REGULAR SUPPLEMENTAL SCALE SQ SCH ×4 (06:49→20:04)
[2016-11-03] MEDS: CILOSTAZOL 50 MG TAB PO SCH ×2 (07:32→17:03)
[2016-11-03 08:26] LABS: ALT (GPT) 17 U/L (12-78); ANION GAP 8 MEQ/L (5-15); AST (GOT) 14 U/L (15-37); BICARBONATE 26.8 MEQ/L (21.0-32.0); BLOOD UREA NITROGEN 6 MG/DL (7-18); CHLORIDE 105 MEQ/L (98-107); GLOMERULAR FILTRATION RATE 81 ML/MIN (>89); POTASSIUM 3.7 MEQ/L (3.5-5.1); SODIUM (NA) 140 MEQ/L (136-145)
[2016-11-03 08:28] LABS: ALKALINE PHOSPHATASE 45 U/L (45-117); TOTAL BILIRUBIN ADULT 0.4 MG/DL (0.2-1.0)
[2016-11-03] MEDS: PANTOPRAZOLE SODIUM 40 MG VIAL IV SCH (08:38)
[2016-11-03] MEDS: LISINOPRIL 20 MG TAB PO SCH ×2 (08:38→19:56)
[2016-11-03] MEDS: FOLIC ACID 1 MG TAB PO SCH (08:39)
[2016-11-03] MEDS: MESALAMINE HD 800 MG DELAYED RELEASE TAB PO SCH ×2 (08:39→19:59)
[2016-11-03] MEDS: MULTIVITAMIN TAB PO SCH (08:39)
[2016-11-03] MEDS: POLYETHYLENE GLYCOL 17 GM PKG PO SCH ×2 (08:39→19:58)
[2016-11-03] MEDS: METOPROLOL TARTRATE 25 MG TAB PO SCH ×2 (08:39→19:57)
[2016-11-03] MEDS: LACTULOSE SYRUP 20 GM/30 ML CUP PO SCH ×4 (08:39→19:58)
[2016-11-03] MEDS: DOCUSATE SODIUM 100 MG CAP PO SCH ×2 (08:39→19:58)
[2016-11-03] MEDS: ARTIFICIAL TEARS OPTH SOLN 15 ML BTL EACH EYE SCH ×3 (08:40→18:00)
[2016-11-03] MEDS: THIAMINE INJ 100 MG in SODIUM CHLORIDE 0.9% INJ 100 ML IV SCH (08:41)
[2016-11-03] MEDS: SODIUM CHLORIDE 0.9% FLUSH 5 ML FLUSH IVF SCH (09:00)
[2016-11-03] MEDS: SODIUM CHLORIDE 0.9% FLUSH 5 ML FLUSH IV FLUSH SCH ×2 (09:00→19:57)
--- NOTE | 2016-11-03 10:53 | HHI.IDPN ---
Subjective Subjective Remarks Notes reviewed Temps normal BP ok, not on pressors Abdominal pain better Having frequent loose stools No N/V No rash or itching BC (+) gram variable lauro in anaerobic bottle WBC better Creatinine down to normal ESR >140 Antibiotics Vancomycin Zosyn Lines Central line LIJ - 10/31 Past Medical History Ulcerative colitis Peripheral vascular disease THC use Tobaccoism Coronary artery disease Hypertension Dyslipidemia History of claudication ETOH use Gastric ulcer, previous GIB Past Surgical History Bilateral lower extremity iliac stents Left carotid endarterectomy 2010 CABG 3 2001 CABG 1, MV ring annuloplasty 2009 Allergies: Coded Allergies: MRI PRECAUTION (Verified Allergy, Severe, PACEMAKER LEAD PER DR MARTINEZ - 08/01/2010 KMD, 10/31/16) Nitrates (Verified Allergy, Severe, Hypotension, 10/31/16) Objective . Vital Signs Date Time Temp Pulse Resp B/P Pulse Ox O2 Delivery O2 Flow Rate FiO2 11/03/16 10:00 86 11/03/16 09:46 98 Nasal Cannula 4.00 11/03/16 08:00 98.7 84 27 155/87 92 11/03/16 08:00 97 11/03/16 06:00 97 11/03/16 04:00 98.7 87 23 136/65 95 11/03/16 04:00 87 11/03/16 02:00 92 11/03/16 00:00 98 11/03/16 00:00 98.8 98 26 145/82 90 11/02/16 22:00 115 11/02/16 20:57 95 Nasal Cannula 4.00 11/02/16 20:00 113 11/02/16 20:00 98.7 113 27 158/84 92 11/02/16 16:00 102 11/02/16 16:00 98.8 102 20 141/65 93 11/02/16 14:00 81 11/02/16 12:00 98.5 97 23 168/79 100 11/02/16 12:00 81 11/02/16 11:07 95 Nasal Cannula 4.00 11/02/16 11/02/16 11/03/16 15:00 23:00 07:00 Intake Total 1200 ml 965 ml 924 ml Output Total 450 ml 400 ml 300 ml Balance 750 ml 565 ml 624 ml Intake Oral 350 ml 350 ml 350 ml IV Total 850 ml 615 ml 574 ml Output Urine Total 450 ml 400 ml 300 ml # Voids 3 # Bowel Movements 4 1 3 . Laboratory Tests Test 11/01/16 11/02/16 21:54 03:56 White Blood Count 10.4 TH/MM3 9.6 TH/MM3 Red Blood Count 3.02 MIL/MM3 2.95 MIL/MM3 Hemoglobin 8.2 GM/DL 8.0 GM/DL Hematocrit 24.6 % 24.1 % Mean Corpuscular Volume 81.5 FL 81.5 FL Mean Corpuscular Hemoglobin 27.2 PG 27.2 PG Mean Corpuscular Hemoglobin 33.4 % 33.3 % Concent Red Cell Distribution Width 15.6 % 15.1 % Platelet Count 213 TH/MM3 216 TH/MM3 Mean Platelet Volume 8.4 FL 8.4 FL Neutrophils (%) (Auto) 79.0 % Lymphocytes (%) (Auto) 9.8 % Monocytes (%) (Auto) 10.1 % Eosinophils (%) (Auto) 0.7 % Basophils (%) (Auto) 0.4 % Neutrophils # (Auto) 7.6 TH/MM3 Lymphocytes # (Auto) 0.9 TH/MM3 Monocytes # (Auto) 1.0 TH/MM3 Eosinophils # (Auto) 0.1 TH/MM3 Basophils # (Auto) 0.0 TH/MM3 CBC Comment DIFF FINAL Differential Comment Erythrocyte Sedimentation Rate GREATER THAN 140 mm/hr Laboratory Tests Test 11/01/16 11/01/16 11/02/16 11/02/16 13:00 21:54 03:56 22:00 Sodium Level 140 MEQ/L 141 MEQ/L Potassium Level 3.7 MEQ/L 3.3 MEQ/L Chloride Level 106 MEQ/L 109 MEQ/L Carbon Dioxide Level 26.3 MEQ/L 24.4 MEQ/L Anion Gap 8 MEQ/L 8 MEQ/L Blood Urea Nitrogen 10 MG/DL 7 MG/DL Creatinine 0.92 MG/DL 0.95 MG/DL Estimat Glomerular Filtration 83 ML/MIN 80 ML/MIN Rate Random Glucose 106 MG/DL 115 MG/DL Lactic Acid Level 0.8 mmol/L 1.2 mmol/L 1.1 mmol/L Calcium Level 7.7 MG/DL 8.2 MG/DL Phosphorus Level 2.4 MG/DL 2.4 MG/DL Magnesium Level 2.0 MG/DL Total Bilirubin 0.3 MG/DL Aspartate Amino Transf 12 U/L (AST/SGOT) Alanine Aminotransferase 14 U/L (ALT/SGPT) Alkaline Phosphatase 43 U/L Total Creatine Kinase 110 U/L C-Reactive Protein 13.60 MG/DL Total Protein 5.8 GM/DL Albumin 2.5 GM/DL Test 11/03/16 07:30 Sodium Level 140 MEQ/L Potassium Level 3.7 MEQ/L Chloride Level 105 MEQ/L Carbon Dioxide Level 26.8 MEQ/L Anion Gap 8 MEQ/L Blood Urea Nitrogen 6 MG/DL Creatinine 0.94 MG/DL Estimat Glomerular Filtration 81 ML/MIN Rate Random Glucose 97 MG/DL Calcium Level 8.2 MG/DL Total Bilirubin 0.4 MG/DL Aspartate Amino Transf 14 U/L (AST/SGOT) Alanine Aminotransferase 17 U/L (ALT/SGPT) Alkaline Phosphatase 45 U/L Total Protein 6.0 GM/DL Albumin 2.5 GM/DL Microbiology Date/Time Procedure Status Source Growth 10/31/16 12:10 Aerobic Blood Culture - Preliminary Resulted Blood Peripheral NO GROWTH IN 2 DAYS 10/31/16 12:10 Anaerobic Blood Culture - Preliminary Resulted Gram Variable Lauro 10/31/16 12:15 Aerobic Blood Culture - Preliminary Resulted Blood Peripheral NO GROWTH IN 2 DAYS 10/31/16 12:15 Anaerobic Blood Culture - Preliminary Resulted Gram Variable Lauro 11/01/16 04:40 Aerobic Blood Culture - Preliminary Resulted Blood Peripheral NO GROWTH IN 1 DAY 11/01/16 04:40 Anaerobic Blood Culture - Preliminary Resulted Blood Peripheral NO GROWTH IN 1 DAY 11/01/16 04:40 Aerobic Blood Culture - Preliminary Resulted Blood Peripheral NO GROWTH IN 1 DAY 11/01/16 04:40 Anaerobic Blood Culture - Preliminary Resulted Blood Peripheral NO GROWTH IN 1 DAY 11/02/16 05:46 Aerobic Blood Culture Received Blood Peripheral Pending 11/02/16 05:46 Anaerobic Blood Culture Received Blood Peripheral Pending Imaging Chest X-Ray 10/31/16 1508 Signed Impressions: Service Date/Time: Monday, October 31, 2016 15:01 - CONCLUSION: Adequate placement of left jugular central line. Attila Whalen MD Abdomen/Pelvis CT 10/31/16 0916 Signed Impressions: Service Date/Time: Monday, October 31, 2016 11:13 - CONCLUSION: 1. Inflammatory changes are seen about the distal abdominal aorta. There is prominent stranding/hazy opacity in the para-aortic fat. These findings are new when compared to the prior CTA of 09/14/2016. Findings indicate periaortitis. Aortic diameter is within normal limits. There is a small amount of new gas within the aortic wall in this region. 2. Chronic colonic diverticula cyst. Damir Garcia MD Maxillofacial CT 10/31/16 0000 Signed Impressions: Service Date/Time: Monday, October 31, 2016 17:14 - CONCLUSION: No abscess/fluid collection. Attila Whalen MD Abdomen Ultrasound 10/31/16 0000 Signed Impressions: Service Date/Time: Monday, October 31, 2016 14:08 - CONCLUSION: Nonobstructing calculus versus angiomyolipoma in the lower pole of the right kidney. Abdominal ultrasound otherwise within normal limits. Damir Garcia MD Physical Exam GENERAL: Awake and alert, NAD SKIN: Warm and dry. No generalized rash or ecchymosis. No peripheral embolic lesions seen. HEENT: [place] conjunctivae, no petechia or hemorrhage. No scleral icterus. Moist oral mucosa. NECK: Supple, nontender, no meningeal signs. CARDIOVASCULAR: Regular rate and rhythm without murmurs, gallops, or rubs. No murmur. Healed sternotomy incision. RESPIRATORY: Clear to auscultation. Breath sounds equal bilaterally. No wheezes , rales, or rhonchi. GASTROINTESTINAL: Abdomen soft, non-tender, slightly distended. Bowel sounds are present and normoactive. No hepato-splenomegaly, or palpable masses. No guarding. No rebound. MUSCULOSKELETAL: Extremities without clubbing, cyanosis, or edema. No calf tenderness. NEUROLOGICAL: Grossly non-focal PSYCH: Normal affect, calm and cooperative LINE: Central line with no evidence of infection, placed 10/31 Assessment & Plan Remarks IMPRESSION Sepsis on presentation (+) BC with Gram variable lauro Periaortitis in distal aorta - had dental infection and GIB around same time early September 2016 - had EGD and colonoscopy September 2016 - was supposed to get dental extraction, but patient did not show up for his appointment, no symptoms currently Hx CAD, S/P CABG and MV ring annuloplasty PVD RECOMMENDATION Continue Vanco Continue Zosyn Follow C/S Get baseline inflammatory markers Await echo result Repeat CT A/P later this week per vascular Monitor temps Monitor progress Explained plan to patient Naheed Watkins MD Nov 03, 2016 10:53
[2016-11-03] MEDS: SENNOSIDES 8.6 MG TAB PO SCH (14:00)
[2016-11-03] MEDS ORDERED: LORazepam 2 MG/ML VIAL IV PUSH PRN (16:15)
--- NOTE | 2016-11-03 16:25 | HHI.CCPN ---
Subjective Remarks/Hospital Course 66-year-old male. Date of admission 10/31/2016. Past medical history includes peripheral vascular disease, peripheral arterial disease, CABG 3/MVR, Ulcerative Colitis, Hypertension, Dyslipidemia, Coronary Disease, History of TIA , Tobaccoism Prior, THC and EtOH Use. Patient has a history of a known dental abscess lower jaw 6 weeks. Patient presents to [place] ED with a 5 day history of fatigue, fevers, nausea vomiting abdominal pain. CT chest revealed inflammation of the distal abdominal aorta stranding with gas in the wall of the aorta likely indicating aortitis. Incidentally noted was a 2.6 cm duodenal diverticuli at the head of the pancreas. Initially the patient was hypertensive with a normal white blood cell count. Patient deteriorated requiring 4 L normal saline placement of central line with flexion of 5.4. Status post surgery was asked to see. Currently recommending conservative management with antibiotics with possible repaired future. Patient is currently resting very complaining of abdominal pain. CT maxillofacial pending. Subjective 11/01: Resting currently in bed. Currently afebrile. Major complaint is constipation. No bowel movement 5 days according to patient. Abdomen less tender today. Tolerating diet. 11/02: Patient alert and oriented, appearing slightly anxious this morning. The patient had 3 bowel movements last night. The patient denies abdominal tenderness at this time. The patient is noted to be hypertensive BP 186/102, sinus tachycardia 107. Patient has a history of EtOH use normally 3-4 whiskeys a day, HC last drank on Wednesday. The patient's concerns are his anxiety, and inability to sleep last evening. 11/03: Afebrile. Patient normotensive overnight. Received only the one dose of Ativan and 24hrs. patient denies any abdominal pain. Patient received melatonin last night, insomnia resolved. Patient tolerating clear liquid diet will advance to regular diet today. Objective Vital Signs Date Time Temp Pulse Resp B/P Pulse Ox O2 Delivery O2 Flow Rate FiO2 11/03/16 16:00 93 11/03/16 12:00 98.7 27 172/90 92 11/03/16 09:46 Nasal Cannula 4.00 Intake and Output 11/02/16 11/02/16 11/03/16 08:00 16:00 00:00 Intake Total 1118 ml 1200 ml 965 ml Output Total 400 ml 450 ml 400 ml Balance 718 ml 750 ml 565 ml Result Diagram: 11/02/16 0356 11/03/16 0730 Imaging Last Impressions Chest X-Ray 10/31/16 1508 Signed Impressions: Service Date/Time: Monday, October 31, 2016 15:01 - CONCLUSION: Adequate placement of left jugular central line. Attila Whalen MD Abdomen/Pelvis CT 10/31/16 0916 Signed Impressions: Service Date/Time: Monday, October 31, 2016 11:13 - CONCLUSION: 1. Inflammatory changes are seen about the distal abdominal aorta. There is prominent stranding/hazy opacity in the para-aortic fat. These findings are new when compared to the prior CTA of 09/14/2016. Findings indicate periaortitis. Aortic diameter is within normal limits. There is a small amount of new gas within the aortic wall in this region. 2. Chronic colonic diverticula cyst. Damir Garcia MD Maxillofacial CT 10/31/16 0000 Signed Impressions: Service Date/Time: Monday, October 31, 2016 17:14 - CONCLUSION: No abscess/fluid collection. Attila Whalen MD Abdomen Ultrasound 10/31/16 0000 Signed Impressions: Service Date/Time: Monday, October 31, 2016 14:08 - CONCLUSION: Nonobstructing calculus versus angiomyolipoma in the lower pole of the right kidney. Abdominal ultrasound otherwise within normal limits. Damir Garcia MD Objective Remarks GENERAL: 66-year-old male, critically ill currently resting in bed in no acute distress SKIN: Warm and dry. No rash HEAD: Atraumatic. Normocephalic. EYES: Pupils equal and round around 3 mm bilaterally and reactive. No scleral icterus. No injection or drainage. ENT: No nasal bleeding or discharge. Mucous membranes pink and moist. Oropharynx without erythema NECK: Trachea midline. No JVD. CARDIOVASCULAR: Regular rate and rhythm. S1, S2. No S4 without murmur RESPIRATORY: Clear to auscultation. Breath sounds equal bilaterally. GASTROINTESTINAL: Abdomen soft, tender to palpation periumbilical to suprapubic. Currently minimal voluntary guarding. No rigidity. Hypoactive bowel sounds. MUSCULOSKELETAL: Extremities without significant peripheral edema. No obvious deformities. NEUROLOGICAL: Awake and alert. No obvious cranial nerve deficits. Motor grossly within normal limits. Five out of 5 muscle strength in the arms and legs. Normal speech. PSYCHIATRIC: Appropriate mood and affect; insight and judgment normal. Date of Insertion: Oct 31, 2016 Line: Central Venous Catheter Side: Left Location: Internal, Jugular A/P Assessment and Plan Neuro/Psych: History of EtOH THC use History of TIA 2010 Insomnia Acetaminophen for fever [place]/morphine as needed for pain management Vitamin bag daily 3 days for EtOH use switch to thiamine/folate and multivitamin daily. Last use Wednesday according to patient. Monitor for DTs. No history of withdrawal seizures per patient Ativan 2 mg every 4 hours PRN, for agitation Melatonin 5 mg daily at bedtime PRN CV: Peripheral arterial disease Peripheral vascular disease History of bilateral iliac stents History of left carotid endarterectomy History of CABG 11/04 with mitral valve replacement Hypertension Dyslipidemia Severe sepsis Claudication Lactic acidosis Status post 4 L normal saline in ED. Norepi discontinued 11/01 Maintain MAP greater than 65mmHg Discontinue central line Holding lisinopril 20 mg by mouth twice a day in light of hypotension Resume metoprolol 12.5 mg twice a day Okay to continue lovastatin 80 mg by mouth at bedtime for dyslipidemia Holding Pletal 50 mg twice a day and Plavix 75 mg daily in light of possible intervention. Discussed with Dr. Allison Dominguez Noted area and wall of aorta on CT with periaortic fat stranding indicative inflammatory type changes likely aortitis. See consult note from vascular. No immediate need for intervention at this time. Likely in future Echo 10/31 EF 55-60%. Calcified mitral valve. Trace regurg. Trace tricuspid regurg. NI 38 mmHg. No signs of endocarditis Resp: Tobaccoism Nasal cannula to maintain saturations greater than or equal to 92% Incentive spirometry while awake Chest x-ray reveals no acute cardio pulmonary findings Tobacco cessation encouraged. GI: History of ulcerative colitis/IBD Constipation Colonic diverticular cyst Continue Asacol 800 mg twice a day and [place] 1000 mg at night for ulcerative colitis Begin heart healthy diet Protonix for GI prophylaxis. On Protonix 40 mg daily at home Colace/ Senokot/MiraLAX twice a day for bowel regimen. Discontinue lactulose hold bowel regimen 2/2 ulcerative colitis multiple bowel movements CT abdomen/pelvis revealed no obstructive process his bowels. Positive diverticular cyst near pancreas. Chronic. : History of BPH Prostate 4.[address] abdomen/pelvis Endo: Hyperglycemia likely critical illness Sliding-scale insulin to maintain euglycemia. Accu-Cheks before meals/at bedtime/low regimen Renal: Acute kidney injury -resolved Accurate I/Os Monitor urine output Status post 4 L and normal saline ED. Currently normal saline at 84 cc an hour, will discontinue when patient is tolerating by mouth diet Creatinine normalized 0.9 Heme: Leukocytosis Anemia Currently no indication for transfusion of blood products Follow-up on CBC hemoglobin currently 7.7. ID: Aortitis Possible dental abscess Empirically placed on vancomycin/Zosyn for aortitis day #4 Vascular surgery/Dr. Cooper seen. Please see his note. Currently plan for antibiotic coverage with possible repair in the future. To be determined. Blood cultures 2 10/31 and 11/01 pending. UA revealed no acute findings CT maxillofacial revealed no dental abscess ID consult for antibiotic management Blood culture 2-gram variable meka MSK: PT evaluate and treat FEN: Hyponatremia - resolved Recheck BMP in a.m. Replace electrolytes as clinically indicated Access - Left IJ CVL day #4 (discontinued) Prophylaxis - GI - Protonix - DVT - SCD/holding pharmacological prophylaxis. Resume when okay with vascular surgery Critical Care: Level 2 Physician Venecia Hubbard MD Nov 03, 2016 16:25
[2016-11-03] MEDS: SODIUM CHLOR 0.9% 1000 ML INJ 1,000 ML IV SCH (17:05)
[2016-11-03] MEDS: VANCOMYCIN INJ 1,250 MG in SODIUM CHLOR 0.9% 250 ML INJ 250 ML IV SCH (17:22)
[2016-11-03] MEDS: PRAVASTATIN SOD 40 MG TAB PO SCH (19:57)
[2016-11-03] MEDS: MESALAMINE 1000 MG SUPP PR SCH (19:58)
[2016-11-03] MEDS: MELATONIN 5 MG TAB PO PRN (22:11)
[2016-11-04] VITALS (10 sets, daily range): BP systolic 131–168; BP diastolic 63–84; PULSE 68–87; RESP 19–27; TEMP 98.2–98.7; O2SAT 91–99
[2016-11-04] MEDS: SENNOSIDES 8.6 MG TAB PO SCH ×2 (01:20→14:00)
[2016-11-04] MEDS: SODIUM CHLOR 0.9% 1000 ML INJ 1,000 ML IV SCH (01:20)
[2016-11-04] MEDS: CHLORHEXIDINE GLUCONATE 2 % 1 PACK (2 CLOTHS) TOP SCH (01:20)
[2016-11-04] MEDS: RESP: ALBUTEROL 2.5 MG/IPRATROPIUM 0.5 MG NEB (SCH) INH ×2 (04:00→08:10)
[2016-11-04] MEDS: PIPERACIL-TAZO 4.5 GM PREMIX 100 ML IV SCH ×4 (05:07→23:27)
[2016-11-04 05:15] LABS: HEMATOCRIT 23.6 % (39.0-51.0); MEAN CELL VOLUME 81.3 FL (80.0-100.0); MEAN CORPUSCULAR HEMOGLOBIN 26.6 PG (27.0-34.0); MEAN CORPUSCULAR HGB CONC 32.7 % (32.0-36.0); PLATELET COUNT 245 TH/MM3 (150-450); RED CELL DISTRIBUTION WIDTH 15.7 % (11.6-17.2); REVIEW FLAG FINAL; WHITE BLOOD COUNT 6.3 TH/MM3 (4.0-11.0)
[2016-11-04 05:35] LABS: BICARBONATE 27.7 MEQ/L (21.0-32.0); POTASSIUM 3.5 MEQ/L (3.5-5.1)
[2016-11-04] MEDS: INSULIN NovoLIN REGULAR SUPPLEMENTAL SCALE SQ SCH ×4 (06:33→20:30)
[2016-11-04] MEDS: CILOSTAZOL 50 MG TAB PO SCH ×2 (06:33→16:18)
[2016-11-04] MEDS: PANTOPRAZOLE SODIUM 40 MG VIAL IV SCH (08:07)
[2016-11-04] MEDS: ARTIFICIAL TEARS OPTH SOLN 15 ML BTL EACH EYE SCH ×3 (08:07→18:00)
[2016-11-04] MEDS: MULTIVITAMIN TAB PO SCH (08:07)
[2016-11-04] MEDS: FOLIC ACID 1 MG TAB PO SCH (08:08)
[2016-11-04] MEDS: METOPROLOL TARTRATE 25 MG TAB PO SCH ×2 (08:08→20:29)
[2016-11-04] MEDS: LISINOPRIL 20 MG TAB PO SCH ×2 (08:08→20:29)
[2016-11-04] MEDS: MESALAMINE HD 800 MG DELAYED RELEASE TAB PO SCH ×2 (08:08→20:29)
[2016-11-04] MEDS: POLYETHYLENE GLYCOL 17 GM PKG PO SCH ×2 (08:09→20:29)
[2016-11-04] MEDS: LACTULOSE SYRUP 20 GM/30 ML CUP PO SCH ×4 (08:09→20:29)
[2016-11-04] MEDS: SODIUM CHLORIDE 0.9% FLUSH 5 ML FLUSH IVF SCH (08:09)
[2016-11-04] MEDS: DOCUSATE SODIUM 100 MG CAP PO SCH ×2 (08:09→20:30)
[2016-11-04] MEDS: SODIUM CHLORIDE 0.9% FLUSH 5 ML FLUSH IV FLUSH SCH ×2 (08:09→20:30)
[2016-11-04] MEDS: THIAMINE INJ 100 MG in SODIUM CHLORIDE 0.9% INJ 100 ML IV SCH (08:56)
--- NOTE | 2016-11-04 11:04 | PD.CAR.PN ---
CVT Progress Note Subjective/Hospital Course: Patient with abdominal pain and finding of periaortic inflammation in the distal aorta just above the bifurcation Patient also has a few small bubbles of air within the aortic wall has the consultation and fear of gas forming organisms in the aortic wall As noted in the consultation the most common pathogens are Staphylococcus and salmonella comprises about half of these cases and the rest this is a divided between gram-negative and gram-positive aerobes and anaerobes. In this particular situation patient is currently stable he is treated with antibiotics In the best case scenario this is going to resolve and long-term antibiotics will treat the condition permanently provided that the sources eliminate which in this case may be patient's dental abscess And worse case scenario patient would need resection of the abdominal aorta with axillobifemoral bypass which is quite an undertaking and carries with it high morbidity and significant mortality in the long run Therefore every effort should be made to treat this medically if possible It should be noted that patient is not a candidate for endovascular grafting for 2 reasons, the first one being that this is an infectious process and placing a stent is possible, but not recommended and the secondarily, patient had recently mental iliac stents placed precluding placement of an aortobifemoral stent graft Today patient is doing better abdomen is soft with few bowel sounds no rebound or guarding White count is normalized the left shift is resolving At this point patient is responding to antibiotics and this is exactly what we should continue The exam, history, and the medical decision-making described in the above note were completed. I reviewed and agree with the findings presented. I attest that I had a [id number] encounter with the patient on the same day, and personally performed and documented my assessment and findings in the medical record. Critical care time 35 minutes. 11/02/16 Patient is greatly improved abdomen is soft with active bowel sounds and sepsis has resolved Hyperdynamic state has abated and patient is better Would continue antibiotic therapy and a repeat CAT scan of abdomen and pelvis with IV contrast probably by the end of this week which should show significant resolution of inflammatory changes and the aorta Patient will need to be on long-term antibiotics for about 6 weeks and then we can rescan him again If patient remains asymptomatic nothing will need to be done on the other hand the patient still has inflammatory changes of the aorta and he clinically worsens then the only option would be resection of the abdominal aorta with axillobifemoral bypass. Cadaveric aortic graft placement is another option in this patient's but this would be associated with high risk of complications especially with the common iliac stents right up there by the aortic bifurcation 11/04/16 Patient is asymptomatic at this time Abdomen soft with active bowel sounds and good distal perfusion We'll repeat CAT scan of abdomen and pelvis later on this week and Wednesday to see if the inflammatory changes have regressed At this point patient is responding to antibiotics and doing very well so I would keep him on antibiotics for about 6 weeks Surgery should be the last option for this gentleman Objective: Vital Signs Date Time Temp Pulse Resp B/P Pulse Ox O2 Delivery O2 Flow Rate FiO2 11/04/16 10:00 87 11/04/16 08:00 82 11/04/16 08:00 98.5 82 20 157/82 91 11/04/16 06:00 70 11/04/16 04:00 68 11/04/16 04:00 98.6 68 21 140/71 95 11/04/16 02:00 78 11/04/16 00:00 87 11/04/16 00:00 98.4 87 21 131/63 99 11/03/16 22:00 85 11/03/16 20:00 93 11/03/16 20:00 98.9 93 24 139/77 99 11/03/16 19:05 97 21 11/03/16 18:00 103 11/03/16 16:00 98.2 96 28 164/86 97 11/03/16 16:00 93 11/03/16 14:00 86 11/03/16 12:00 86 11/03/16 12:00 98.7 80 27 172/90 92 Labs: Laboratory Tests Test 11/04/16 04:42 White Blood Count 6.3 TH/MM3 (4.0-11.0) Red Blood Count 2.90 MIL/MM3 (4.50-5.90) Hemoglobin 7.7 GM/DL (13.0-17.0) Hematocrit 23.6 % (39.0-51.0) Mean Corpuscular Volume 81.3 FL (80.0-100.0) Mean Corpuscular Hemoglobin 26.6 PG (27.0-34.0) Mean Corpuscular Hemoglobin 32.7 % Concent (32.0-36.0) Red Cell Distribution Width 15.7 % (11.6-17.2) Platelet Count 245 TH/MM3 (150-450) Mean Platelet Volume 8.1 FL (7.0-11.0) Sodium Level 140 MEQ/L (136-145) Potassium Level 3.5 MEQ/L (3.5-5.1) Chloride Level 104 MEQ/L (98-107) Carbon Dioxide Level 27.7 MEQ/L (21.0-32.0) Anion Gap 8 MEQ/L (5-15) Blood Urea Nitrogen 9 MG/DL (7-18) Creatinine 1.08 MG/DL (0.60-1.30) Estimat Glomerular Filtration 69 ML/MIN (>89) Rate Random Glucose 93 MG/DL (74-106) Calcium Level 8.0 MG/DL (8.5-10.1) Phosphorus Level 3.2 MG/DL (2.5-4.9) Magnesium Level 2.0 MG/DL (1.5-2.5) Result Diagram: 11/04/16 0442 11/04/16 0442 Tierra Cooper MD Nov 04, 2016 11:04
[2016-11-04] MEDS: VANCOMYCIN INJ 1,250 MG in SODIUM CHLOR 0.9% 250 ML INJ 250 ML IV SCH (12:11)
--- NOTE | 2016-11-04 14:24 | HHI.IDPN ---
Subjective Subjective Remarks Notes reviewed Temps normal BP ok 2 BC on admission with Clostridium perfringens Follow up BC negative Abdominal pain better No N/V No rash or itching WBC better Creatinine down to normal ESR >140 CRP 13.6 Antibiotics Vancomycin Zosyn Lines Central line [facility] - 10/31 Past Medical History Ulcerative colitis Peripheral vascular disease THC use Tobaccoism Coronary artery disease Hypertension Dyslipidemia History of claudication ETOH use Gastric ulcer, previous GIB Past Surgical History Bilateral lower extremity iliac stents Left carotid endarterectomy 2010 CABG 3 2001 CABG 1, MV ring annuloplasty 2009 Allergies: Coded Allergies: MRI PRECAUTION (Verified Allergy, Severe, PACEMAKER LEAD PER DR MARTINEZ - 08/01/2010 KMD, 10/31/16) Nitrates (Verified Allergy, Severe, Hypotension, 10/31/16) Objective . Vital Signs Date Time Temp Pulse Resp B/P Pulse Ox O2 Delivery O2 Flow Rate FiO2 11/04/16 12:00 81 11/04/16 12:00 98.7 81 22 152/72 92 11/04/16 10:00 87 11/04/16 08:00 82 11/04/16 08:00 98.5 82 20 157/82 91 11/04/16 06:00 70 11/04/16 04:00 68 11/04/16 04:00 98.6 68 21 140/71 95 11/04/16 02:00 78 11/04/16 00:00 87 11/04/16 00:00 98.4 87 21 131/63 99 11/03/16 22:00 85 11/03/16 20:00 93 11/03/16 20:00 98.9 93 24 139/77 99 11/03/16 19:05 97 21 11/03/16 18:00 103 11/03/16 16:00 98.2 96 28 164/86 97 11/03/16 16:00 93 11/03/16 11/03/16 11/04/16 15:00 23:00 07:00 Intake Total 2031 ml 630 ml 913 ml Output Total 850 ml 350 ml 400 ml Balance 1181 ml 280 ml 513 ml Intake Oral 1020 ml 240 ml 350 ml IV Total 1011 ml 390 ml 563 ml Output Urine Total 850 ml 350 ml 400 ml # Voids 3 # Bowel Movements 3 2 2 . Laboratory Tests Test 11/04/16 04:42 White Blood Count 6.3 TH/MM3 Red Blood Count 2.90 MIL/MM3 Hemoglobin 7.7 GM/DL Hematocrit 23.6 % Mean Corpuscular Volume 81.3 FL Mean Corpuscular Hemoglobin 26.6 PG Mean Corpuscular Hemoglobin 32.7 % Concent Red Cell Distribution Width 15.7 % Platelet Count 245 TH/MM3 Mean Platelet Volume 8.1 FL Laboratory Tests Test 11/02/16 11/03/16 11/04/16 22:00 07:30 04:42 Phosphorus Level 2.4 MG/DL 3.2 MG/DL Sodium Level 140 MEQ/L 140 MEQ/L Potassium Level 3.7 MEQ/L 3.5 MEQ/L Chloride Level 105 MEQ/L 104 MEQ/L Carbon Dioxide Level 26.8 MEQ/L 27.7 MEQ/L Anion Gap 8 MEQ/L 8 MEQ/L Blood Urea Nitrogen 6 MG/DL 9 MG/DL Creatinine 0.94 MG/DL 1.08 MG/DL Estimat Glomerular Filtration 81 ML/MIN 69 ML/MIN Rate Random Glucose 97 MG/DL 93 MG/DL Calcium Level 8.2 MG/DL 8.0 MG/DL Total Bilirubin 0.4 MG/DL Aspartate Amino Transf 14 U/L (AST/SGOT) Alanine Aminotransferase 17 U/L (ALT/SGPT) Alkaline Phosphatase 45 U/L Total Protein 6.0 GM/DL Albumin 2.5 GM/DL Magnesium Level 2.0 MG/DL Microbiology Date/Time Procedure Status Source Growth 11/02/16 05:46 Aerobic Blood Culture - Preliminary Resulted Blood Peripheral NO GROWTH IN 2 DAYS 11/02/16 05:46 Anaerobic Blood Culture - Preliminary Resulted Blood Peripheral NO GROWTH IN 2 DAYS Imaging Chest X-Ray 10/31/16 1508 Signed Impressions: Service Date/Time: Monday, October 31, 2016 15:01 - CONCLUSION: Adequate placement of left jugular central line. Attila Whalen MD Abdomen/Pelvis CT 10/31/16 0916 Signed Impressions: Service Date/Time: Monday, October 31, 2016 11:13 - CONCLUSION: 1. Inflammatory changes are seen about the distal abdominal aorta. There is prominent stranding/hazy opacity in the para-aortic fat. These findings are new when compared to the prior CTA of 09/14/2016. Findings indicate periaortitis. Aortic diameter is within normal limits. There is a small amount of new gas within the aortic wall in this region. 2. Chronic colonic diverticula cyst. Damir Garcia MD Maxillofacial CT 10/31/16 0000 Signed Impressions: Service Date/Time: Monday, October 31, 2016 17:14 - CONCLUSION: No abscess/fluid collection. Attila Whalen MD Abdomen Ultrasound 10/31/16 0000 Signed Impressions: Service Date/Time: Monday, October 31, 2016 14:08 - CONCLUSION: Nonobstructing calculus versus angiomyolipoma in the lower pole of the right kidney. Abdominal ultrasound otherwise within normal limits. Damir Garcia MD Physical Exam GENERAL: Awake and alert, NAD SKIN: Warm and dry. No generalized rash. No peripheral embolic lesions seen. HEENT: [place] conjunctivae, no petechia or hemorrhage. No scleral icterus. Moist oral mucosa. NECK: Supple, nontender, no meningeal signs. CARDIOVASCULAR: Regular rate and rhythm without murmurs, gallops, or rubs. No murmur. Healed sternotomy incision. RESPIRATORY: Clear to auscultation. Breath sounds equal bilaterally. No wheezes , rales, or rhonchi. GASTROINTESTINAL: Abdomen soft, non-tender, slightly distended. Bowel sounds are present and normoactive. No guarding. No rebound. MUSCULOSKELETAL: Extremities without clubbing, cyanosis, or edema. No calf tenderness. 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
[2016-11-04] MEDS: ACETAMINOPHEN/HYDROcodone 325 MG/5 MG TAB PO PRN ×2 (14:58→20:29)
--- NOTE | 2016-11-04 17:36 | HHI.PR ---
Subjective Remarks Pt is a 66 y/o M admitted to [facility] with c/o abdominal pain 10/31. Pt with h/o PVD, PAD, CAD - s/p 3V CABG &MVR UC, HTN, TIA, alcohol abuse, THC abuse. CT abd (10/31/16) revealed aortitis. Pt is being followed by [facility] and ID. CCM transferred pt to the medical service. Pt is eating well. No n/v/d. Pt c/o insomnia. Objective Vitals Vital Signs Date Time Temp Pulse Resp B/P Pulse Ox O2 Delivery O2 Flow Rate FiO2 11/04/16 16:00 98.3 79 19 168/80 93 11/04/16 16:00 79 11/04/16 15:58 23 11/04/16 12:00 81 11/04/16 12:00 98.7 81 22 152/72 92 11/04/16 10:00 87 11/04/16 08:00 82 11/04/16 08:00 98.5 82 20 157/82 91 11/04/16 06:00 70 11/04/16 04:00 68 11/04/16 04:00 98.6 68 21 140/71 95 11/04/16 02:00 78 11/04/16 00:00 87 11/04/16 00:00 98.4 87 21 131/63 99 11/03/16 22:00 85 11/03/16 20:00 93 11/03/16 20:00 98.9 93 24 139/77 99 11/03/16 19:05 97 21 11/03/16 18:00 103 11/03/16 11/03/16 11/04/16 15:00 23:00 07:00 Intake Total 2031 ml 630 ml 913 ml Output Total 850 ml 350 ml 400 ml Balance 1181 ml 280 ml 513 ml Intake Oral 1020 ml 240 ml 350 ml IV Total 1011 ml 390 ml 563 ml Output Urine Total 850 ml 350 ml 400 ml # Voids 3 # Bowel Movements 3 2 2 Result Diagram: 11/04/16 0442 11/04/16 0442 Imaging Last Impressions Chest X-Ray 10/31/16 1508 Signed Impressions: Service Date/Time: Monday, October 31, 2016 15:01 - CONCLUSION: Adequate placement of left jugular central line. Attila Whalen MD Abdomen/Pelvis CT 10/31/16 0916 Signed Impressions: Service Date/Time: Monday, October 31, 2016 11:13 - CONCLUSION: 1. Inflammatory changes are seen about the distal abdominal aorta. There is prominent stranding/hazy opacity in the para-aortic fat. These findings are new when compared to the prior CTA of 09/14/2016. Findings indicate periaortitis. Aortic diameter is within normal limits. There is a small amount of new gas within the aortic wall in this region. 2. Chronic colonic diverticula cyst. Damir Garcia MD Maxillofacial CT 10/31/16 0000 Signed Impressions: Service Date/Time: Monday, October 31, 2016 17:14 - CONCLUSION: No abscess/fluid collection. Attila Whalen MD Abdomen Ultrasound 10/31/16 0000 Signed Impressions: Service Date/Time: Monday, October 31, 2016 14:08 - CONCLUSION: Nonobstructing calculus versus angiomyolipoma in the lower pole of the right kidney. Abdominal ultrasound otherwise within normal limits. Damir Garcia MD Objective Remarks GENERAL: This is a well-nourished, well-developed patient, in no apparent distress. CARDIOVASCULAR: Regular rate and rhythm without murmurs, gallops, or rubs. RESPIRATORY: Clear to auscultation. Breath sounds equal bilaterally. No wheezes , rales, or rhonchi. GASTROINTESTINAL: Abdomen soft, non-tender, nondistended. Normal active bowel sounds MUSCULOSKELETAL: Extremities without clubbing, cyanosis, or edema. NEURO: Alert & Oriented x4 to person, place, time, situation. Moves all ext x4 Date of Insertion: Oct 31, 2016 Line: Central Venous Catheter Side: Left Location: Internal, Jugular A/P Problem List: (1) Aortitis Status: Acute Plan: - comgmt with ID and [facility] - Vancomycin 11/01 - 11/04 - zosyn 10/31 - blood cx (10/31/16) --> clostridium perfringens - repeat blood cx (10/2716) --> NGTD - Repeat CT A/P later this week (2) CAD (coronary artery disease) Status: Chronic Plan: - lisinopril, metoprolol (3) Ulcerative colitis Status: Acute Plan: - canasa, asacol (4) ETOHism Status: Acute (5) Hyperglyceridemia Status: Acute (6) Marijuana abuse Status: Acute (7) Tobacco use disorder Status: Acute (8) Alcohol abuse Status: Acute (9) PAD (peripheral artery disease) Status: Chronic Problem Qualifiers (1) CAD (coronary artery disease): Qualified Code: I25.10 - Coronary artery disease involving [place] heart without angina pectoris, unspecified vessel or lesion type (2) Ulcerative colitis: Qualified Code: K51.919 - Ulcerative colitis with complication, unspecified location Leon Abebe DO Nov 04, 2016 17:36
[2016-11-04] MEDS ORDERED: SODIUM CHLOR 0.9% 250 ML INJ 250 ML IV ONE (18:00)
[2016-11-04] MEDS ORDERED: FUROSEMIDE 20 MG/2 ML VIAL IV ONE (18:00)
[2016-11-04] MEDS: PRAVASTATIN SOD 40 MG TAB PO SCH (20:27)
[2016-11-04] MEDS: MESALAMINE 1000 MG SUPP PR SCH (20:30)
[2016-11-04] MEDS: TEMAZEPAM 15 MG CAP PO PRN (23:37)
[2016-11-05] VITALS (9 sets, daily range): BP systolic 115–179; BP diastolic 58–87; PULSE 70–83; RESP 18–28; TEMP 98.3–98.7; O2SAT 94–99
[2016-11-05] MEDS: SODIUM CHLOR 0.9% 1000 ML INJ 1,000 ML IV SCH ×2 (01:17→13:12)
[2016-11-05] MEDS: SENNOSIDES 8.6 MG TAB PO SCH ×2 (02:00→14:00)
[2016-11-05] MEDS ORDERED: FUROSEMIDE 20 MG/2 ML VIAL IV SCH (02:30)
[2016-11-05] MEDS: CHLORHEXIDINE GLUCONATE 2 % 1 PACK (2 CLOTHS) TOP SCH (04:00)
[2016-11-05] MEDS: PIPERACIL-TAZO 4.5 GM PREMIX 100 ML IV SCH (04:22)
[2016-11-05] MEDS: ACETAMINOPHEN/HYDROcodone 325 MG/5 MG TAB PO PRN ×2 (04:22→20:35)
[2016-11-05] MEDS ORDERED: PHARMACY ORDERED LAB XX ONE (04:45)
[2016-11-05] MEDS: INSULIN NovoLIN REGULAR SUPPLEMENTAL SCALE SQ SCH ×4 (07:00→20:36)
[2016-11-05 08:48] LABS: AUTOMATED NEUTROPHIL # 4.2 TH/MM3 (1.8-7.7); BASOPHIL # 0.1 TH/MM3 (0-0.2); BASOPHIL % 0.7 % (0.0-2.0); EOSINOPHIL # 0.3 TH/MM3 (0-0.4); EOSINOPHIL % 4.3 % (0.0-4.0); HEMATOCRIT 32.6 % (39.0-51.0); HEMO FLAGS DIFF FINAL; LYMPH % 23.4 % (9.0-44.0); LYMPHOCYTE # 1.7 TH/MM3 (1.0-4.8); MEAN CELL VOLUME 79.3 FL (80.0-100.0); MEAN CORPUSCULAR HEMOGLOBIN 26.8 PG (27.0-34.0); MEAN CORPUSCULAR HGB CONC 33.8 % (32.0-36.0); MONO % 12.3 % (0.0-8.0); NEUT % 59.3 % (16.0-70.0); PLATELET COUNT 283 TH/MM3 (150-450); RED BLOOD COUNT 4.12 MIL/MM3 (4.50-5.90); WHITE BLOOD COUNT 7.1 TH/MM3 (4.0-11.0)
[2016-11-05] MEDS: SODIUM CHLORIDE 0.9% FLUSH 5 ML FLUSH IVF SCH (09:00)
[2016-11-05] MEDS: ARTIFICIAL TEARS OPTH SOLN 15 ML BTL EACH EYE SCH ×3 (09:00→18:00)
[2016-11-05] MEDS: THIAMINE INJ 100 MG in SODIUM CHLORIDE 0.9% INJ 100 ML IV SCH (09:00)
[2016-11-05] MEDS: DOCUSATE SODIUM 100 MG CAP PO SCH ×2 (09:00→20:36)
[2016-11-05] MEDS: PANTOPRAZOLE SODIUM 40 MG VIAL IV SCH (09:00)
[2016-11-05] MEDS: POLYETHYLENE GLYCOL 17 GM PKG PO SCH ×2 (09:00→20:36)
[2016-11-05] MEDS: LACTULOSE SYRUP 20 GM/30 ML CUP PO SCH ×4 (09:00→20:36)
[2016-11-05] MEDS: SODIUM CHLORIDE 0.9% FLUSH 5 ML FLUSH IV FLUSH SCH ×2 (09:00→20:36)
[2016-11-05] MEDS: FOLIC ACID 1 MG TAB PO SCH (09:57)
[2016-11-05] MEDS: LISINOPRIL 20 MG TAB PO SCH ×2 (09:57→20:35)
[2016-11-05] MEDS: MULTIVITAMIN TAB PO SCH (09:57)
[2016-11-05] MEDS: MESALAMINE HD 800 MG DELAYED RELEASE TAB PO SCH ×2 (09:57→20:35)
[2016-11-05] MEDS: METOPROLOL TARTRATE 25 MG TAB PO SCH ×2 (09:57→20:35)
[2016-11-05] MEDS: CILOSTAZOL 50 MG TAB PO SCH ×2 (09:57→16:00)
--- NOTE | 2016-11-05 14:07 | HHI.IDPN ---
Subjective Subjective Remarks Notes reviewed D/W RN Temps normal BP ok 2 BC on admission with Clostridium perfringens Follow up BC negative Abdominal pain better No N/V No rash or itching WBC better Creatinine down to normal ESR >140 CRP 13.6 Antibiotics Zosyn Past Medical History Ulcerative colitis Peripheral vascular disease THC use Tobaccoism Coronary artery disease Hypertension Dyslipidemia History of claudication ETOH use Gastric ulcer, previous GIB Past Surgical History Bilateral lower extremity iliac stents Left carotid endarterectomy 2010 CABG 3 2001 CABG 1, MV ring annuloplasty 2009 Allergies: Coded Allergies: MRI PRECAUTION (Verified Allergy, Severe, PACEMAKER LEAD PER DR MARTINEZ - 08/01/2010 KMD, 10/31/16) Nitrates (Verified Allergy, Severe, Hypotension, 10/31/16) Objective . Vital Signs Date Time Temp Pulse Resp B/P Pulse Ox O2 Delivery O2 Flow Rate FiO2 11/05/16 08:41 98 21 11/05/16 04:27 70 21 167/79 96 11/05/16 04:00 98.7 70 21 167/79 96 11/05/16 04:00 70 11/05/16 02:42 71 18 115/58 99 11/05/16 00:00 98.5 83 21 145/75 99 11/05/16 00:00 83 11/04/16 21:40 20 11/04/16 20:00 98.2 84 27 161/84 95 11/04/16 20:00 84 11/04/16 19:26 95 11/04/16 16:00 98.3 79 19 168/80 93 11/04/16 16:00 79 11/04/16 11/04/16 11/05/16 15:00 23:00 07:00 Intake Total 2210 ml 2905 ml Output Total 2500 ml Balance 2210 ml 405 ml Intake Oral 840 ml 900 ml IV Total 1370 ml 1405 ml Packed Cells 600 ml Output Urine Total 2500 ml # Voids 3 6 # Bowel Movements 2 0 . Laboratory Tests Test 11/04/16 11/05/16 04:42 08:24 White Blood Count 6.3 TH/MM3 7.1 TH/MM3 Red Blood Count 2.90 MIL/MM3 4.12 MIL/MM3 Hemoglobin 7.7 GM/DL 11.0 GM/DL Hematocrit 23.6 % 32.6 % Mean Corpuscular Volume 81.3 FL 79.3 FL Mean Corpuscular Hemoglobin 26.6 PG 26.8 PG Mean Corpuscular Hemoglobin 32.7 % 33.8 % Concent Red Cell Distribution Width 15.7 % 17.0 % Platelet Count 245 TH/MM3 283 TH/MM3 Mean Platelet Volume 8.1 FL 7.8 FL Neutrophils (%) (Auto) 59.3 % Lymphocytes (%) (Auto) 23.4 % Monocytes (%) (Auto) 12.3 % Eosinophils (%) (Auto) 4.3 % Basophils (%) (Auto) 0.7 % Neutrophils # (Auto) 4.2 TH/MM3 Lymphocytes # (Auto) 1.7 TH/MM3 Monocytes # (Auto) 0.9 TH/MM3 Eosinophils # (Auto) 0.3 TH/MM3 Basophils # (Auto) 0.1 TH/MM3 CBC Comment DIFF FINAL Differential Comment Laboratory Tests Test 11/04/16 04:42 Sodium Level 140 MEQ/L Potassium Level 3.5 MEQ/L Chloride Level 104 MEQ/L Carbon Dioxide Level 27.7 MEQ/L Anion Gap 8 MEQ/L Blood Urea Nitrogen 9 MG/DL Creatinine 1.08 MG/DL Estimat Glomerular Filtration 69 ML/MIN Rate Random Glucose 93 MG/DL Calcium Level 8.0 MG/DL Phosphorus Level 3.2 MG/DL Magnesium Level 2.0 MG/DL Imaging Chest X-Ray 10/31/16 1508 Signed Impressions: Service Date/Time: Monday, October 31, 2016 15:01 - CONCLUSION: Adequate placement of left jugular central line. Attila Whalen MD Abdomen/Pelvis CT 10/31/16 0916 Signed Impressions: Service Date/Time: Monday, October 31, 2016 11:13 - CONCLUSION: 1. Inflammatory changes are seen about the distal abdominal aorta. There is prominent stranding/hazy opacity in the para-aortic fat. These findings are new when compared to the prior CTA of 09/14/2016. Findings indicate periaortitis. Aortic diameter is within normal limits. There is a small amount of new gas within the aortic wall in this region. 2. Chronic colonic diverticula cyst. Damir Garcia MD Maxillofacial CT 10/31/16 0000 Signed Impressions: Service Date/Time: Monday, October 31, 2016 17:14 - CONCLUSION: No abscess/fluid collection. Attila Whalen MD Abdomen Ultrasound 10/31/16 0000 Signed Impressions: Service Date/Time: Monday, October 31, 2016 14:08 - CONCLUSION: Nonobstructing calculus versus angiomyolipoma in the lower pole of the right kidney. Abdominal ultrasound otherwise within normal limits. Damir Garcia MD Physical Exam GENERAL: Awake and alert, NAD SKIN: Warm and dry. No generalized rash. No peripheral embolic lesions seen. HEENT: [place] conjunctivae, no petechia or hemorrhage. No scleral icterus. Moist oral mucosa. NECK: Supple, nontender, no meningeal signs. CARDIOVASCULAR: Regular rate and rhythm without murmurs, gallops, or rubs. No murmur. Healed sternotomy incision. RESPIRATORY: Clear to auscultation. Breath sounds equal bilaterally. No wheezes , rales, or rhonchi. GASTROINTESTINAL: Abdomen soft, non-tender, not distended. Bowel sounds are present and normoactive. No guarding. No rebound. MUSCULOSKELETAL: Extremities without clubbing, cyanosis, or edema. No calf tenderness. 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
[2016-11-05] MEDS: PIPERACIL TAZO IV SCH ×2 (17:00→22:05)
--- NOTE | 2016-11-05 17:09 | HHI.PR ---
Subjective Remarks No new complaints. Objective Vitals Vital Signs Date Time Temp Pulse Resp B/P Pulse Ox O2 Delivery O2 Flow Rate FiO2 11/05/16 16:38 98.3 77 21 163/79 96 11/05/16 16:02 78 11/05/16 08:41 98 21 11/05/16 04:27 70 21 167/79 96 11/05/16 04:00 98.7 70 21 167/79 96 11/05/16 04:00 70 11/05/16 02:42 71 18 115/58 99 11/05/16 00:00 98.5 83 21 145/75 99 11/05/16 00:00 83 11/04/16 21:40 20 11/04/16 20:00 98.2 84 27 161/84 95 11/04/16 20:00 84 11/04/16 19:26 95 11/04/16 11/04/16 11/05/16 15:00 23:00 07:00 Intake Total 2210 ml 2905 ml Output Total 2500 ml Balance 2210 ml 405 ml Intake Oral 840 ml 900 ml IV Total 1370 ml 1405 ml Packed Cells 600 ml Output Urine Total 2500 ml # Voids 3 6 # Bowel Movements 2 0 Result Diagram: 11/05/16 0824 11/04/16 0442 Imaging Last Impressions Chest X-Ray 10/31/16 1508 Signed Impressions: Service Date/Time: Monday, October 31, 2016 15:01 - CONCLUSION: Adequate placement of left jugular central line. Attila Whalen MD Abdomen/Pelvis CT 10/31/16 0916 Signed Impressions: Service Date/Time: Monday, October 31, 2016 11:13 - CONCLUSION: 1. Inflammatory changes are seen about the distal abdominal aorta. There is prominent stranding/hazy opacity in the para-aortic fat. These findings are new when compared to the prior CTA of 09/14/2016. Findings indicate periaortitis. Aortic diameter is within normal limits. There is a small amount of new gas within the aortic wall in this region. 2. Chronic colonic diverticula cyst. Damir Garcia MD Maxillofacial CT 10/31/16 0000 Signed Impressions: Service Date/Time: Monday, October 31, 2016 17:14 - CONCLUSION: No abscess/fluid collection. Attila Whalen MD Abdomen Ultrasound 10/31/16 0000 Signed Impressions: Service Date/Time: Monday, October 31, 2016 14:08 - CONCLUSION: Nonobstructing calculus versus angiomyolipoma in the lower pole of the right kidney. Abdominal ultrasound otherwise within normal limits. Damir Garcia MD Objective Remarks GENERAL: This is a well-nourished, well-developed patient, in no apparent distress. CARDIOVASCULAR: Regular rate and rhythm without murmurs, gallops, or rubs. RESPIRATORY: Clear to auscultation. Breath sounds equal bilaterally. No wheezes , rales, or rhonchi. GASTROINTESTINAL: Abdomen soft, non-tender, nondistended. Normal active bowel sounds MUSCULOSKELETAL: Extremities without clubbing, cyanosis, or edema. NEURO: Alert & Oriented x4 to person, place, time, situation. Moves all ext x4 Date of Insertion: Oct 31, 2016 Line: Central Venous Catheter Side: Left Location: Internal, Jugular A/P Problem List: (1) Aortitis Status: Acute Plan: - comgmt with ID and [facility] - Vancomycin 11/01 - 11/04 - zosyn 10/31 - present - blood cx (10/31/16) --> clostridium perfringens - repeat blood cx (10/2716) --> NGTD - Repeat CT A/P 11/08/16 - Case d/w Dr. Cooper (11/05/16) - will transfer to general medical floor (2) CAD (coronary artery disease) Status: Chronic Plan: - lisinopril, metoprolol (3) Ulcerative colitis Status: Acute Plan: - canasa, asacol (4) ETOHism Status: Acute (5) Hyperglyceridemia Status: Acute (6) Marijuana abuse Status: Acute (7) Tobacco use disorder Status: Acute (8) Alcohol abuse Status: Acute (9) PAD (peripheral artery disease) Status: Chronic Problem Qualifiers (1) CAD (coronary artery disease): Qualified Code: I25.10 - Coronary artery disease involving [place] heart without angina pectoris, unspecified vessel or lesion type (2) Ulcerative colitis: Qualified Code: K51.919 - Ulcerative colitis with complication, unspecified location Leon Abebe DO Nov 05, 2016 17:08
[2016-11-05] MEDS ORDERED: cloNIDine HCL 0.2 MG TAB PO PRN (17:30)
[2016-11-05] MEDS ORDERED: ENALAPRILAT 1.25 MG/ML VIAL IV PRN (17:30)
[2016-11-05] MEDS: NIFEdipine 30 MG SUSTAINED RELEASE TAB PO SCH (18:21)
--- NOTE | 2016-11-05 18:54 | RADRPT ---
EXAM DATE/TIME: 11/05/2016 18:13 This report includes an Addendum and supersedes previous reports for this exam. [facility] COMPARISON: CHEST SINGLE AP, October 31, 2016, 15:01. INDICATIONS : PICC line placement. MEDICAL HISTORY : Cardiovascular disease. Hypertension. SURGICAL HISTORY : None. ENCOUNTER: Initial ACUITY: 1 day PAIN SCORE: 0/10 LOCATION: chest FINDINGS: The lungs are clear without infiltrate, nodule, or mass. There is no appreciable pleural effusion fo r technique. Heart and mediastinum are unremarkable. There is evidence for prior median sternotomy. CONCLUSION: No acute cardiopulmonary disease. Nickolas Betancourt MD on November 05, 2016 at 18:52 Board Certified Radiologist. This report was verified electronically. ADDENDUM: A left upper extremity PICC line has been inserted and appears to be in good position. The tip is at the caval atrial junction. Left jugular line has been removed. Dominick Kitchen MD on November 06, 2016 at 19:41 Board Certified Radiologist. This report was verified electronically.
[2016-11-05] MEDS: PRAVASTATIN SOD 40 MG TAB PO SCH (20:35)
[2016-11-05] MEDS: MESALAMINE 1000 MG SUPP PR SCH (20:36)
[2016-11-05] MEDS: TEMAZEPAM 15 MG CAP PO PRN (22:05)
[2016-11-06] VITALS (8 sets, daily range): BP systolic 122–153; BP diastolic 61–88; PULSE 74–90; RESP 16–22; TEMP 97.9–98.7; O2SAT 94–99
[2016-11-06] MEDS: SODIUM CHLOR 0.9% 1000 ML INJ 1,000 ML IV SCH (01:07)
[2016-11-06] MEDS: SENNOSIDES 8.6 MG TAB PO SCH ×3 (02:00→22:10)
[2016-11-06] MEDS: CHLORHEXIDINE GLUCONATE 2 % 1 PACK (2 CLOTHS) TOP SCH (04:00)
[2016-11-06] MEDS: CILOSTAZOL 50 MG TAB PO SCH ×2 (05:26→17:22)
[2016-11-06] MEDS: PIPERACIL TAZO IV SCH ×2 (05:27→11:00)
[2016-11-06] MEDS: INSULIN NovoLIN REGULAR SUPPLEMENTAL SCALE SQ SCH ×2 (07:00→11:00)
[2016-11-06] MEDS: NIFEdipine 30 MG SUSTAINED RELEASE TAB PO SCH (07:58)
[2016-11-06] MEDS: FOLIC ACID 1 MG TAB PO SCH (07:58)
[2016-11-06] MEDS: MULTIVITAMIN TAB PO SCH (07:58)
[2016-11-06] MEDS: POLYETHYLENE GLYCOL 17 GM PKG PO SCH ×2 (07:59→21:00)
[2016-11-06] MEDS: METOPROLOL TARTRATE 25 MG TAB PO SCH (07:59)
[2016-11-06] MEDS: LISINOPRIL 20 MG TAB PO SCH ×2 (07:59→21:16)
[2016-11-06] MEDS: LACTULOSE SYRUP 20 GM/30 ML CUP PO SCH ×4 (07:59→21:00)
[2016-11-06] MEDS: ARTIFICIAL TEARS OPTH SOLN 15 ML BTL EACH EYE SCH ×3 (08:15→17:56)
[2016-11-06] MEDS: PANTOPRAZOLE SODIUM 40 MG VIAL IV SCH (08:15)
[2016-11-06] MEDS: SODIUM CHLORIDE 0.9% FLUSH 5 ML FLUSH IV FLUSH SCH ×2 (08:15→22:10)
[2016-11-06] MEDS: SODIUM CHLORIDE 0.9% FLUSH 5 ML FLUSH IVF SCH (08:16)
[2016-11-06] MEDS: MESALAMINE HD 800 MG DELAYED RELEASE TAB PO SCH ×2 (08:16→22:10)
[2016-11-06] MEDS: DOCUSATE SODIUM 100 MG CAP PO SCH ×2 (08:16→21:00)
[2016-11-06] MEDS ORDERED: DIATRIZOATE MEGLUM/DIATRIZOATE SOD 9 ML CUP PO ONE (17:05)
--- NOTE | 2016-11-06 17:09 | HHI.IDPN ---
Subjective Subjective Remarks Notes reviewed Temps normal BP better, numbers more within normal range BM still not normal but going once a day 2 BC on admission with Clostridium perfringens Follow up BC negative No abdominal pain No N/V No rash or itching WBC better Creatinine down to normal ESR >140 CRP 13.6 Antibiotics Zosyn Lines PICC Past Medical History Ulcerative colitis Peripheral vascular disease THC use Tobaccoism Coronary artery disease Hypertension Dyslipidemia History of claudication ETOH use Gastric ulcer, previous GIB Past Surgical History Bilateral lower extremity iliac stents Left carotid endarterectomy 2010 CABG 3 2001 CABG 1, MV ring annuloplasty 2009 Allergies: Coded Allergies: MRI PRECAUTION (Verified Allergy, Severe, PACEMAKER LEAD PER DR MARTINEZ - 08/01/2010 KMD, 10/31/16) Nitrates (Verified Allergy, Severe, Hypotension, 10/31/16) Objective . Vital Signs Date Time Temp Pulse Resp B/P Pulse Ox O2 Delivery O2 Flow Rate FiO2 11/06/16 12:22 94 Nasal Cannula 21 11/06/16 12:03 98.5 82 22 122/72 99 11/06/16 12:00 74 11/06/16 08:00 98.7 82 22 138/72 99 11/06/16 08:00 78 11/06/16 04:00 98.2 77 19 128/61 98 11/06/16 04:00 77 11/06/16 00:00 98.3 75 21 140/76 99 11/06/16 00:00 75 11/05/16 22:06 21 11/05/16 20:00 83 11/05/16 20:00 98.4 83 28 179/87 98 11/05/16 19:10 94 21 11/05/16 11/05/16 11/06/16 15:00 23:00 07:00 Intake Total 1155 ml 457 ml 500 ml Output Total 1250 ml Balance -95 ml 457 ml 500 ml Intake Oral 800 ml 400 ml 450 ml IV Total 355 ml 57 ml 50 ml Output Urine Total 1250 ml # Voids 2 5 # Bowel Movements 2 0 0 . Laboratory Tests Test 11/05/16 08:24 White Blood Count 7.1 TH/MM3 Red Blood Count 4.12 MIL/MM3 Hemoglobin 11.0 GM/DL Hematocrit 32.6 % Mean Corpuscular Volume 79.3 FL Mean Corpuscular Hemoglobin 26.8 PG Mean Corpuscular Hemoglobin 33.8 % Concent Red Cell Distribution Width 17.0 % Platelet Count 283 TH/MM3 Mean Platelet Volume 7.8 FL Neutrophils (%) (Auto) 59.3 % Lymphocytes (%) (Auto) 23.4 % Monocytes (%) (Auto) 12.3 % Eosinophils (%) (Auto) 4.3 % Basophils (%) (Auto) 0.7 % Neutrophils # (Auto) 4.2 TH/MM3 Lymphocytes # (Auto) 1.7 TH/MM3 Monocytes # (Auto) 0.9 TH/MM3 Eosinophils # (Auto) 0.3 TH/MM3 Basophils # (Auto) 0.1 TH/MM3 CBC Comment DIFF FINAL Differential Comment Imaging Chest X-Ray 10/31/16 1508 Signed Impressions: Service Date/Time: Monday, October 31, 2016 15:01 - CONCLUSION: Adequate placement of left jugular central line. Attila Whalen MD Abdomen/Pelvis CT 10/31/16 0916 Signed Impressions: Service Date/Time: Monday, October 31, 2016 11:13 - CONCLUSION: 1. Inflammatory changes are seen about the distal abdominal aorta. There is prominent stranding/hazy opacity in the para-aortic fat. These findings are new when compared to the prior CTA of 09/14/2016. Findings indicate periaortitis. Aortic diameter is within normal limits. There is a small amount of new gas within the aortic wall in this region. 2. Chronic colonic diverticula cyst. Damir Garcia MD Maxillofacial CT 10/31/16 0000 Signed Impressions: Service Date/Time: Monday, October 31, 2016 17:14 - CONCLUSION: No abscess/fluid collection. Attila Whalen MD Abdomen Ultrasound 10/31/16 0000 Signed Impressions: Service Date/Time: Monday, October 31, 2016 14:08 - CONCLUSION: Nonobstructing calculus versus angiomyolipoma in the lower pole of the right kidney. Abdominal ultrasound otherwise within normal limits. Damir Garcia MD Physical Exam GENERAL: Awake and alert, NAD SKIN: Warm and dry. No generalized rash. HEENT: [place] conjunctivae. No scleral icterus. Moist oral mucosa. NECK: Supple, nontender, no meningeal signs. CARDIOVASCULAR: Regular rate and rhythm without murmurs, gallops, or rubs. No murmur. Healed sternotomy incision. RESPIRATORY: Clear to auscultation. Breath sounds equal bilaterally. No wheezes , rales, or rhonchi. GASTROINTESTINAL: Abdomen soft, non-tender, not distended. Bowel sounds are present and normoactive. No guarding. No rebound. MUSCULOSKELETAL: Extremities without clubbing, cyanosis, or edema. No calf tenderness. 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 Explained plan to patient D/W Naheed Gandara MD Nov 06, 2016 17:09
--- NOTE | 2016-11-06 17:11 | HHI.PR ---
Subjective Remarks No new complaints. Objective Vitals Vital Signs Date Time Temp Pulse Resp B/P Pulse Ox O2 Delivery O2 Flow Rate FiO2 11/06/16 12:22 94 Nasal Cannula 21 11/06/16 12:03 98.5 82 22 122/72 99 11/06/16 12:00 74 11/06/16 08:00 98.7 82 22 138/72 99 11/06/16 08:00 78 11/06/16 04:00 98.2 77 19 128/61 98 11/06/16 04:00 77 11/06/16 00:00 98.3 75 21 140/76 99 11/06/16 00:00 75 11/05/16 22:06 21 11/05/16 20:00 83 11/05/16 20:00 98.4 83 28 179/87 98 11/05/16 19:10 94 21 11/05/16 11/05/16 11/06/16 15:00 23:00 07:00 Intake Total 1155 ml 457 ml 500 ml Output Total 1250 ml Balance -95 ml 457 ml 500 ml Intake Oral 800 ml 400 ml 450 ml IV Total 355 ml 57 ml 50 ml Output Urine Total 1250 ml # Voids 2 5 # Bowel Movements 2 0 0 Result Diagram: 11/05/16 0824 11/04/16 0442 Imaging Last Impressions Chest X-Ray 10/31/16 1508 Signed Impressions: Service Date/Time: Monday, October 31, 2016 15:01 - CONCLUSION: Adequate placement of left jugular central line. Attila Whalen MD Abdomen/Pelvis CT 10/31/16 0916 Signed Impressions: Service Date/Time: Monday, October 31, 2016 11:13 - CONCLUSION: 1. Inflammatory changes are seen about the distal abdominal aorta. There is prominent stranding/hazy opacity in the para-aortic fat. These findings are new when compared to the prior CTA of 09/14/2016. Findings indicate periaortitis. Aortic diameter is within normal limits. There is a small amount of new gas within the aortic wall in this region. 2. Chronic colonic diverticula cyst. Damir Garcia MD Maxillofacial CT 10/31/16 0000 Signed Impressions: Service Date/Time: Monday, October 31, 2016 17:14 - CONCLUSION: No abscess/fluid collection. Attila Whalen MD Abdomen Ultrasound 10/31/16 0000 Signed Impressions: Service Date/Time: Monday, October 31, 2016 14:08 - CONCLUSION: Nonobstructing calculus versus angiomyolipoma in the lower pole of the right kidney. Abdominal ultrasound otherwise within normal limits. Damir Garcia MD Objective Remarks GENERAL: This is a well-nourished, well-developed patient, in no apparent distress. CARDIOVASCULAR: Regular rate and rhythm without murmurs, gallops, or rubs. RESPIRATORY: Clear to auscultation. Breath sounds equal bilaterally. No wheezes , rales, or rhonchi. GASTROINTESTINAL: Abdomen soft, non-tender, nondistended. Normal active bowel sounds MUSCULOSKELETAL: Extremities without clubbing, cyanosis, or edema. NEURO: Alert & Oriented x4 to person, place, time, situation. Moves all ext x4 Date of Insertion: Oct 31, 2016 Line: Central Venous Catheter Side: Left Location: Internal, Jugular A/P Problem List: (1) Aortitis Status: Acute Plan: - comgmt with ID and CVS - Vancomycin 11/01 - 11/04 - zosyn 10/31 - present - blood cx (10/31/16) --> clostridium perfringens - repeat blood cx (10/2716) --> no growth - Repeat CT A/P --> 11/08 - Case d/w Dr. Cooper (11/05/16) (2) CAD (coronary artery disease) Status: Chronic Plan: - lisinopril, metoprolol (3) Ulcerative colitis Status: Acute Plan: - canasa, asacol (4) ETOHism Status: Acute (5) Hyperglyceridemia Status: Acute (6) Marijuana abuse Status: Acute (7) Tobacco use disorder Status: Acute (8) Alcohol abuse Status: Acute (9) PAD (peripheral artery disease) Status: Chronic (10) Hypertension Status: Chronic Plan: - lisinipril - metoprolol --> stop - procardia xl 30mg daily Problem Qualifiers (1) CAD (coronary artery disease): Qualified Code: I25.10 - Coronary artery disease involving [place] heart without angina pectoris, unspecified vessel or lesion type (2) Ulcerative colitis: Qualified Code: K51.919 - Ulcerative colitis with complication, unspecified location (3) Hypertension: Qualified Code: I10 - Essential hypertension Leon Abebe DO Nov 06, 2016 17:11
[2016-11-06] MEDS: PIPERACIL-TAZO 3.375 GM PREMIX 50 ML IV SCH ×2 (17:23→22:08)
[2016-11-06] MEDS: PRAVASTATIN SOD 40 MG TAB PO SCH (21:14)
[2016-11-06] MEDS: MESALAMINE 1000 MG SUPP PR SCH (22:10)
[2016-11-06] MEDS: TEMAZEPAM 15 MG CAP PO PRN (22:16)
[2016-11-06] MEDS: ACETAMINOPHEN/HYDROcodone 325 MG/5 MG TAB PO PRN (22:18)
[2016-11-07 00:28] VITALS: BP 110/54; PULSE 88; RESP 18; TEMP 97.9; O2SAT 95
[2016-11-07] MEDS: CHLORHEXIDINE GLUCONATE 2 % 1 PACK (2 CLOTHS) TOP SCH (04:00)
[2016-11-07] MEDS: CILOSTAZOL 50 MG TAB PO SCH ×2 (06:28→15:16)
[2016-11-07] MEDS: PIPERACIL-TAZO 3.375 GM PREMIX 50 ML IV SCH ×4 (06:28→23:28)
[2016-11-07 08:00] VITALS: BP 141/77; PULSE 87; RESP 17; TEMP 97.4; O2SAT 94
[2016-11-07] MEDS: ARTIFICIAL TEARS OPTH SOLN 15 ML BTL EACH EYE SCH ×3 (09:00→15:15)
[2016-11-07] MEDS: DOCUSATE SODIUM 100 MG CAP PO SCH ×2 (09:00→20:24)
[2016-11-07] MEDS: POLYETHYLENE GLYCOL 17 GM PKG PO SCH ×2 (09:00→20:23)
[2016-11-07] MEDS: MESALAMINE HD 800 MG DELAYED RELEASE TAB PO SCH ×2 (09:00→20:22)
[2016-11-07] MEDS: SODIUM CHLORIDE 0.9% FLUSH 5 ML FLUSH IVF SCH (09:00)
[2016-11-07] MEDS: LACTULOSE SYRUP 20 GM/30 ML CUP PO SCH ×4 (09:00→20:24)
[2016-11-07] MEDS: LISINOPRIL 20 MG TAB PO SCH ×2 (09:19→20:23)
[2016-11-07] MEDS: FOLIC ACID 1 MG TAB PO SCH (09:19)
[2016-11-07] MEDS: NIFEdipine 30 MG SUSTAINED RELEASE TAB PO SCH (09:22)
[2016-11-07] MEDS: MULTIVITAMIN TAB PO SCH (09:22)
[2016-11-07] MEDS: SODIUM CHLORIDE 0.9% FLUSH 5 ML FLUSH IV FLUSH SCH ×2 (09:24→21:00)
[2016-11-07] MEDS: PANTOPRAZOLE SODIUM 40 MG VIAL IV SCH (09:26)
[2016-11-07 12:00] VITALS: BP 142/93; PULSE 98; RESP 18; TEMP 97.6; O2SAT 96
[2016-11-07] MEDS: ACETAMINOPHEN/HYDROcodone 325 MG/5 MG TAB PO PRN ×2 (12:36→20:28)
[2016-11-07] MEDS: SENNOSIDES 8.6 MG TAB PO SCH (14:00)
[2016-11-07 16:00] VITALS: BP 138/84; PULSE 101; RESP 18; TEMP 96.3; O2SAT 97
[2016-11-07 20:00] VITALS: BP 135/78; PULSE 116; RESP 16; TEMP 97.1; O2SAT 96
[2016-11-07] MEDS: PRAVASTATIN SOD 40 MG TAB PO SCH (20:22)
[2016-11-07] MEDS: MESALAMINE 1000 MG SUPP PR SCH (20:23)
[2016-11-07] MEDS: TEMAZEPAM 15 MG CAP PO PRN (23:28)
[2016-11-08] VITALS: BP 105/62; PULSE 99; RESP 16; TEMP 97.8; O2SAT 93
[2016-11-08] MEDS: SENNOSIDES 8.6 MG TAB PO SCH ×2 (02:00→12:17)
[2016-11-08] MEDS: CHLORHEXIDINE GLUCONATE 2 % 1 PACK (2 CLOTHS) TOP SCH (04:00)
[2016-11-08] MEDS: PIPERACIL-TAZO 3.375 GM PREMIX 50 ML IV SCH ×4 (05:28→23:10)
[2016-11-08] MEDS: CILOSTAZOL 50 MG TAB PO SCH ×2 (05:28→16:34)
[2016-11-08 08:00] VITALS: BP 114/73; PULSE 96; RESP 17; TEMP 98; O2SAT 95
[2016-11-08 08:16] VITALS: O2SAT 98
[2016-11-08] MEDS: SODIUM CHLORIDE 0.9% FLUSH 5 ML FLUSH IVF SCH (09:00)
[2016-11-08] MEDS: POLYETHYLENE GLYCOL 17 GM PKG PO SCH ×2 (09:00→19:54)
[2016-11-08] MEDS: ARTIFICIAL TEARS OPTH SOLN 15 ML BTL EACH EYE SCH ×3 (09:00→16:35)
[2016-11-08] MEDS: LACTULOSE SYRUP 20 GM/30 ML CUP PO SCH ×4 (09:00→19:54)
[2016-11-08] MEDS: DOCUSATE SODIUM 100 MG CAP PO SCH ×2 (09:00→19:53)
[2016-11-08] MEDS: LISINOPRIL 20 MG TAB PO SCH ×2 (09:36→19:47)
[2016-11-08] MEDS: NIFEdipine 30 MG SUSTAINED RELEASE TAB PO SCH (09:37)
[2016-11-08] MEDS: FOLIC ACID 1 MG TAB PO SCH (09:37)
[2016-11-08] MEDS: MULTIVITAMIN TAB PO SCH (09:37)
[2016-11-08] MEDS: PANTOPRAZOLE SODIUM 40 MG VIAL IV SCH (09:40)
[2016-11-08] MEDS: SODIUM CHLORIDE 0.9% FLUSH 5 ML FLUSH IV FLUSH SCH ×2 (09:41→19:53)
[2016-11-08] MEDS: MESALAMINE HD 800 MG DELAYED RELEASE TAB PO SCH ×2 (09:47→19:46)
[2016-11-08] MEDS ORDERED: IOHEXOL 350 MG/ML 10 ML VIAL (for RAD DIAG) IV ONE (10:07)
--- NOTE | 2016-11-08 10:35 | RADRPT ---
EXAM DATE/TIME: 11/08/2016 10:05 [facility] COMPARISON: CTA THORACIC ABDOMINAL AORTA W 3D RECON, September 14, 2016, 10:07. CT ABDOMEN & PELVIS W CONTRAST, 2016, 11:13. INDICATIONS : Evaluate for aortitis. IV CONTRAST: 71 cc Omnipaque 350 (iohexol) IV ORAL CONTRAST: No oral contrast ingested. RADIATION DOSE: 12.24 CTDIvol (mGy) MEDICAL HISTORY : Cardiovascular disease. SURGICAL HISTORY : Pacemaker. ENCOUNTER: Initial ACUITY: 3 days PAIN SCALE: 4/10 LOCATION: Bilateral chest TECHNIQUE: Volumetric scanning of the abdomen and pelvis was performed. Using automated exposure control and ad justment of the mA and/or kV according to patient size, radiation dose was kept as low as reasonably achievable to obtain optimal diagnostic quality images. FINDINGS: LOWER LUNGS: The visualized lower lungs are clear. Patient is post mitral valve replacement. Cardiac pacing wires are seen. LIVER: Homogeneous density without lesion. There is no dilation of the biliary tree. No calcified gallston es. SPLEEN: Normal size without lesion. PANCREAS: Within normal limits. KIDNEYS: Normal in size and shape. There is no mass, stone or hydronephrosis. There is a stable 5 mm low-dens ity lesion in the lower pole of the right kidney that is too small to characterize. ADRENAL GLANDS: Within normal limits. VASCULAR: There is severe atherosclerotic disease. Bilateral common iliac artery stents remain present. There i s abnormal soft tissue density surrounding the proximal infrarenal aorta and in an aortocaval locatio n. This is new since the prior study. Previously in this location there was inflammation of this fat. As described previously these findings are new since 09/14/2016. The abnormal soft tissue partially en cases the aorta. No gas or fistula is visualized. The aorta is normal in size. The abnormal tissue do es not involve or encase the ureters. BOWEL/MESENTERY: The stomach, small bowel, and colon demonstrate no acute abnormality. There is no free intraperitone al air or fluid. There is mild sigmoid diverticulosis. ABDOMINAL WALL: Within normal limits. RETROPERITONEUM: There is no lymphadenopathy. BLADDER: No wall thickening or mass. REPRODUCTIVE: Within normal limits. INGUINAL: There is no lymphadenopathy or hernia. MUSCULOSKELETAL: There are degenerative changes of the spine. Patient is post median sternotomy. CONCLUSION: 1. Continued evolution of the changes involving the proximal infrarenal abdominal aorta. The inflamma tion documented previously has now organized to represent abnormal soft tissue, likely retroperitonea l fibrosis that has developed in response to the previously described aortitis. The aorta demonstrate s severe atherosclerotic change but there is no aneurysm or gas present. The presumed retroperitoneal fibrosis does not encase the ureter. 2. Otherwise, there has been no significant interval change since the prior study. Paul Ngo MD on November 08, 2016 at 10:26 Board Certified Radiologist. This report was verified electronically.
[2016-11-08 12:00] VITALS: BP 138/82; PULSE 98; RESP 16; TEMP 97.5; O2SAT 96
[2016-11-08] MEDS: ACETAMINOPHEN/HYDROcodone 325 MG/5 MG TAB PO PRN ×3 (14:31→23:47)
--- NOTE | 2016-11-08 15:23 | HHI.PR ---
Subjective Remarks No new complaints. Objective Vitals Vital Signs Date Time Temp Pulse Resp B/P Pulse Ox O2 Delivery O2 Flow Rate FiO2 11/08/16 12:00 97.5 98 16 138/82 96 11/08/16 08:16 98 21 11/08/16 08:00 98.0 96 17 114/73 95 11/08/16 00:00 97.8 99 16 105/62 93 11/07/16 21:28 18 11/07/16 20:00 97.1 116 16 135/78 96 11/07/16 16:00 96.3 101 18 138/84 97 11/07/16 11/07/16 11/08/16 15:00 23:00 07:00 Intake Total 1170 ml 360 ml 240 ml Output Total 100 ml Balance 1070 ml 360 ml 240 ml Intake Oral 1120 ml 360 ml 240 ml IV Total 50 ml Output Urine Total 100 ml # Voids 5 2 2 # Bowel Movements 2 0 0 Result Diagram: 11/05/16 0824 11/04/16 0442 Imaging Last Impressions Abdomen/Pelvis CT 11/08/16 0800 Signed Impressions: Service Date/Time: Tuesday, November 08, 2016 10:05 - CONCLUSION: 1. Continued evolution of the changes involving the proximal infrarenal abdominal aorta. 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 The aorta demonstrates severe atherosclerotic change but there is no aneurysm or gas present. The presumed retroperitoneal fibrosis does not encase the ureter. 2. Otherwise, there has been no significant interval change since the prior study. Paul Ngo MD Chest X-Ray 11/05/16 0000 Signed Impressions: Service Date/Time: November 18:13 - CONCLUSION: No acute cardiopulmonary disease. Nickolas Betancourt MD ADDENDUM: A left upper extremity PICC line has been inserted and appears to be in good position. The tip is at the caval atrial junction. Left jugular line has been removed. Dominick Kitchen MD Maxillofacial CT 10/31/16 0000 Signed Impressions: Service Date/Time: Monday, October 31, 2016 17:14 - CONCLUSION: No abscess/fluid collection. Attila Whalen MD Abdomen Ultrasound 10/31/16 0000 Signed Impressions: Service Date/Time: Monday, October 31, 2016 14:08 - CONCLUSION: Nonobstructing calculus versus angiomyolipoma in the lower pole of the right kidney. Abdominal ultrasound otherwise within normal limits. Damir Garcia MD Objective Remarks GENERAL: This is a well-nourished, well-developed patient, in no apparent distress. CARDIOVASCULAR: Regular rate and rhythm without murmurs, gallops, or rubs. RESPIRATORY: Clear to auscultation. Breath sounds equal bilaterally. No wheezes , rales, or rhonchi. GASTROINTESTINAL: Abdomen soft, non-tender, nondistended. Normal active bowel sounds MUSCULOSKELETAL: Extremities without clubbing, cyanosis, or edema. NEURO: Alert & Oriented x4 to person, place, time, situation. Moves all ext x4 Date of Insertion: Oct 31, 2016 Line: Central Venous Catheter Side: Left Location: Internal, Jugular A/P Problem List: (1) Aortitis Status: Acute Plan: - comgmt with ID and CVS - Vancomycin 11/01 - 11/04 - zosyn 10/31 - present - blood cx (10/31/16) --> clostridium perfringens - repeat blood cx (10/2716) --> no growth - Repeat CT A/P --> 11/08 Continued evolution of the changes involving the proximal infrarenal abdominal aorta. 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 The aorta demonstrates severe atherosclerotic change but there is no aneurysm or gas present. The presumed retroperitoneal fibrosis does not encase the ureter. - Case d/w Dr. Cooper (11/08/16). He will review the study tomorrow and discuss case with ID and medical team - anticipate d/c to home in next 1-2 days. (2) CAD (coronary artery disease) Status: Chronic Plan: - lisinopril, metoprolol (3) Ulcerative colitis Status: Acute Plan: - canasa, asacol (4) ETOHism Status: Acute (5) Hyperglyceridemia Status: Acute (6) Marijuana abuse Status: Acute (7) Tobacco use disorder Status: Acute (8) Alcohol abuse Status: Acute (9) PAD (peripheral artery disease) Status: Chronic (10) Hypertension Status: Chronic Plan: - lisinipril - metoprolol --> stop - procardia xl 30mg daily Problem Qualifiers (1) CAD (coronary artery disease): Qualified Code: I25.10 - Coronary artery disease involving [place] heart without angina pectoris, unspecified vessel or lesion type (2) Ulcerative colitis: Qualified Code: K51.919 - Ulcerative colitis with complication, unspecified location (3) Hypertension: Qualified Code: I10 - Essential hypertension Leon Abebe DO Nov 08, 2016 15:23
[2016-11-08 16:00] VITALS: BP 139/77; PULSE 107; RESP 16; TEMP 97.9; O2SAT 95
[2016-11-08] MEDS: PRAVASTATIN SOD 40 MG TAB PO SCH (19:47)
[2016-11-08] MEDS: MESALAMINE 1000 MG SUPP PR SCH ×2 (19:54→20:00)
[2016-11-08 20:00] VITALS: BP 136/81; PULSE 106; RESP 16; TEMP 97.8; O2SAT 97
[2016-11-08] MEDS: TEMAZEPAM 15 MG CAP PO PRN (23:10)
[2016-11-09] VITALS: BP 122/78; PULSE 101; RESP 16; TEMP 98.1; O2SAT 93
[2016-11-09] MEDS: SENNOSIDES 8.6 MG TAB PO SCH ×2 (02:00→11:41)
[2016-11-09] MEDS: CHLORHEXIDINE GLUCONATE 2 % 1 PACK (2 CLOTHS) TOP SCH (04:00)
[2016-11-09] MEDS: CILOSTAZOL 50 MG TAB PO SCH ×2 (05:53→16:11)
[2016-11-09] MEDS: PIPERACIL-TAZO 3.375 GM PREMIX 50 ML IV SCH ×3 (05:53→16:11)
[2016-11-09 08:00] VITALS: BP 112/68; PULSE 92; RESP 16; TEMP 96.4; O2SAT 96
[2016-11-09] MEDS: DOCUSATE SODIUM 100 MG CAP PO SCH (09:00)
[2016-11-09] MEDS: ARTIFICIAL TEARS OPTH SOLN 15 ML BTL EACH EYE SCH (09:00)
[2016-11-09] MEDS: POLYETHYLENE GLYCOL 17 GM PKG PO SCH (09:00)
[2016-11-09] MEDS: LACTULOSE SYRUP 20 GM/30 ML CUP PO SCH ×2 (09:00→11:40)
[2016-11-09] MEDS: MESALAMINE HD 800 MG DELAYED RELEASE TAB PO SCH (09:00)
--- NOTE | 2016-11-09 09:05 | HHI.PR ---
Subjective Remarks Pt reports that he is feeling well overall. He is eating well. His bowel movements have formed up Pt is ambulating without difficulty. Objective Vitals Vital Signs Date Time Temp Pulse Resp B/P Pulse Ox O2 Delivery O2 Flow Rate FiO2 11/09/16 08:00 96.4 92 16 112/68 96 11/09/16 00:00 98.1 101 16 122/78 93 11/08/16 20:52 16 11/08/16 20:00 97.8 106 16 136/81 97 11/08/16 16:00 97.9 107 16 139/77 95 11/08/16 12:00 97.5 98 16 138/82 96 11/08/16 11/08/16 11/09/16 14:59 22:59 06:59 Intake Total 1830 ml 360 ml 460 ml Output Total 450 ml Balance 1830 ml 360 ml 10 ml Intake Oral 1680 ml 360 ml 360 ml IV Total 150 ml 100 ml Output Urine Total 450 ml # Voids 7 2 3 # Bowel Movements 2 2 0 Result Diagram: 11/05/16 0824 Other Results Laboratory Tests Test 11/09/16 05:20 Erythrocyte Sedimentation Rate 69 mm/hr Imaging Last Impressions Abdomen/Pelvis CT 11/08/16 0800 Signed Impressions: Service Date/Time: Tuesday, November 08, 2016 10:05 - CONCLUSION: 1. Continued evolution of the changes involving the proximal infrarenal abdominal aorta. 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 The aorta demonstrates severe atherosclerotic change but there is no aneurysm or gas present. The presumed retroperitoneal fibrosis does not encase the ureter. 2. Otherwise, there has been no significant interval change since the prior study. Paul Ngo MD Chest X-Ray 11/05/16 0000 Signed Impressions: Service Date/Time: November 18:13 - CONCLUSION: No acute cardiopulmonary disease. Nickolas Betancourt MD ADDENDUM: A left upper extremity PICC line has been inserted and appears to be in good position. The tip is at the caval atrial junction. Left jugular line has been removed. Dominick Kitchen MD Maxillofacial CT 10/31/16 0000 Signed Impressions: Service Date/Time: Monday, October 31, 2016 17:14 - CONCLUSION: No abscess/fluid collection. Attila Whalen MD Abdomen Ultrasound 10/31/16 0000 Signed Impressions: Service Date/Time: Wednesday, October 31, 2016 14:08 - CONCLUSION: Nonobstructing calculus versus angiomyolipoma in the lower pole of the right kidney. Abdominal ultrasound otherwise within normal limits. Damir Garcia MD Objective Remarks General: NAD, AAOx3 Chest: CTA Cardiac: Regular Abd: +Bs, soft ND/NT Ext: No edema Date of Insertion: Oct 31, 2016 Line: Central Venous Catheter Side: Left Location: Internal, Jugular A/P Problem List: (1) Aortitis Status: Acute Plan: - Pt presented with a 5 day history of fatigue, fevers, nausea/vomiting and abdominal pain. - CT chest revealed inflammation of the distal abdominal aorta stranding with gas in the wall of the aorta likely indicating aortitis. - Pt had a known dental infection and GIB around same time early September 2016 and had EGD and colonoscopy September 2016 - He was supposed to get dental extraction, but patient did not show up for his appointment, no symptoms currently - comgmt with ID and CVS - Vancomycin 11/01 - 11/04 - Zosyn 10/31 - present - blood cx (10/31/16) --> clostridium perfringens, Clostridium is GI meghan, ? seeding post endoscopy - repeat blood cx (10/2716) --> no growth - Repeat CT A/P (11/08)--> Continued evolution of the changes involving the proximal infrarenal abdominal aorta. 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 The aorta demonstrates severe atherosclerotic change but there is no aneurysm or gas present. The presumed retroperitoneal fibrosis does not encase the ureter. - Dr. Cooper to review the case and discuss with ID and medical team today for further recommendations. - anticipate d/c to home in next 1-2 days. (2) CAD (coronary artery disease) Status: Chronic Plan: - Stable. - Cont. lisinopril, Procardia XL (3) Hypertension Status: Chronic Plan: - Stable. - lisinopril - metoprolol --> stopped 11/05 - Procardia XL 30mg daily started on 11/05 (4) Ulcerative colitis Status: Acute Plan: - canasa, asacol (5) ETOHism Status: Acute (6) Marijuana abuse Status: Acute (7) Tobacco use disorder Status: Acute (8) Alcohol abuse Status: Acute (9) PAD (peripheral artery disease) Status: Chronic Problem Qualifiers (1) CAD (coronary artery disease): Qualified Code: I25.10 - Coronary artery disease involving [place] heart without angina pectoris, unspecified vessel or lesion type (2) Hypertension: Qualified Code: I10 - Essential hypertension (3) Ulcerative colitis: Qualified Code: K51.919 - Ulcerative colitis with complication, unspecified location Rosie Liu Nov 09, 2016 09:05
[2016-11-09] MEDS ORDERED: PANTOPRAZOLE SOD 40 MG DELAYED RELEASE TAB PO SCH (09:15)
[2016-11-09] MEDS: FOLIC ACID 1 MG TAB PO SCH (10:15)
[2016-11-09] MEDS: MULTIVITAMIN TAB PO SCH (10:15)
[2016-11-09] MEDS: NIFEdipine 30 MG SUSTAINED RELEASE TAB PO SCH (10:15)
[2016-11-09] MEDS: LISINOPRIL 20 MG TAB PO SCH (10:15)
[2016-11-09] MEDS: SODIUM CHLORIDE 0.9% FLUSH 5 ML FLUSH IV FLUSH SCH (10:16)
[2016-11-09] MEDS: SODIUM CHLORIDE 0.9% FLUSH 5 ML FLUSH IVF SCH (10:17)
[2016-11-09 12:00] VITALS: BP 115/66; PULSE 108; RESP 17; TEMP 97.9; O2SAT 95
[2016-11-09] MEDS ORDERED: NIFE30TA8 PO (12:00)
--- NOTE | 2016-11-09 12:05 | HHI.FF ---
Face to Face Verification Diagnosis: (1) Aortitis (2) Hypertension (3) PAD (peripheral artery disease) (4) Sepsis (5) IBD (inflammatory bowel disease) (6) CAD (coronary artery disease) (7) Marijuana abuse (8) Tobacco use disorder Home Health Nursing Order: Signs/symptoms of disease process Nursing assessment with vital signs IV medication administration Instructions: Please draw labs weekly per Dr. Watkins's antibiotic order form I have seen patient Aden Guadalupe Jr Luis on 11/09/16. My clinical findings support the need for the requested home health care services because: Infection w/ risk of complications Injectable med education/admin I certify that my clinical findings support that this patient is homebound because: Unable to use public transportation Rosie Liu Nov 09, 2016 12:05 Tyrell Willams MD Nov 09, 2016 12:06
--- NOTE | 2016-11-09 12:06 | HHI.DCPOC ---
Discharge Care Plan Diagnosis: (1) Aortitis (2) Sepsis (3) Hypertension (4) Ulcerative colitis (5) PAD (peripheral artery disease) (6) Tobacco use disorder (7) Marijuana abuse (8) CAD (coronary artery disease) Goals to Promote Your Health * To prevent worsening of your condition and complications * To maintain your health at the optimal level Directions to Meet Your Goals Take your medications as prescribed Follow your dietary instruction Follow activity as directed Keep your appointments as scheduled Take your immunizations and boosters as scheduled If your symptoms worsen call your PCP, if no PCP go to Urgent Care Center or Emergency Room Smoking is Dangerous to Your Health. Avoid second hand smoke Call the 24-hour hour crisis hotline for domestic abuse at Rosie Liu Nov 09, 2016 12:06
--- NOTE | 2016-11-09 12:33 | HHI.DS ---
Discharge Summary Admission Date Oct 31, 2016 at 13:40 Discharge Date: Nov 09, 2016 Admitting Diagnosis Sepsis, periaortitis (1) Aortitis Diagnosis: Principal (2) CAD (coronary artery disease) Diagnosis: Secondary (3) Hypertension Diagnosis: Secondary (4) Ulcerative colitis Diagnosis: Secondary (5) ETOHism Diagnosis: Secondary (6) Marijuana abuse Diagnosis: Secondary (7) Tobacco use disorder Diagnosis: Secondary (8) Alcohol abuse Diagnosis: Secondary (9) PAD (peripheral artery disease) Diagnosis: Secondary Consultants Dr. Tierra Cooper - Vascular Surgery Dr. Naheed Watkins - Infectious Disease Brief History Mr. Smith is a 66 y/o WM with peripheral vascular disease, peripheral arterial disease, CABG 3/MVR, Ulcerative Colitis, Hypertension, Dyslipidemia, Coronary Disease, History of TIA, Tobaccoism Prior, THC and EtOH Use. Patient has a history of a known dental abscess lower jaw 6 weeks. He presented to the ED at [facility] on 10/31/16 with a 5 day history of fatigue, fevers, nausea/ vomiting, and abdominal pain. CT chest revealed inflammation of the distal abdominal aorta stranding with gas in the wall of the aorta likely indicating aortitis. Incidentally noted was a 2.6 cm duodenal diverticula at the head of the pancreas. Initially the patient was hypertensive with a normal white blood cell count. Patient deteriorated requiring 4 L normal saline placement of central line and was admitted to ICU under the care of the core fitter. CBC/BMP: 11/05/16 0824 Significant Findings Laboratory Tests Test 11/09/16 05:20 Erythrocyte Sedimentation Rate 69 mm/hr (0-20) Imaging Last Impressions Abdomen/Pelvis CT 11/08/16 0800 Signed Impressions: Service Date/Time: Tuesday, November 08, 2016 10:05 - CONCLUSION: 1. Continued evolution of the changes involving the proximal infrarenal abdominal aorta. 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 The aorta demonstrates severe atherosclerotic change but there is no aneurysm or gas present. The presumed retroperitoneal fibrosis does not encase the ureter. 2. Otherwise, there has been no significant interval change since the prior study. Paul Ngo MD Chest X-Ray 11/05/16 0000 Signed Impressions: Service Date/Time: November 18:13 - CONCLUSION: No acute cardiopulmonary disease. Nickolas Betancourt MD ADDENDUM: A left upper extremity PICC line has been inserted and appears to be in good position. The tip is at the caval atrial junction. Left jugular line has been removed. Dominick Kitchen MD Maxillofacial CT 10/31/16 0000 Signed Impressions: Service Date/Time: Monday, October 31, 2016 17:14 - CONCLUSION: No abscess/fluid collection. Attila Whalen MD Abdomen Ultrasound 10/31/16 0000 Signed Impressions: Service Date/Time: Monday, October 31, 2016 14:08 - CONCLUSION: Nonobstructing calculus versus angiomyolipoma in the lower pole of the right kidney. Abdominal ultrasound otherwise within normal limits. Damir Garcia MD PE at Discharge General: NAD, AAOx3 Chest: CTA Cardiac: Regular Abd: +Bs, soft ND/NT Ext: No edema Hospital Course Pt presented with a 5 day history of fatigue, fevers, nausea/vomiting and abdominal pain. CT Abd/pelvis revealed inflammatory changes of the distal abdominal aorta with stranding in the para-aortic fat and a small amount of gas in the aortic wall likely indicating aortitis. Initially the patient was hypertensive with a normal white blood cell count. In the ED he deteriorated requiring 4 L normal saline and placement of central line. He was admitted to the ICU under the case of the Intensivists. Vascular surgery and ID were consulted at admission. Vascular surgery initially recommended conservative management with antibiotics. Pt had a previous known dental infection and GIB around same time in early September 2016 and had EGD and colonoscopy September 2016. He was supposed to get dental extraction, but patient did not show up for his appointment, no symptoms currently. Blood cultures from 10/31/16 revealed clostridium perfringens, and ID felt that this could be related to seeding post endoscopy. Pt was treated with Vancomycin 11/01 - 11/04 which was then switched to Zosyn 10/31 - . Repeat blood cx (10/2716) have had NGTD. Repeat CT A/P (11/08 ) indicated continued evolution of the changes involving the proximal infrarenal abdominal aorta. 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 The aorta demonstrates severe atherosclerotic change but there is no aneurysm or gas present. The presumed retroperitoneal fibrosis does not encase the ureter. Once the pts blood pressure improved he was continued on Lisinopril 20mg BID and Metoprolol. Despite this her BP started to elevate further. His Metoprolol was stopped on 11/05 and Procardia XL 30mg daily started on 11/05. His BP has been stable on this regimen. Dr. Cooper reviewed the case and pt is not recommended for surgical intervention at this time. He is recommended to have a repeat CT Abd/pelvis in 2 weeks and followup with Dr. Cooper in 3 weeks. He is going to be continued on Zosyn 3.375mg q6h x until Dec 12, 2016. He will have weekly labs, CBC, creat, LFT, ESR and CRP, to be drawn by [facility] and is to followup with Dr. Mellissa Harris in 10 days. Pt is to followup with Dr. Garcia in 1 week. Pt Condition on Discharge: Stable Discharge Disposition: Disch w/ Home Health Serv Discharge Instructions DIET: Follow Instructions for: Heart Healthy Diet Activities you can perform: See Additionl Instruction Other Activity Instructions: No heavy lifting over [address] Cooper for any further instructions/limitations for activity Follow up Referrals: Infectious Disease - [address] Mellissa Harris PCP Follow-up - [address] Galindo Garcia [facility]/ with [facility] Vascular Surgery - 3 Weeks with Tierra Cooper MD New Medications: Nifedipine ER 24 HR (Nifedipine ER 24 HR) 30 Mg Tab 30 MG PO DAILY Blood Pressure Management #31 TAB Continued Medications: Cilostazol (Cilostazol) 50 Mg Tab 50 MG PO BID INTERMITTENT CLAUDICATION Ref 0 TAB Clopidogrel (Plavix) 75 Mg Tab 75 MG PO DAILY Blood Clot Prevention #30 Ref 0 TAB Lisinopril (Lisinopril) 20 Mg Tab 20 MG PO BID #30 Ref 0 TAB Lovastatin (Lovastatin) 40 Mg Tab 80 MG PO HS Cholesterol Management #[address] (Asacol HD) 800 Mg Tab 800 MG PO BID Swallow whole. Take on an empty stomach. Ulcerative colitis Ref 0 TAB Mesalamine Supp (Canasa Supp) 1,000 Mg Supp 1000 MG RI HS Ulcerative proctitis #30 Ref 0 SUPP Multiple Vitamin (Multi Vitamin) 1 Tab Tab 1 TAB PO DAILY TAB Pantoprazole (Protonix) 40 Mg Tab 40 MG PO BID Ulcer Prevention #60 Ref 6 TAB Discontinued Medications: Metoprolol Tartrate (Metoprolol Tartrate) 25 Mg Tab 12.5 MG PO BID #60 Ref 0 TAB Rosie Liu Nov 09, 2016 12:33 Tyrell Willams MD Nov 09, 2016 14:48
--- NOTE | 2016-11-09 12:37 | HHI.FF ---
Infusion Therapy Location of Infusion Therapy: Home Health Care IV Infusion Order Patient Information Patient Weight 79 kg Diagnosis: Diagnosis Periaortitis distal aorta, Clostridium perfringens sepsis Coded Allergies: MRI PRECAUTION (Verified Allergy, Severe, PACEMAKER LEAD PER DR MARTINEZ - 08/01/2010 KMD, 10/31/16) Nitrates (Verified Allergy, Severe, Hypotension, 10/31/16) Administer Medication Piperacillin/Tazobactam 3.375 grams IV q 6 hours Zosyn 3.375 gm IV q6H CADD plus pump Stop Treatment: Dec 12, 2016 Additional Information Venous access: PICC Line Additional Instructions [x] Peripheral flush and dressing changes per protocol [x] Implanted port and central millinery designer: * Implanted port: 10 ml Normal Saline followed by 5 ml Heparin 100 units/ml Heparin flush after each use and monthly to maintain. [] May leave port accessed during therapy. [] May leave peripheral site accessed for duration of therapy. [x] If patient has SOB or respiratory distress, check oxygen saturation. If less than 90% or clinical signs of respiratory distress, administer oxygen at 2 L/min. via nasal cannula and notify physician. [x] Anaphylaxis/Reaction orders: * Stop infusion. * Keep IV line open with saline flush. * Notify physician. * Monitor vital signs every 15 minutes until symptoms resolve. * Check Oxygen saturation; Oxygen at 2 L/min. via nasal cannula if less than 90% or clinical signs of respiratory distress. * Administer diphenhydramine (Benadryl) 25 mg IV STAT, (unless patient has received as pre-med). May repeat once, if necessary. * Solu-Cortef 250 mg IVP over 30-60 seconds, use 100 mg vials for each dissolution. * Epinephrine (1mg/1 ml) 0.3 mg subcutaneously or IVP now with any signs of respiratory distress. * Check with physician for new additional pre-med orders if patient is re- challenged or re-treated. [x] May remove PICC line when treatment complete, after confirming with Physician. [x] If the patient is admitted to the hospital, the ED, or transferred via [facility] , complete transfer form including medication reconciliation order sheet. Laboratory Tests Weekly Labs: CBC w/diff, Creatinine, LFT's (Hepatic function test), SED Rate ( Labs every Wednesday, copy to me, Dr harris, Dr Cooper and Dr Galindo Garcia) Additional Information Please have patient follow-up with Dr Harris for ID follow-up Naheed Watkins MD Nov 09, 2016 12:37
--- NOTE | 2016-11-09 12:45 | HHI.IDPN ---
Subjective Subjective Remarks Notes reviewed Temps normal Repeat CT report noted ESR down to 69 2 BC on admission with Clostridium perfringens Follow up BC negative No abdominal pain No N/V No rash or itching WBC better Creatinine down to normal ESR >140 CRP 13.6 Antibiotics Zosyn Lines PICC Past Medical History Ulcerative colitis Peripheral vascular disease THC use Tobaccoism Coronary artery disease Hypertension Dyslipidemia History of claudication ETOH use Gastric ulcer, previous GIB Past Surgical History Bilateral lower extremity iliac stents Left carotid endarterectomy 2010 CABG 3 2001 CABG 1, MV ring annuloplasty 2009 Allergies: Coded Allergies: MRI PRECAUTION (Verified Allergy, Severe, PACEMAKER LEAD PER DR MARTINEZ - 08/01/2010 KMD, 10/31/16) Nitrates (Verified Allergy, Severe, Hypotension, 10/31/16) Objective . Vital Signs Date Time Temp Pulse Resp B/P Pulse Ox O2 Delivery O2 Flow Rate FiO2 11/09/16 08:00 96.4 92 16 112/68 96 11/09/16 00:00 98.1 101 16 122/78 93 11/08/16 20:52 16 11/08/16 20:00 97.8 106 16 136/81 97 11/08/16 16:00 97.9 107 16 139/77 95 11/08/16 11/08/16 11/09/16 15:00 23:00 07:00 Intake Total 1830 ml 360 ml 460 ml Output Total 450 ml Balance 1830 ml 360 ml 10 ml Intake Oral 1680 ml 360 ml 360 ml IV Total 150 ml 100 ml Output Urine Total 450 ml # Voids 7 2 3 # Bowel Movements 2 2 0 . Laboratory Tests Test 11/09/16 05:20 Erythrocyte Sedimentation Rate 69 mm/hr Imaging Chest X-Ray 10/31/16 1508 Signed Impressions: Service Date/Time: Monday, October 31, 2016 15:01 - CONCLUSION: Adequate placement of left jugular central line. Attila Whalen MD Abdomen/Pelvis CT 10/31/16 0902 Signed Impressions: Service Date/Time: Monday, October 31, 2016 11:13 - CONCLUSION: 1. Inflammatory changes are seen about the distal abdominal aorta. There is prominent stranding/hazy opacity in the para-aortic fat. These findings are new when compared to the prior CTA of 09/14/2016. Findings indicate periaortitis. Aortic diameter is within normal limits. There is a small amount of new gas within the aortic wall in this region. 2. Chronic colonic diverticula cyst. Damir Garcia MD Maxillofacial CT 10/31/16 0000 Signed Impressions: Service Date/Time: Monday, October 31, 2016 17:14 - CONCLUSION: No abscess/fluid collection. Attila Whalen MD Abdomen Ultrasound 10/31/16 0000 Signed Impressions: Service Date/Time: Monday, October 31, 2016 14:08 - CONCLUSION: Nonobstructing calculus versus angiomyolipoma in the lower pole of the right kidney. Abdominal ultrasound otherwise within normal limits. Damir Garcia MD Physical Exam GENERAL: Awake and alert, NAD SKIN: Warm and dry. No generalized rash. HEENT: [place] conjunctivae. No scleral icterus. Moist oral mucosa. NECK: Supple, nontender, no meningeal signs. CARDIOVASCULAR: Regular rate and rhythm without murmurs, gallops, or rubs. No murmur. Healed sternotomy incision. RESPIRATORY: Clear to auscultation. Breath sounds equal bilaterally. No wheezes , rales, or rhonchi. GASTROINTESTINAL: Abdomen soft, non-tender, not distended. Bowel sounds are present and normoactive. No guarding. No rebound. MUSCULOSKELETAL: Extremities without clubbing, cyanosis, or edema. No calf tenderness. NEUROLOGICAL: Grossly non-focal PSYCH: Normal affect, calm and cooperative Assessment & Plan Remarks IMPRESSION Sepsis on presentation, better (+) BC with Clostridium perfringens - Clostridium is GI meghan, ?seeding post endoscopy Periaortitis in distal aorta - had dental infection and GIB around same time early September 2016 - had EGD and colonoscopy September 2016 - was supposed to get dental extraction, but patient did not show up for his appointment, no symptoms currently Hx CAD, S/P CABG and MV ring annuloplasty PVD RECOMMENDATION Continue Zosyn Plan 6 weeks IV Abx Abx form filled out End date Dec 8 Labs weekly CBC, creat, LFT, ESR and CRP Fup with Dr Harris Repeat CT A/P in 2 weeks D/W Dr Rush Explained plan to the patient and answered all his questions Naheed Watkins MD Nov 09, 2016 12:45
== END 2016-11-09 17:45 | disposition home health service (06) | DRG 872 ==
LOC: NEPA 08:59 → NEDA 13:40 → HIME 17:50 → N07A 11-06 13:36
PROVIDERS: ADMIT Internal Medicine Critical Care Medicine; ATTEND Internal Medicine Critical Care Medicine
PROC: 02HV33Z Insertion of Infusion Device into Superior Vena Cava, Percutaneous Approach (ICD-10-PCS; principal; 2016-10-31)
PROC: B544ZZA Ultrasonography of Left Jugular Veins, Guidance (ICD-10-PCS; 2016-10-31)
DX: A41.4 Sepsis due to anaerobes (principal); N17.9 Acute kidney failure, unspecified; E87.2 Acidosis; E87.1 Hypo-osmolality and hyponatremia; K51.90 Ulcerative colitis, unspecified, without complications; I08.1 Rheumatic disorders of both mitral and tricuspid valves; I77.6 Arteritis, unspecified; E78.1 Pure hyperglyceridemia; I25.10 Atherosclerotic heart disease of native coronary artery without angina pectoris; I73.9 Peripheral vascular disease, unspecified; I10 Essential (primary) hypertension; K59.00 Constipation, unspecified; G47.00 Insomnia, unspecified; R73.9 Hyperglycemia, unspecified; K21.9 Gastro-esophageal reflux disease without esophagitis; D64.9 Anemia, unspecified; N13.5 Crossing vessel and stricture of ureter without hydronephrosis; N40.0 Benign prostatic hyperplasia without lower urinary tract symptoms; F10.20 Alcohol dependence, uncomplicated; F12.10 Cannabis abuse, uncomplicated; F17.290 Nicotine dependence, other tobacco product, uncomplicated; Z72.89 Other problems related to lifestyle; Z86.73 Personal history of transient ischemic attack (TIA), and cerebral infarction without residual deficits; Z91.19 Patient's noncompliance with other medical treatment and regimen; Z95.0 Presence of cardiac pacemaker; Z95.1 Presence of aortocoronary bypass graft; Z95.2 Presence of prosthetic heart valve
CPT/HCPCS: 36430; 36569; 70486; 71010; 71020; 74177; 76700; 76937; 80048; 80053; 80076; 80202; 81001; 82140; 82550; 82948; 83605; 83690; 83735; 84100; 84484; 85007; 85025; 85027; 85610; 85652; 85730; 86140; 86850; 86900; 86901; 86920; 87040; 87205; 87641; 93306; 94150; 94640; 94664; 96361; 96365; 96375; C9113; J1642; J1940; J2060; J2270; J2405; J2543; J3370; J3411; J7030; J7040; J7050; P9016; Q9963; Q9967

== ENCOUNTER 2016-11-16 11:28 | Emergency (ER) | payer MEDICARE ==
[~2016-11-16] VITALS: Ht 177.8 cm; Wt 75.0 kg
[2016-11-16] VITALS (8 sets, daily range): BP systolic 120–138; BP diastolic 66–89; PULSE 109–120; RESP 20; TEMP 97.9; O2SAT 96–100
[~2016-11-16 11:28] MED LIST changes: -ASPI325T PO; -METO25TA3 PO; +NIFE30TA8 PO
[2016-11-16] MEDS ORDERED: SODIUM CHLORIDE 0.9% FLUSH 5 ML FLUSH IVF PRN (12:00)
[2016-11-16 12:48] LABS: AUTOMATED NEUTROPHIL # 4.6 TH/MM3 (1.8-7.7); BASOPHIL # 0.1 TH/MM3 (0-0.2); BASOPHIL % 1.1 % (0.0-2.0); EOSINOPHIL # 0.1 TH/MM3 (0-0.4); EOSINOPHIL % 1.1 % (0.0-4.0); HEMATOCRIT 38.1 % (39.0-51.0); HEMO FLAGS DIFF FINAL; LYMPH % 16.1 % (9.0-44.0); LYMPHOCYTE # 1.1 TH/MM3 (1.0-4.8); MEAN CELL VOLUME 79.1 FL (80.0-100.0); MEAN CORPUSCULAR HEMOGLOBIN 26.1 PG (27.0-34.0); MONO % 12.4 % (0.0-8.0); NEUT % 69.3 % (16.0-70.0); PLATELET COUNT 509 TH/MM3 (150-450); RED BLOOD COUNT 4.81 MIL/MM3 (4.50-5.90); RED CELL DISTRIBUTION WIDTH 17.5 % (11.6-17.2); WHITE BLOOD COUNT 6.7 TH/MM3 (4.0-11.0)
[2016-11-16 12:55] LABS: APTT (PATIENT) 30.2 SEC (24.3-30.1); PROTHROMBIN TIME - PATIENT 11.3 SEC (9.8-11.6)
[2016-11-16 13:04] LABS: BLOOD, URINE NEG (NEG); GLUCOSE,URINE NEG (NEG); KETONE, URINE NEG (NEG); NITRITE,URINE NEG (NEG); PH, URINE 7.5 (5.0-8.5); URINE COLOR YELLOW (YELLW/STRAW)
[2016-11-16 13:06] LABS: COMMENT (UR) CULT NOT INDICATED; CULTURE IF INDICATED CULT NOT INDICATED
[2016-11-16 13:18] LABS: ALT (GPT) 33 U/L (12-78); ANION GAP 9 MEQ/L (5-15); AST (GOT) 16 U/L (15-37); BICARBONATE 26.5 MEQ/L (21.0-32.0); BLOOD UREA NITROGEN 16 MG/DL (7-18); CHLORIDE 99 MEQ/L (98-107); GLOMERULAR FILTRATION RATE 66 ML/MIN (>89); POTASSIUM 3.8 MEQ/L (3.5-5.1); SODIUM (NA) 134 MEQ/L (136-145)
[2016-11-16 13:19] LABS: ALKALINE PHOSPHATASE 55 U/L (45-117); TOTAL BILIRUBIN ADULT 0.3 MG/DL (0.2-1.0)
[2016-11-16] MEDS ORDERED: IOHEXOL 350 MG/ML 10 ML VIAL (for RAD DIAG) IV ONE (14:34)
--- NOTE | 2016-11-16 15:10 | RADRPT ---
EXAM DATE/TIME: 11/16/2016 14:39 [place] COMPARISON: CTA THORACIC ABDOMINAL AORTA W 3D RECON, September 14, 2016, 10:07. INDICATIONS : Evaluate for dissection. IV CONTRAST: 100 cc Omnipaque 350 (iohexol) IV RADIATION DOSE: 12.24 CTDIvol (mGy) MEDICAL HISTORY : Cardiovascular disease. Stroke SURGICAL HISTORY : CABG ENCOUNTER: Initial ACUITY: 1 day PAIN SCALE: 2/10 LOCATION: Bilateral flank TECHNIQUE: Volumetric scanning was performed using a multi-row detector CT scanner. The data was post processed with a variety of visualization algorithms including full volume maximum intensity projection, multi -planar sliding thin slab reformation, curved planar reformation, and surface rendering techniques. Using automated exposure control and adjustment of the mA and/or kV according to patient size, radiat ion dose was kept as low as reasonably achievable to obtain optimal diagnostic quality images. FINDINGS: There is excellent visualization of the ascending and descending thoracic aorta. The ascending aorta is intact. There is minimal atherosclerotic vascular disease in the descending a jaki with very minimal mural thrombus. There is no evidence for a dissection to the level of the moshe acs. There is extensive atherosclerotic disease present in the distal aorta. The lumen of the distal aort a measures approximately 1 cm. Endovascular stents are present in the common iliacs bilaterally. Th ere is no axillary adenopathy. There are no suspicious lung lesions identified. There is no pericardial effusion. Moderate coronary artery calcifications are seen including the lef t main and proximal right main. Liver, spleen, pancreas, adrenal glands and kidneys are unremarkable. Pelvic contents appear normal. CONCLUSION: 1. There is no evidence for an aortic dissection. 2. There is probably inflow limiting stenosis of the distal aorta above the iliac stents. There is inflow limiting stenosis involving both common femoral arteries just proximal to the bifurcation with the superficial femoral artery and profunda. Anton Amado MD FACR on November 16, 2016 at 15:02 Board Certified Radiologist. This report was verified electronically.
[2016-11-16] MEDS ORDERED: ZOSY3.375P IV (15:29)
[2016-11-16] MEDS ORDERED: oxyCODONE/ACETAMINOPHEN 5 MG/325 MG TAB PO ONE (16:45)
[2016-11-16] MEDS ORDERED: LORazepam 0.5 MG TAB PO ONE (16:45)
--- NOTE | 2016-11-16 18:24 | PD ---
HPI Chief Complaint: General Weakness Time Seen by Provider: 12:31 Travel History International Travel<30 days: No Contact w/Intl Traveler<30days: No Traveled to known affect area: No History of Present Illness HPI Patient is a 66-year-old male who comes in complaining of generalized weakness. He was recently admitted to the hospital for a prolonged stay due to aortitis. He was discharged a week ago. He says he was feeling well until yesterday when his leg started to hurt him, and he felt weak all over. He says he felt very thirsty as if he was dehydrated. He never had any fever or chills. He says that he was supposed to see his primary doctor today, but he wasn't feeling well so he came here instead. He has not really had any chest pain, he says he occasionally gets a sharp pain to the bottom of his left ribs, but lasts a second or 2 and goes away. He denies any shortness of breath. He does say that prior to feeling weak, he feels like he exerted himself a lot more than he has been use to. He also says that he has been feeling very anxious and has history of anxiety attacks. PFSH Past Medical History Hx Anticoagulant Therapy: Yes (ASA) Cardiac Catheterization: Yes (2009) Cardiovascular Problems: Yes (HTN, OPEN HEART SURGERY SX 2) High Cholesterol: Yes Chest Pain: Yes Cerebrovascular Accident: Yes (TIA 2010) Coronary Artery Disease: Yes Gastrointestinal Disorders: Yes GERD: Yes Hypertension: Yes Implanted Vascular Access Dvce: Yes Neurologic: Yes Myocardial Infarction: Yes (X2) Tetanus Vaccination: < 5 Years Influenza Vaccination: Yes Past Surgical History AICD: Yes (lead ) Cardiac Surgery: Yes (left carotid endarterectomy in April 2011) Coronary Artery Bypass Graft: Yes (3 VESSEL 2001, 1 vessle and valve 2009) Coronary Stent: Yes Pacemaker: Yes (wire but no pacer per pt) Other Surgery: Yes (TRIPLE BYPASS IN 2001, SINGLE BYPASS IN 2009) Social History Alcohol Use: Yes (daily 4 SHOTS OF WISKEY ) Tobacco Use: No (QUIT ) Substance Use: Yes (cannabis, everyday wednesday) Allergies-Medications (Allergen,Severity, Reaction): Coded Allergies: MRI PRECAUTION (Verified Allergy, Severe, PACEMAKER LEAD PER DR MARTINEZ - 08/01/2010 [facility], 11/16/16) Nitrates (Verified Allergy, Severe, Hypotension, 11/16/16) Reported Meds & Prescriptions Reported Meds & Active Scripts Active Nifedipine ER 24 HR (Nifedipine) 30 Mg Tab 30 Mg PO DAILY Reported Zosyn Inj (Piperacillin Sod/Tazobactam Sod) 3.375 Gm Inj 3.375 Gm IV Q6HR Cilostazol 50 Mg Tab 50 Mg PO BID Multi Vitamin (Multiple Vitamin) 1 Tab Tab 1 Tab PO DAILY Asacol HD (Mesalamine) 800 Mg Tab 800 Mg PO BID Swallow whole. Take on an empty stomach. Lovastatin 40 Mg Tab 80 Mg PO HS Lisinopril 20 Mg Tab 20 Mg PO BID Plavix (Clopidogrel Bisulfate) 75 Mg Tab 75 Mg PO DAILY Canasa Supp (Mesalamine) 1,000 Mg Supp 1,000 Mg KS HS Review of Systems Except as stated in HPI: all other systems reviewed are Neg General / Constitutional: No: Fever, Chills Eyes: No: Blurred Vision HENT: No: Headaches, Lightheadedness Respiratory: No: Cough, Shortness of Breath Gastrointestinal: No: Nausea, Vomiting Musculoskeletal: Positive: Weakness, No: Edema, Pain Skin: No Rash, No Change in Pigmentation Neurologic: No: Dizziness, Syncope Psychiatric: Positive: Anxiety Physical Exam Narrative GENERAL: Awake and alert, in no acute distress. SKIN: Warm and dry. HEAD: Atraumatic. Normocephalic. EYES: Pupils equal and round. No scleral icterus. ENT: Mucous membranes pink and moist. NECK: Trachea midline. No JVD. CARDIOVASCULAR: Regular rate and rhythm. No murmur appreciated. RESPIRATORY: No accessory muscle use. Clear to auscultation. Breath sounds equal bilaterally. GASTROINTESTINAL: Abdomen soft, non-tender, nondistended. MUSCULOSKELETAL: No obvious deformities. No clubbing. No cyanosis. No edema. Pedal pulses intact. NEUROLOGICAL: Awake and alert. No obvious cranial nerve deficits. Motor grossly within normal limits. Normal speech. PSYCHIATRIC: Appropriate mood and affect; insight and judgment normal. Data Data Last Documented VS Vital Signs Date Time Temp Pulse Resp B/P Pulse Ox O2 Delivery O2 Flow Rate FiO2 11/16/16 17:18 109 20 121/76 97 Nasal Cannula 2 11/16/16 11:53 97.9 Orders Complete Blood Count With Diff (11/16/16 11:50) Comprehensive Metabolic Panel (11/16/16 11:50) Lipase (11/16/16 11:50) Lactic Acid (11/16/16 11:50) Prothrombin Time / Inr (Pt) (11/16/16 11:50) Act Partial Throm Time (Ptt) (11/16/16 11:50) Urinalysis - C+S If Indicated (11/16/16 11:50) Iv Access Insert/Monitor (11/16/16 11:50) Ecg Monitoring (11/16/16 11:50) Oximetry (11/16/16 11:50) Sodium Chloride 0.9% Flush (Ns Flush) (11/16/16 12:00) Electrocardiogram (11/16/16 11:50) Cta Thor Abd Aorta W Iv C W3d (11/16/16 12:58) Iohexol 350 Inj (Omnipaque 350 Inj) (11/16/16 14:34) Oxycodone-Acetamin 5-325 Mg (Percocet (11/16/16 16:45) Lorazepam (Ativan) (11/16/16 16:45) Labs Laboratory Tests Test 11/16/16 12:30 White Blood Count 6.7 TH/MM3 Red Blood Count 4.81 MIL/MM3 Hemoglobin 12.6 GM/DL Hematocrit 38.1 % Mean Corpuscular Volume 79.1 FL Mean Corpuscular Hemoglobin 26.1 PG Mean Corpuscular Hemoglobin 33.0 % Concent Red Cell Distribution Width 17.5 % Platelet Count 509 TH/MM3 Mean Platelet Volume 8.1 FL Neutrophils (%) (Auto) 69.3 % Lymphocytes (%) (Auto) 16.1 % Monocytes (%) (Auto) 12.4 % Eosinophils (%) (Auto) 1.1 % Basophils (%) (Auto) 1.1 % Neutrophils # (Auto) 4.6 TH/MM3 Lymphocytes # (Auto) 1.1 TH/MM3 Monocytes # (Auto) 0.8 TH/MM3 Eosinophils # (Auto) 0.1 TH/MM3 Basophils # (Auto) 0.1 TH/MM3 CBC Comment DIFF FINAL Differential Comment Prothrombin Time 11.3 SEC Prothromb Time International 1.0 RATIO Ratio Activated Partial 30.2 SEC Thromboplast Time Urine Color YELLOW Urine Turbidity CLEAR Urine pH 7.5 Urine Specific [place] 1.014 Urine Protein NEG mg/dL Urine Glucose (UA) NEG mg/dL Urine Ketones NEG mg/dL Urine Occult Blood NEG Urine Nitrite NEG Urine Bilirubin NEG Urine Urobilinogen LESS THAN 2.0 MG/DL Urine Leukocyte Esterase NEG Urine RBC LESS THAN 1 /hpf Urine WBC 1 /hpf Microscopic Urinalysis Comment CULT NOT INDICATED Sodium Level 134 MEQ/L Potassium Level 3.8 MEQ/L Chloride Level 99 MEQ/L Carbon Dioxide Level 26.5 MEQ/L Anion Gap 9 MEQ/L Blood Urea Nitrogen 16 MG/DL Creatinine 1.11 MG/DL Estimat Glomerular Filtration 66 ML/MIN Rate Random Glucose 94 MG/DL Lactic Acid Level 1.1 mmol/L Calcium Level 9.5 MG/DL Total Bilirubin 0.3 MG/DL Aspartate Amino Transf 16 U/L (AST/SGOT) Alanine Aminotransferase 33 U/L (ALT/SGPT) Alkaline Phosphatase 55 U/L Total Protein 8.0 GM/DL Albumin 3.7 GM/DL Lipase 109 U/L MDM Medical Decision Making Medical Screen Exam Complete: Yes Emergency Medical Condition: Yes Medical Record Reviewed: Yes Interpretation(s) ECG shows sinus tachycardia at 110, no ST elevation or depression, normal intervals. Differential Diagnosis Electrolyte abnormality versus infection versus aortic dissection/leak Narrative Course Patient is a 66-year-old male comes in complaining of generalized weakness. He is currently receiving Zosyn for aortitis via PICC line. Exam shows no acute abnormalities. IV established, labs sent. Labs show no acute abnormalities. CTA of the aorta was performed, shows no evidence of dissection. There is some stenosis of the aorta above the iliac stents that has limited flow. I discussed this with Dr. Schwartz who has seen the patient in the past, he says this is not new and patient can follow-up in the office as scheduled. Patient has remained tachycardic in the emergency department. He reports feeling very anxious, and says that he has been making some difficult phone calls. Given Small dose of Ativan as well as Percocet for pain. Patient had improvement of his tachycardia and says he is feeling much better. Patient offered admission, but feels he is able to go home at this time. He has an appointment with his primary doctor tomorrow. Patient advised to keep all of his appointments. Advised to continue his medications as directed. Advised to drink plenty of fluids. Advised to return to the ED as needed for any worsening symptoms. Diagnosis Primary Impression: Weakness Patient Instructions: General Instructions, Weakness (ED) Additional Instructions: Follow up with your doctors as scheduled. Take all of your medications. Return to the ED as needed for any worsening symptoms. Disposition: 01 DISCHARGE HOME Condition: Stable Haylee Kuhn MD Nov 16, 2016 18:24
--- NOTE | 2016-11-17 14:55 | EKG ---
Date Performed: 11/16/2016 Time Performed: 12:12:48 PTAGE: 66 years EKG: SINUS TACHYCARDIA ABNORMAL RHYTHM ECG PREVIOUS TRACING 09/14/2016 08.08.06 Compared to previous tracing, the sinus rate has increased and the QRS voltage is lower. DOCTOR: Chano Patel Interpretating Date/Time 11/17/2016 14:51:48
== END 2016-11-16 19:06 | disposition home or self-care (01) ==
LOC: NEPE 11:28
DX: R53.1 Weakness (principal); R00.0 Tachycardia, unspecified; R07.9 Chest pain, unspecified; I10 Essential (primary) hypertension; E78.00 Pure hypercholesterolemia, unspecified; I25.10 Atherosclerotic heart disease of native coronary artery without angina pectoris; K21.9 Gastro-esophageal reflux disease without esophagitis; I25.2 Old myocardial infarction; Z86.73 Personal history of transient ischemic attack (TIA), and cerebral infarction without residual deficits; Z87.891 Personal history of nicotine dependence; Z79.82 Long term (current) use of aspirin
CPT/HCPCS: 71275; 74174; 80053; 81001; 83605; 83690; 85025; 85610; 85730; 93005; 99285; Q9967